=== PATIENT | female | born 1990 | race Caucasian/White ===

== ENCOUNTER → 2017-10-13 15:28 | Outpatient (REF) | payer SELFPAY ==
[2017-10-18 13:08] LABS: TB Interpretation Negative (NEGAT)
== END ==
LOC: LBO 15:28
PROVIDERS: PCP Physician Assistant Medical; Visit Provider Nurse Practitioner Family
DX: Z02.1 Encounter for pre-employment examination (principal); Z11.1 Encounter for screening for respiratory tuberculosis

== ENCOUNTER 2017-12-21 13:12 | Emergency (ER) | payer MEDICAID, SELFPAY ==
[2017-12-21 13:51] VITALS: PULSE 96; RESP 16; RESP 4; RESP 8; O2SAT 97
[2017-12-21] MEDS: Albuterol/Ipratropium 3 ML UPD VIAL UPD (13:51)
[2017-12-21 13:53] VITALS: BP 102/62; PULSE 96; RESP 16; TEMP 36.3; O2SAT 97
[2017-12-21] MEDS: methylPREDNISolone SUCC 125 MG VIAL IM (14:09)
--- NOTE | 2017-12-22 13:49 | W.ED.GENAD ---
Discharge Plan Disposition Patient Disposition: HOME Condition: Good Discharge Details Chief Complaint: RespSymp Clinical Impression: Asthma exacerbation, URI (upper respiratory infection) Primary Care Provider: Awilda Martin ED Provider: Abdon Wilson Home Meds and New Rx's Prescriptions: New albuterol sulfate 1.25 mg/3 mL solution for nebulization 2.5 mg IH Q4H PRN (Reason: shortness of breath or wheezing) Qty: 75 RF: 0 prednisone 50 MG tablet 50 mg PO DAILY Qty: 5 RF: 0 azithromycin 500 mg tablet See Label Instructions .ROUTE .COMPLEX Qty: 6 RF: 0 No Action levothyroxine [Synthroid] 50 MCG tablet 75 mcg PO DAILY RF: 0 escitalopram oxalate [Lexapro] 10 MG tablet 30 mg PO DAILY RF: 0 ibuprofen 800 MG tablet 800 mg PO TID PRNQty: 15 RF: 0 lorazepam 1 MG tablet 1 mg PO PRN PRNRF: 0 Discharge Instructions Instructions: Asthma (ED), Upper Respiratory Infection (ED) Additional Instructions: Please take the breathing treatments every 4 hours as directed. Please take the steroid as directed. If you do not have any improvement of your symptoms after 24 hours please begin taking the antibiotic. Please stop smoking. If you notice any worsening of your symptoms, or any new symptoms such as vomiting, diarrhea, fever, chills, shortness of breath, chest pain, numbness, weakness, or fainting , please return immediately to the emergency department for reevaluation. Please follow up with your primary care provider as soon as possible for reassessment and reevaluation. As always, it was a pleasure participating in your medical care today. Referrals: Awilda Martin PA [Primary Care Provider] - Discharge Data Discharge Date/Time-TO BE ENTERED AT DEPARTURE: 12/21/17 14:26 Medical Decision Making This is a pleasant 27-year-old female who presents for evaluation of cough, with productive yellow sputum the last 4 days. Physical exam demonstrates mild wheezes, no significant crackles or rhonchi. Pulse oximetry demonstrates excellent oxygenation, no significant tachypnea. Vital signs are normal. She does have clinical symptoms of an upper respiratory infection, however with her tobacco use history, cough with chills, productive yellow sputum, and mild wheezes I feel that she would benefit from breathing treatment. Patient was given breathing treatment and after this she felt much improved. Wheezes notably improved. Signs and symptoms are consistent with upper respiratory infection, with associated reactive airway disease. We will give steroids for home use, antibiotic for potential atypical coverage of both sinus infection and potential respiratory infection, and instructions for close follow-up with PCP. We discussed red flags which to return the patient understands. I have extensively reviewed the treatment plan and discharge instructions with the patient and their family. I have addressed all patient concerns at this time. The patient and family was made aware of what symptoms to monitor for that would warrant a return to the emergency department. Discussed the plan with the patient and family, they demonstrate verbal understanding and agreement with our assessment and plan at this time. HPI General Date/Time Provider Initiated Documentation: 12/21/17 13:33. HPI Narrative: This is a 27-year-old female with a past medical history of tubal ligation, previous history of tobacco abuse, who presents today for evaluation of cough for the last 4 days with associated yellow phlegm, occasional chills, and mild shortness of breath. She has been using her inhaler 4 times per day and has had some improvement with this. She denies any associated symptoms of fever, vomiting, diarrhea, pleuritic chest pain. Denies PE risk factors such as recent long car rides, immobilization, recent surgery, prior history of DVT or PE, family history of PE or DVT, morbid obesity, exogenous estrogen and smoking, hemoptysis, history of cancer. She does admit to other sick contacts at work and at home. She denies any aggravating or relieving factors. She denies any IV or illicit drug use. She denies any other symptoms at this time. Related Data Home Medications Medication Instructions Recorded Confirmed levothyroxine [Synthroid] 75 mcg PO DAILY tab-cap 10/20/12 12/21/17 escitalopram oxalate [Lexapro] 30 mg PO DAILY 11/30/15 12/21/17 lorazepam 1 mg PO PRN PRN 11/05/16 12/21/17 ibuprofen 800 mg PO TID PRN #15 tab 07/31/17 12/21/17 albuterol sulfate 2.5 mg IH Q4H PRN #75 ml 12/21/17 azithromycin See Label Instructions .ROUTE 12/21/17 .COMPLEX #6 tab prednisone 50 mg PO DAILY #5 tab 12/21/17 Previous Rx's Medication Instructions Recorded ibuprofen 800 mg PO TID PRN #15 tab 07/31/17 albuterol sulfate 2.5 mg IH Q4H PRN #75 ml 12/21/17 azithromycin See Label Instructions .ROUTE 12/21/17 .COMPLEX #6 tab prednisone 50 mg PO DAILY #5 tab 12/21/17 Allergies Allergy/AdvReac Type Severity Reaction Status Date / Time trazodone AdvReac Severe Headache Unverified 01/21/17 21:20 General Stated Complaint: RespSymp RE: 3 Review of Systems Review of Systems All systems reviewed & are unremarkable except as noted in HPI and below PFSH Social History Smoking/Tobacco Use Status: Current every day Surgical History Cervical Procedure Ligation of fallopian tube Exam Narrative Exam Narrative: 1.Const: Well-nourished, Well-developed, appearing stated age 2.Eyes: PERRL, no conjunctival injection, and symmetrical lids. 3.ENT: Atraumatic external nose and ears. Moist MM. Neck: Symmetric, trachea midline, No thyromegaly. Mild congestion noted. No significant erythema in the posterior oropharynx. Patient demonstrates good movement of cervical neck. There is no nuchal rigidity, no nuchal tenderness. Patient is able to flex the neck without any difficulty or significant pain. Negative Kernig's and Brudzinski sign. 4.CVS: +S1/S2, No murmurs or gallops. Peripheral pulses 2+ and equal in all extremities. Brisk capillary refill in all extremities. 5.RESP: Unlabored respiratory effort. No significant rhonchi, minimal wheezes throughout, no significant crackles. 6.GI: Soft, Nontender/Nondistended, No hepatosplenomegaly. No guarding or rebound. 7.MSK: Normocephalic/Atraumatic, Extremities w/o deformity or ttp No cyanosis or clubbing, Normal movement of all extremities 8.Skin: Warm, Dry. No rashes or lesions. 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 Sensation grossly intact, no focal neurologic deficits. 10.Psych: (AAO) x3. Appropriate mood and affect Course Vital Signs Pulse 96 H 12/21/17 13:51 Respiratory Rate 16 12/21/17 13:51 Pulse Oximetry 97 10/09/18 13:51 Temperature 36.3 C L 12/21/17 13:53 Temperature Source Skin 12/21/17 13:53 Pulse 96 H 12/21/17 13:53 Respiratory Rate 16 12/21/17 13:53 Respiratory Effort Non-Labored 12/21/17 14:18 Respiratory Depth Normal 12/21/17 14:18 Blood Pressure 102/62 12/21/17 13:53 Blood Pressure Position Sitting 12/21/17 13:53 Pulse Oximetry 97 12/21/17 13:53 Oxygen Delivery Method Room Air 12/21/17 13:53 Oxygen Flow Rate 0 12/21/17 13:53 Pain Level 4 12/21/17 14:20
== END 2017-12-21 14:26 | disposition home or self-care (01) ==
PROVIDERS: Emergency Provider Student in an Organized Health Care Education/Training Program; PCP Physician Assistant Medical
DX: J45.901 Unspecified asthma with (acute) exacerbation (principal); J06.9 Acute upper respiratory infection, unspecified; F17.210 Nicotine dependence, cigarettes, uncomplicated
CPT/HCPCS: 94640; 96372; 99284; J2930; J7620

== ENCOUNTER 2017-12-22 20:16 | Outpatient (REF) | payer MEDICAID, SELFPAY ==
[2017-12-22 20:39] LABS: TSH 1.04 uIU/mL (0.358-3.74)
== END 2017-12-22 20:36 ==
LOC: NCHCN 20:16
PROVIDERS: PCP Physician Assistant Medical; Visit Provider Physician Assistant Medical
DX: E03.9 Hypothyroidism, unspecified (principal)
CPT/HCPCS: 84443

== ENCOUNTER 2017-12-26 21:40 | Emergency (ER) | payer MEDICAID, SELFPAY ==
[2017-12-26 21:48] VITALS: BP 135/82; PULSE 81; RESP 16; TEMP 36.8; O2SAT 97
--- NOTE | 2017-12-26 22:07 | W.ED.GENAD ---
Discharge Plan Disposition Patient Disposition: HOME Discharge Details Chief Complaint: Cellulitis Clinical Impression: Cellulitis of great toe of right foot Primary Care Provider: Awilda Martin ED Provider: Emiliano Goode Home Meds and New Rx's Prescriptions: New cephalexin [Keflex] 500 mg capsule 500 mg PO QID Qty: 38 RF: 0 Continue levothyroxine [Synthroid] 50 MCG tablet 75 mcg PO DAILY RF: 0 escitalopram oxalate [Lexapro] 10 MG tablet 30 mg PO DAILY RF: 0 ibuprofen 800 MG tablet 800 mg PO TID PRNQty: 15 RF: 0 albuterol sulfate 1.25 mg/3 mL solution for nebulization 2.5 mg IH Q4H PRN (Reason: shortness of breath or wheezing) Qty: 75 RF: 0 lorazepam 1 MG tablet 1 mg PO PRN PRNRF: 0 Discontinued prednisone 50 MG tablet 50 mg PO DAILY Qty: 5 RF: 0 Discharge Instructions Instructions: Cellulitis (ED) Additional Instructions: Take antibiotic as prescribed. Your provided a dose tonight and a dose to take tomorrow morning. Fill your prescription tomorrow morning and continue as prescribed. Please call your rail flaw detector operator tomorrow to arrange follow-up. It is important that you be seen this week in follow-up. Return to the ER for any worsening or new concerning symptoms. Medical Decision Making Medical Records 19-year-old female with right great toe cellulitis 4 weeks status post toenail removal. Started patient on Keflex. Plan to have her follow-up with her rail flaw detector operator tomorrow. HPI General Mode of arrival: ambulatory. Date/Time Provider Initiated Documentation: 12/26/17 21:50. Limitations to Documentation: no limitations. Information obtained by: patient. HPI Narrative: 27-year-old female presents with right great toe pain. Patient notes that 4 weeks ago she was seen by podiatry and had her toenail removed for recurrent onychomycosis. Toe seem to be improving for a while and then over the past few days has increased in swelling and redness. Intensity is moderate. Toe is sore and tender. No associated fever. Related Data Home Medications Medication Instructions Recorded Confirmed levothyroxine [Synthroid] 75 mcg PO DAILY tab-cap 10/20/12 12/26/17 escitalopram oxalate [Lexapro] 30 mg PO DAILY 11/30/15 12/26/17 lorazepam 1 mg PO PRN PRN 11/05/16 12/26/17 ibuprofen 800 mg PO TID PRN #15 tab 07/31/17 12/26/17 albuterol sulfate 2.5 mg IH Q4H PRN #75 ml 12/21/17 12/26/17 cephalexin [Keflex] 500 mg PO QID #38 cap 12/26/17 Previous Rx's Medication Instructions Recorded ibuprofen 800 mg PO TID PRN #15 tab 07/31/17 albuterol sulfate 2.5 mg IH Q4H PRN #75 ml 12/21/17 cephalexin [Keflex] 500 mg PO QID #38 cap 12/26/17 Allergies Allergy/AdvReac Type Severity Reaction Status Date / Time trazodone AdvReac Severe Headache Unverified 12/26/17 21:47 General Stated Complaint: Cellulitis RE: 4 Review of Systems Constitutional Denies fever(s) Integumentary/Breasts [facility] as [facility] Social History Smoking/Tobacco Use Status: Current every day Surgical History Cervical Procedure Ligation of fallopian tube Exam Const General: healthy appearing, no acute distress and well developed Cardio Rate: regular rate Rhythm: regular rhythm Pulses: dorsalis pedis pulses present Skin Other: Right great toe with toenail removed, erythema of the toe extending from interphalangeal joint distally. No tracking of erythema. Extrem Other: rt great toe: distal sensation and motor intact. Course Vital Signs Temperature 36.8 C 12/26/17 21:48 Pulse 81 12/26/17 21:48 Respiratory Rate 16 12/26/17 21:48 Blood Pressure 135/82 12/26/17 21:48 Pulse Oximetry 97 12/26/17 21:48 Temperature 36.8 C 12/26/17 21:48 Temperature Source Tympanic 12/26/17 22:01 Pulse 81 12/26/17 21:48 Respiratory Rate 16 12/26/17 21:48 Respiratory Effort 12/26/17 21:48 Blood Pressure 135/82 12/26/17 21:48 Blood Pressure Position Sitting 12/26/17 21:48 Pulse Oximetry 97 12/26/17 21:48 Oxygen Delivery Method Room Air 12/26/17 21:48 Oxygen Flow Rate 0 12/26/17 21:48 Pain Level 7 12/26/17 21:48
[2017-12-26] MEDS: Cephalexin 500 MG CAP PO ×2 (22:11→22:12)
--- NOTE | 2017-12-26 22:20 | ED.GENADUL_ITS ---
Discharge Plan Disposition Patient Disposition: HOME Discharge Details Chief Complaint: Cellulitis Clinical Impression: Cellulitis of great toe of right foot Primary Care Provider: Awilda Martin ED Provider: Emiliano Goode Home Meds and New Rx's Prescriptions: New cephalexin [Keflex] 500 mg capsule 500 mg PO QID Qty: 38 RF: 0 Continue levothyroxine [Synthroid] 50 MCG tablet 75 mcg PO DAILY RF: 0 escitalopram oxalate [Lexapro] 10 MG tablet 30 mg PO DAILY RF: 0 ibuprofen 800 MG tablet 800 mg PO TID PRNQty: 15 RF: 0 albuterol sulfate 1.25 mg/3 mL solution for nebulization 2.5 mg IH Q4H PRN (Reason: shortness of breath or wheezing) Qty: 75 RF: 0 lorazepam 1 MG tablet 1 mg PO PRN PRNRF: 0 Discontinued prednisone 50 MG tablet 50 mg PO DAILY Qty: 5 RF: 0 Discharge Instructions Instructions: Cellulitis (ED) Additional Instructions: Take antibiotic as prescribed. Your provided a dose tonight and a dose to take tomorrow morning. Fill your prescription tomorrow morning and continue as prescribed. Please call your recorder helper seismograph tomorrow to arrange follow-up. It is important that you be seen this week in follow-up. Return to the ER for any worsening or new concerning symptoms. Medical Decision Making Medical Records 19-year-old female with right great toe cellulitis 4 weeks status post toenail removal. Started patient on Keflex. Plan to have her follow-up with her recorder helper seismograph tomorrow. HPI General Mode of arrival: ambulatory . Date/Time Provider Initiated Documentation: 12/26/17 21:50 . Limitations to Documentation: no limitations . Information obtained by: patient . HPI Narrative: 27-year-old female presents with right great toe pain. Patient notes that 4 weeks ago she was seen by podiatry and had her toenail removed for recurrent onychomycosis. Toe seem to be improving for a while and then over the past few days has increased in swelling and redness. Intensity is moderate. Toe is sore and tender. No associated fever. Related Data Home Medications Medication Instructions Recorded Confirmed levothyroxine [Synthroid] 75 mcg PO DAILY tab-cap 10/20/12 12/26/17 escitalopram oxalate [Lexapro] 30 mg PO DAILY 11/30/15 12/26/17 lorazepam 1 mg PO PRN PRN 11/05/16 12/26/17 ibuprofen 800 mg PO TID PRN #15 tab 07/31/17 12/26/17 albuterol sulfate 2.5 mg IH Q4H PRN #75 ml 12/21/17 12/26/17 cephalexin [Keflex] 500 mg PO QID #38 cap 12/26/17 Previous Rx's Medication Instructions Recorded ibuprofen 800 mg PO TID PRN #15 tab 07/31/17 albuterol sulfate 2.5 mg IH Q4H PRN #75 ml 12/21/17 cephalexin [Keflex] 500 mg PO QID #38 cap 12/26/17 Allergies Allergy/AdvReac Type Severity Reaction Status Date / Time trazodone AdvReac Severe Headache Unverified 12/26/17 21:47 General Stated Complaint: Cellulitis RE: 4 Review of Systems Constitutional Denies fever(s) Integumentary/Breasts Reports as per [facility]PI [facility] Social History Smoking/Tobacco Use Status: Current every day Surgical History Cervical Procedure Ligation of fallopian tube Exam Const General: healthy appearing, no acute distress and well developed Cardio Rate: regular rate Rhythm: regular rhythm Pulses: dorsalis pedis pulses present Skin Other: Right great toe with toenail removed, erythema of the toe extending from interphalangeal joint distally. No tracking of erythema. Extrem Other: rt great toe: distal sensation and motor intact. Course Vital Signs Temperature 36.8 C 12/26/17 21:48 Pulse 81 12/26/17 21:48 Respiratory Rate 16 12/26/17 21:48 Blood Pressure 135/82 12/26/17 21:48 Pulse Oximetry 97 12/26/17 21:48 Temperature 36.8 C 12/26/17 21:48 Temperature Source Tympanic 12/26/17 22:01 Pulse 81 12/26/17 21:48 Respiratory Rate 16 12/26/17 21:48 Respiratory Effort 12/26/17 21:48 Blood Pressure 135/82 12/26/17 21:48 Blood Pressure Position Sitting 12/26/17 21:48 Pulse Oximetry 97 12/26/17 21:48 Oxygen Delivery Method Room Air 12/26/17 21:48 Oxygen Flow Rate 0 12/26/17 21:48 Pain Level 7 12/26/17 21:48
== END 2017-12-26 22:43 | disposition home or self-care (01) ==
LOC: ER 22:56
PROVIDERS: Emergency Provider Student in an Organized Health Care Education/Training Program; PCP Physician Assistant Medical
DX: T81.40XA Infection following a procedure, unspecified, initial encounter (principal); L03.031 Cellulitis of right toe; Y83.8 Other surgical procedures as the cause of abnormal reaction of the patient, or of later complication, without mention of misadventure at the time of the procedure
CPT/HCPCS: 99283

== ENCOUNTER 2018-05-06 14:18 | Emergency (ER) | payer MEDICAID, SELFPAY ==
--- NOTE | 2018-05-06 14:22 | NUR.NOTE ---
tooth eric started 3 days ago
[2018-05-06 14:23] VITALS: PULSE 69; RESP 18; TEMP 37.2; O2SAT 95
--- NOTE | 2018-05-06 14:23 | W.ED.GENAD ---
Discharge Plan Disposition Patient Disposition: HOME Condition: Stable Discharge Details Chief Complaint: DentalOral Clinical Impression: Pain, dental Primary Care Provider: Awilda Martin ED Provider: Olegario Shaikh Home Meds and New Rx's Prescriptions: Continued levothyroxine [Synthroid] 50 MCG tablet 75 mcg PO DAILY RF: 0 escitalopram oxalate [Lexapro] 10 MG tablet 30 mg PO DAILY RF: 0 ibuprofen 800 MG tablet 800 mg PO TID PRNQty: 15 RF: 0 albuterol sulfate 1.25 mg/3 mL solution for nebulization 2.5 mg IH Q4H PRN (Reason: shortness of breath or wheezing) Qty: 75 RF: 0 cephalexin [Keflex] 500 mg capsule 500 mg PO QID Qty: 38 RF: 0 lorazepam 1 MG tablet 1 mg PO PRN PRNRF: 0 Discharge Instructions Instructions: Toothache (ED) Additional Instructions: you can take 1000mg tylenol and 600mg ibuprofen every 6 hours for pain as needed follow up as scheduled on Wednesday with your dentist as scheduled if you have difficulty breathing or swallowing liquids return to the emergency department Medical Decision Making 27 yo female comes in with dental pain for 3 days in the left upper and lower teeth. has hx of caries and called her dentist and is being seen on Wednesday, came here in the meantime for an evaluation. 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 She has pain in the mid upper and lower left molars with pain with percussion, no visible fluctuance that I can drain, has numerous caries. I suspect pulpitis, will start abx and she will f/u with dentist, return precautions given Differential Diagnosis caries, pulpitis, abscess HPI General Mode of arrival: ambulatory. Date/Time Provider Initiated Documentation: 05/06/18 14:19. Limitations to Documentation: no limitations. Information obtained by: patient. History of Present Illness 27 year old F presents to the emergency department with the chief complaint of dental pain, described as moderate, with intensity rated at 4. Quality is described as aching, and is localized to the mouth. Patient reports no radiation. Patient started experiencing this day(s) (3) and it has been constant. No relieving factors improve symptom(s), No exacerbating factors reported . Patient notes no other symptoms.. Patient did receive the following treatments prior to arrival, NSAID Related Data Home Medications Medication Instructions Recorded Confirmed levothyroxine [Synthroid] 75 mcg PO DAILY tab-cap 10/20/12 12/26/17 escitalopram oxalate [Lexapro] 30 mg PO DAILY 11/30/15 12/26/17 lorazepam 1 mg PO PRN PRN 11/05/16 12/26/17 ibuprofen 800 mg PO TID PRN #15 tab 07/31/17 12/26/17 albuterol sulfate 2.5 mg IH Q4H PRN #75 ml 12/21/17 12/26/17 cephalexin [Keflex] 500 mg PO QID #38 cap 12/26/17 Previous Rx's Medication Instructions Recorded ibuprofen 800 mg PO TID PRN #15 tab 07/31/17 albuterol sulfate 2.5 mg IH Q4H PRN #75 ml 12/21/17 cephalexin [Keflex] 500 mg PO QID #38 cap 12/26/17 Allergies Allergy/AdvReac Type Severity Reaction Status Date / Time trazodone AdvReac Severe Headache Unverified 05/06/18 14:28 General RE: 4 Review of Systems Review of Systems All systems reviewed & are unremarkable except as noted in HPI and below Constitutional Denies chills, Denies fever(s) and Denies weakness ENT Denies change in voice Respiratory Denies cough Gastrointestinal Denies abdominal pain, Denies nausea and Denies vomiting Musculoskeletal Denies joint swelling Neurologic Denies weakness [facility] Surgical History Cervical Procedure Ligation of fallopian tube Social History Smoking and Tabacco status: Current every day Exam Const General: no acute distress Orientation: alert HENMT Head: normal to inspection Ears: external ears normal General nose exam: external nose normal Mouth: moist mucous membranes Eyes General: appearance normal, both eyes and all related structures Neck Neck: normal visual inspection Resp Effort & Inspection: normal respiratory effort and able to speak in complete sentences Cardio Rate: regular rate Skin General skin exam: no rashes or lesions noted Neuro General: alert and oriented x3 Extrem General: normal to inspection Psych Mental Status: mental status grossly normal
[2018-05-06 14:32] VITALS: PULSE 69; RESP 18; TEMP 37.2; O2SAT 95
== END 2018-05-06 14:38 | disposition home or self-care (01) ==
LOC: ER 14:35
PROVIDERS: Emergency Provider Emergency Medicine; PCP Physician Assistant Medical
DX: K08.89 Other specified disorders of teeth and supporting structures (principal); K02.9 Dental caries, unspecified
CPT/HCPCS: 99282

== ENCOUNTER 2018-05-14 09:43 | Emergency (ER) | payer MEDICAID, SELFPAY ==
[2018-05-14 09:51] VITALS: BP 129/72; PULSE 69; RESP 16; TEMP 36.5; O2SAT 98
--- NOTE | 2018-05-14 10:15 | ED.GENADUL_ITS ---
Discharge Plan Disposition Patient Disposition: HOME Condition: Stable Discharge Details Chief Complaint: DentalOral Clinical Impression: Pain, dental Primary Care Provider: Awilda Martin ED Provider: Travon Love Home Meds and New Rx's Prescriptions: Continued levothyroxine [Synthroid] 50 MCG tablet 75 mcg PO DAILY RF: 0 escitalopram oxalate [Lexapro] 10 MG tablet 30 mg PO DAILY RF: 0 ibuprofen 800 MG tablet 800 mg PO TID PRNQty: 15 RF: 0 albuterol sulfate 1.25 mg/3 mL solution for nebulization 2.5 mg IH Q4H PRN (Reason: shortness of breath or wheezing) Qty: 75 RF: 0 cephalexin [Keflex] 500 mg capsule 500 mg PO QID Qty: 38 RF: 0 lorazepam 1 MG tablet 1 mg PO PRN PRNRF: 0 Discharge Instructions Instructions: Toothache (ED), Dry Socket (ED) Additional Instructions: Please follow-up with dental services if pain continues and there is further concern. Also if you begin running a fever, severe increase in pain or discomfort, or any significant swelling to your tongue face or jaw also feel free to return to the emergency department for emergent reevaluation. Referrals: Awilda Martin PA [Primary Care Provider] - (Follow-up with dental provider or your primary care provider for reassessment. ) Medical Decision Making Patient presenting to the emergency department for chief complaint of dental pain. Patient states that she had a tooth removed on Wednesday beginning yesterday she started having a new increase in pain and discomfort. Patient does state history of dry socket with similar sensation. Examination shows what appears to be a food particle in the retained socket. Topical benzocaine gel was applied to the tooth and tooth socket was irrigated and suctioned which p atient tolerated very well. There is a dissolvable suture in place. Was not able to easily identify bone exposed in socket but no obvious clot was also visualized. Patient did state significant improvement of discomfort and pressure after irrigation and suctioning of the socket. Patient did state that she was able to obtain a emergency dental appointment at 1:00 this afternoon but since she had resolution of her discomfort after irrigation she stated she may observe her situation. Patient was informed that I did recommend close dental follow-up along with her continuing her antibiotics as prescribed. Patient given ketorolac injection to also help with pain control and was encouraged to continue to use [id number] medications as needed along with irrigation of the socket after eating. Return precautions were discussed. After discussion of diagnosis and plan of care patient has no further needs, questions, or concerns and states clear understanding to return to the emergency department for any worsening symptoms. HPI General Mode of arrival: ambulatory . Date/Time Provider Initiated Documentation: 05/14/18 09:59 . Limitations to Documentation: no limitations . Information obtained by: patient and RN notes reviewed . History of Present Illness 27 year old F presents to the emergency department with the chief complaint of Dental pain after tooth extraction, described as severe, with intensity rated at >10. Quality is described as sharp, and is localized to the mouth. Patient started experiencing this day(s) (1) and it has been constant. No relieving factors improve symptom(s), Patient notes no other symptoms.. Patient did receive the following treatments prior to arrival, NSAID Related Data Home Medications Medication Instructions Recorded Confirmed levothyroxine [Synthroid] 75 mcg PO DAILY tab-cap 10/20/12 05/14/18 escitalopram oxalate [Lexapro] 30 mg PO DAILY 11/30/15 05/14/18 lorazepam 1 mg PO PRN PRN 11/05/16 05/14/18 ibuprofen 800 mg PO TID PRN #15 tab 07/31/17 05/14/18 albuterol sulfate 2.5 mg IH Q4H PRN #75 ml 12/21/17 05/14/18 cephalexin [Keflex] 500 mg PO QID #38 cap 12/26/17 05/14/18 Previous Rx's Medication Instructions Recorded ibuprofen 800 mg PO TID PRN #15 tab 07/31/17 albuterol sulfate 2.5 mg IH Q4H PRN #75 ml 12/21/17 cephalexin [Keflex] 500 mg PO QID #38 cap 12/26/17 Allergies Allergy/AdvReac Type Severity Reaction Status Date / Time trazodone AdvReac Severe Headache Unverified 05/14/18 09:56 General Stated Complaint: DentalOral RE: 4 Review of Systems Constitutional Denies chills and Denies fever(s) ENT Reports as per HPI, Denies change in voice, Reports dental pain, Denies dysphagia, Denies throat swelling and Denies tongue swelling Cardiovascular Denies chest pain and Denies dyspnea Respiratory Denies dyspnea, Denies stridor and Denies wheezing Gastrointestinal Denies abdominal pain, Denies dysphagia, Denies nausea and Denies vomiting Integumentary/Breasts Denies rash Allergic/Immunologic Denies throat swelling, Denies tongue swelling and Denies wheezing [facility] Surgical History Cervical Procedure Ligation of fallopian tube Social History Smoking and Tabacco status: Current every day Exam Const General: cooperative Orientation: alert, awake and oriented x3 Limitations: mental status not altered HENMT Head: normal to inspection, normocephalic and atraumatic Ears: hearing grossly normal bilaterally, normal mastoids bilaterally and no periauricular adenopathy General nose exam: external nose normal Mouth: oropharynx normal, no drooling, no muffled voice, normal tongue and no trismus Teeth and gingiva: fair dentition and other (missing tooth 19 with open socket and food particle in socket) Throat: posterior oropharynx normal, tonsils normal and uvula midline Eyes General: appearance normal, both eyes and all related structures Pupils: PERRL Neck Neck: normal visual inspection, full ROM, no lymphadenopathy, no meningeal signs, trachea midline, supple, no anterior neck swelling and no midline deformity Resp Effort & Inspection: normal respiratory effort and able to speak in complete sentences Course Vital Signs Temperature 36.5 C 05/14/18 09:51 Pulse 69 05/14/18 09:51 Respiratory Rate 16 05/14/18 09:51 Blood Pressure 129/72 05/14/18 09:51 Pulse Oximetry 98 05/14/18 09:51 Temperature 36.5 C 05/14/18 09:51 Temperature Source Skin 05/14/18 09:51 Pulse 69 05/14/18 09:51 Respiratory Rate 16 05/14/18 09:51 Respiratory Effort Non-Labored 05/14/18 09:51 Blood Pressure 129/72 05/14/18 09:51 Pulse Oximetry 98 05/14/18 09:51 Pain Level 12 05/14/18 09:57
[2018-05-14] MEDS: Ketorolac 30 MG/ML VIAL IM (10:22)
[2018-05-14 10:54] VITALS: BP 129/72; PULSE 69; RESP 16; TEMP 36.5; O2SAT 98
== END 2018-05-14 10:53 | disposition home or self-care (01) ==
PROVIDERS: Emergency Provider Nurse Practitioner Family; PCP Physician Assistant Medical
DX: R68.84 Jaw pain (principal); K08.89 Other specified disorders of teeth and supporting structures; G89.18 Other acute postprocedural pain; Y84.8 Other medical procedures as the cause of abnormal reaction of the patient, or of later complication, without mention of misadventure at the time of the procedure
CPT/HCPCS: 96372; 99284; J1885

== ENCOUNTER 2018-06-08 14:23 | Outpatient (REF) | payer MEDICAID, SELFPAY ==
--- NOTE | 2018-06-08 14:00 | PAPFT_PTH ---
PATIENT: Jovita Pop LOC: Y[facility] U#:[id number] AGE/SX: 27/F ROOM: RE06/08/[address]: Adalid Mcgowan MD : [id number] BED: DIS: 06/08/2018 SPEC #: [id number] RECD: 06/08/18 17:57 STATUS: MEÑO REJhony #: [id number] CHRISTIAN: 06/08/18 14:[address]: Adalid Mcgowan DEPT: [facility] Cytology RECD BY: Augusta Ocampo ENTERED: 06/08/18 17:58 SP TYPE: PAPFT OT DR: Awilda Martin Tissues: 1 - CX/ENDOCX FOR PAP SMEARS Procedures: PAP THIN PREP/UVM Screening Comments: [id number]
== END 2018-06-08 14:43 ==
LOC: LBN 14:23
PROVIDERS: PCP Physician Assistant Medical; Visit Provider Obstetrics & Gynecology
DX: Z12.4 Encounter for screening for malignant neoplasm of cervix (principal)
CPT/HCPCS: 88142

== ENCOUNTER 2018-06-13 14:39 | Outpatient (REF) | payer MEDICAID, SELFPAY ==
[2018-06-13 21:27] LABS: TSH 4.69 uIU/mL (0.358-3.74)
== END 2018-06-13 14:59 ==
LOC: NCHCN 14:39
PROVIDERS: PCP Physician Assistant Medical; Visit Provider Physician Assistant Medical
DX: E03.9 Hypothyroidism, unspecified (principal)
CPT/HCPCS: 84443

== ENCOUNTER 2018-10-24 22:28 | Outpatient (REF) | payer MEDICAID, SELFPAY | END 2018-10-24 22:48 | LOC: NCHCN 22:28 | PROVIDERS: PCP Physician Assistant Medical; Visit Provider Physician Assistant Medical | DX: E03.9 Hypothyroidism, unspecified (principal) | CPT/HCPCS: 84443 ==

== ENCOUNTER 2019-04-02 23:26 | Emergency (ER) | payer MEDICAID, SELFPAY ==
[2019-04-02 23:30] VITALS: BP 128/70; PULSE 97; RESP 16; TEMP 36.9; O2SAT 96
--- NOTE | 2019-04-02 23:52 | ED.GENADUL_ITS ---
Discharge Plan Disposition Patient Disposition: HOME Condition: Good Discharge Details Chief Complaint: Sorethroat Clinical Impression: Strep pharyngitis Primary Care Provider: Awilda Martin ED Provider: Abdon Wilson Home Meds and New Rx's Prescriptions: New amoxicillin-pot clavulanate [Augmentin] 875-125 mg tablet 1 tab PO BID Qty: 20 RF: 0 Continued levothyroxine [Synthroid] 50 MCG tablet 75 mcg PO DAILY RF: 0 escitalopram oxalate [Lexapro] 10 MG tablet 30 mg PO DAILY RF: 0 ibuprofen 800 MG tablet 800 mg PO TID PRNQty: 15 RF: 0 albuterol sulfate 1.25 mg/3 mL solution for nebulization 2.5 mg IH Q4H PRN (Reason: shortness of breath or wheezing) Qty: 75 RF: 0 lorazepam 1 MG tablet 1 mg PO PRN PRNRF: 0 aripiprazole [Abilify] 5 mg Tablet 5 mg PO DAILY RF: 0 Discharge Instructions Instructions: Strep Throat (ED) Additional Instructions: Your strep throat. Please take the antibiotic as directed. Please take 800 mg of ibuprofen every 6 hours and 1000 mg of Tylenol every 6 hours. These are the maximum doses. If you notice any worsening of your symptoms, or any new symptoms such as vomiting, diarrhea, fever, chills, shortness of breath, chest pain, numbness, weakness, or fainting , please return immediately to the emergency department for reevaluation. Please follow up with your primary care provider as soon as possible for reassessment and reevaluation. As always, it was a pleasure participating in your medical care today. Stand Alone Forms: Work Release Referrals: Awilda Martin PA [Primary Care Provider] - Discharge Data Discharge Date/Time-TO BE ENTERED AT DEPARTURE: 04/03/19 00:10 Medical Decision Making This is a 28-year-old female who presents with a day of right-sided throat pain. Physical exam demonstrates slightly enlarged right tonsil, no significant exudates. Mild erythema. No evidence of peritonsillar abscess on palpation. No uvular deviation. No clinical meningitis. Symptoms are inconsistent with mono. Strep test was positive. Signs and symptoms are consistent with mild strep throat. No evidence of surgically necessitating tonsillitis. We will give Augmentin, recommend Tylenol and Motrin. We will give a dose of Toradol here. Recommend continued fluids at home. Discussed red flags which to return. I have extensively reviewed the treatment plan and discharge instructions with the patient. I have addressed all patient concerns at this time. The patient was made aware of what symptoms to monitor for that would warrant a return to the emergency department. Discussed the plan with the patient, they demonstrate verbal understanding and agreement with our assessment and plan at this time. HPI General Date/Time Provider Initiated Documentation: 04/02/19 23:31 . HPI Narrative: This is a pleasant 28-year-old female with no significant past medical history aside for thyroid disease who presents today for evaluation of right sore throat. Symptoms have been present for the last day. She denies any difficulty swallowing or drinking, but she does have mild pain with this. She denies fever or chills. She denies headache neck pain posterior aspect, chest pain cough or shortness of breath. No other complaints at this time. She does admit to mild nausea though. She denies any severe profound fatigue, or any recent sick contacts with mono. Related Data Home Medications Medication Instructions Recorded Confirmed levothyroxine [Synthroid] 75 mcg PO DAILY tab-cap 10/20/12 04/02/19 escitalopram oxalate [Lexapro] 30 mg PO DAILY 11/30/15 04/02/19 lorazepam 1 mg PO PRN PRN 11/05/16 04/02/19 ibuprofen 800 mg PO TID PRN #15 tab 07/31/17 04/02/19 albuterol sulfate 2.5 mg IH Q4H PRN #75 ml 12/21/17 04/02/19 amoxicillin-pot clavulanate 1 tab PO BID #20 tab 04/02/19 [Augmentin] aripiprazole [Abilify] 5 mg PO DAILY 04/02/19 04/02/19 Previous Rx's Medication Instructions Recorded ibuprofen 800 mg PO TID PRN #15 tab 07/31/17 albuterol sulfate 2.5 mg IH Q4H PRN #75 ml 12/21/17 amoxicillin-pot clavulanate 1 tab PO BID #20 tab 04/02/19 [Augmentin] Allergies Allergy/AdvReac Type Severity Reaction Status Date / Time trazodone AdvReac Severe Headache Unverified 06/08/18 13:20 General Stated Complaint: Sorethroat RE: 4 Review of Systems All systems reviewed & are unremarkable except as noted in HPI and below PFSH Social History Smoking/Tobacco Use Status: Current every day Quit status: not considering quitting Counseling given: support program Alcohol Intake: current Alcohol Intake frequency: holidays/special occasions only Drug use: Rarely Substance use type: does not use Do you feel safe at home: Yes Do you feel safe in your relationship?: Yes Exam Narrative Exam Narrative: 1.Const: Well-nourished, Well-developed, appearing stated age 2.Eyes: PERRL, no conjunctival injection, and symmetrical lids. 3.ENT: Atraumatic external nose and ears. Moist MM. Neck: Symmetric, trachea midline, No thyromegaly. No evidence of goiter. Posterior oropharynx demonstrates slightly enlarged right tonsil, no uvular deviation, palpation of the posterior oropharynx demonstrates no evidence of peritonsillar abscess, swelling or fluctuance. Left tonsils normal size. Mild erythema in the posterior right. No evidence of petechiae, or ulcerations. No other abnormalities. Patient swallows well. No evidence of Ludewig's angina. Patient demonstrates good movement of cervical neck. There is no nuchal rigidity, no nuchal tenderness. Patient is able to flex the neck without any difficulty or significant pain. Negative Kernig's and Brudzinski sign. 4.CVS: +S1/S2, No murmurs or gallops. Peripheral pulses 2+ and equal in all extremities. Brisk capillary refill in all extremities. 5.RESP: Unlabored respiratory effort. Clear to auscultation bilaterally. No wheezes rales or rhonchi 6.GI: Soft, Nontender/Nondistended, No hepatosplenomegaly. No guarding or rebound. 7.MSK: Normocephalic/Atraumatic, Extremities w/o deformity or ttp No cyanosis or clubbing, Normal movement of all extremities 8.Skin: Warm, Dry. No rashes or lesions. 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 Sensation grossly intact, no focal neurologic deficits. 10.Psych: (AAO) x3. Appropriate mood and affect Course Vital Signs Vital signs: Vital Signs Temperature 36.9 C 04/02/19 23:30 Pulse 97 H 04/02/19 23:30 Respiratory Rate 16 04/02/19 23:30 Blood Pressure 128/70 04/02/19 23:30 Pulse Oximetry 96 04/02/19 23:30 Temperature 36.9 C 04/02/19 23:30 Temperature Source Skin 04/02/19 23:30 Pulse 97 H 04/02/19 23:30 Respiratory Rate 16 04/02/19 23:30 Respiratory Effort 04/02/19 23:32 Blood Pressure 128/70 04/02/19 23:30 Blood Pressure Position Sitting 04/02/19 23:30 Pulse Oximetry 96 04/02/19 23:30 Oxygen Delivery Method Room Air 04/02/19 23:30 Oxygen Flow Rate 0 04/02/19 23:30 Pain Level 9 04/02/19 23:30 Comment 04/02/19 23:30 Lab/Test Results Lab/Test Results: POC Strep Test-VÍCTOR(Rapid) Start: 04/02/19 23:48 Freq: Status: Active Protocol: Document 04/02/19 23:48 (Rec: 04/02/19 23:48 [email or web address]) Strep test-VÍCTOR(Rapid)-POC POC-Strep test-VÍCTOR (Rapid) Positive POC-Strep test-VÍCTOR (Rapid) Positive
[2019-04-02] MEDS: Ketorolac 30 MG/ML VIAL IM (23:57)
[2019-04-02] MEDS: Amoxicillin 875/Clav. 125 TAB PO (23:58)
== END 2019-04-03 00:10 | disposition home or self-care (01) ==
PROVIDERS: Emergency Provider Student in an Organized Health Care Education/Training Program; PCP Physician Assistant Medical
DX: J02.0 Streptococcal pharyngitis (principal); F17.210 Nicotine dependence, cigarettes, uncomplicated
CPT/HCPCS: 87880; 96372; 99284; 99283; J1885

== ENCOUNTER 2019-04-26 11:23 | Outpatient (CLI) | payer MEDICAID, SELFPAY ==
--- NOTE | 2019-04-26 08:33 | DI.RAD_ITS ---
EXAM: XR CHEST 2V PA LATERAL CLINICAL HISTORY: H/O POSITIVE PPD, Z87.898 TECHNIQUE: 2D digital imaging was performed. COMPARISON: CHEST 2 VIEWS PA,LAT from 04/12/2014 FINDINGS: The cardiac and mediastinal contours have a normal appearance. The lungs are well inflated and clear . No infiltrate, effusion or pneumothorax is seen. No spine or rib fracture is identified. IMPRESSION: Negative chest x-ray.
== END 2019-04-26 11:43 ==
PROVIDERS: PCP Physician Assistant Medical; Visit Provider Physician Assistant Medical
DX: Z87.898 Personal history of other specified conditions (principal)
CPT/HCPCS: 71046

== ENCOUNTER 2019-04-29 16:37 | Emergency (ER) | payer MEDICAID, SELFPAY ==
[2019-04-29 16:42] VITALS: BP 119/73; PULSE 108; RESP 16; TEMP 37.5; O2SAT 98
--- NOTE | 2019-04-29 17:16 | ED.GENADUL_ITS ---
Discharge Plan Disposition Patient Disposition: HOME Condition: Stable Discharge Details Chief Complaint: GenMedical Clinical Impression: Influenza Primary Care Provider: Awilda Martin ED Provider: Mame Toscano Home Meds and New Rx's Prescriptions: New oseltamivir [Tamiflu] 75 mg capsule 75 mg PO BID 5 Days Qty: 10 RF: 0 albuterol sulfate [Proventil HFA] 90 mcg/actuation HFA aerosol inhaler 2 puff IH Q6H PRN (Reason: shortness of breath or wheezing) Qty: 8.5 RF: 0 No Action levothyroxine [Synthroid] 50 MCG tablet 75 mcg PO DAILY RF: 0 escitalopram oxalate [Lexapro] 10 MG tablet 30 mg PO DAILY RF: 0 ibuprofen 800 MG tablet 800 mg PO TID PRNQty: 15 RF: 0 albuterol sulfate 1.25 mg/3 mL solution for nebulization 2.5 mg IH Q4H PRN (Reason: shortness of breath or wheezing) Qty: 75 RF: 0 lorazepam 1 MG tablet 1 mg PO PRN PRNRF: 0 aripiprazole [Abilify] 5 mg Tablet 5 mg PO DAILY RF: 0 Discharge Instructions Instructions: Influenza (ED) Additional Instructions: Drink plenty of fluids. Increase vitamin C. Motrin or Tylenol for soreness if needed. Rest activities as tolerated. Use inhaler if needed every 6 hours. Consider humidifier by the bedside. Tamiflu as prescribed. Recheck with primary care doctor if not improving the next 5 to 7 days. Return to the emergency room immediately for any concerns, worsening or alarming symptoms specifically observe for any difficulty breathing or signs of dehydration as discussed Stand Alone Forms: Work Release Medical Decision Making Is a 28-year-old patient presenting to the ER for complaints of flulike symptoms for the last 24 hours. Patient reports vomiting last night which has since resolved. Denies associated diarrhea. Otherwise reports widespread body ache, headache, dizziness temperature of 102 this morning. Nasal congestion and predominantly dry cough present. Patient is a smoker but no associated wheezing or difficulty breathing at this time. Patient does report chest soreness with coughing. Patient concerned with the possibility of influenza she does have ill contacts with similar however no household contacts with similar. Patient has taken no Motrin or Tylenol today. Influenza testing ordered. Physical exam reveals mild effusion in the left ear, pharyngeal erythema, clear breath sounds. Afebrile at this time in no apparent distress. Patient was offered a strep test due to pharyngeal erythema present, in addition as she r eports 3 weeks ago she did have strep throat which has since entirely improved. Patient declined strep testing at this time. Tylenol provided for achiness while pending flu testing Influenza testing is negative. I did discuss that clinically patient is very much consistent with the flu. I did offer Tamiflu for this reason. Patient's preference is to take Tamiflu. Discussed risk and benefit of taking Tamiflu medication. Encouraged hydration as well as observation for any difficulty breathing. Patient reports her understanding. Offered prescriptions and declines would prefer conservative [id number] treatments. Will consent to prescription for inhaler as patient has an inhaler at home. Denies any other concerns or complaints The patient was stable and requested discharge. Prior to discharge, my usual and customary return precautions were reviewed with the patient - this included follow-up instructions and reasons to return to the Emergency Department if conditions worsens, does not improve as expected, or other new concerns arise. HPI General Date/Time Provider Initiated Documentation: 04/29/19 16:39 . HPI Narrative: Is a 28-year-old patient presenting to the emergency room for complaints of flulike symptoms. Onset of symptoms last 24 hours. Patient reports last night onset of vomiting no associated diarrhea. Patient reports vomiting has since resolved. Patient reports this morning onset of dizziness, headache, widespread body ache, fever of 102 measured at home. Patient reports nasal congestion and a cough. Denies associated difficulty breathing shortness of breath or wheezing. Patient denies abdominal pain or bowel changes at this time. Patient is decrease in appetite this morning. Patient is able to tolerate fluids by mouth. Patient has taken no Motrin or Tylenol prior to arrival. Patient is a smoker. Denies any other significant medical problems. No other concerns or complaints at this time. Related Data Home Medications Medication Instructions Recorded Confirmed levothyroxine [Synthroid] 75 mcg PO DAILY tab-cap 10/20/12 04/29/19 escitalopram oxalate [Lexapro] 30 mg PO DAILY 11/30/15 04/29/19 lorazepam 1 mg PO PRN PRN 11/05/16 04/29/19 ibuprofen 800 mg PO TID PRN #15 tab 07/31/17 04/29/19 albuterol sulfate 2.5 mg IH Q4H PRN #75 ml 12/21/17 04/29/19 aripiprazole [Abilify] 5 mg PO DAILY 04/02/19 04/29/19 albuterol sulfate [Proventil HFA] 2 puff IH Q6H PRN #8.5 gm 04/29/19 oseltamivir [Tamiflu] 75 mg PO BID 5 Days #10 cap 04/29/19 Previous Rx's Medication Instructions Recorded ibuprofen 800 mg PO TID PRN #15 tab 07/31/17 albuterol sulfate 2.5 mg IH Q4H PRN #75 ml 12/21/17 albuterol sulfate [Proventil HFA] 2 puff IH Q6H PRN #8.5 gm 04/29/19 oseltamivir [Tamiflu] 75 mg PO BID 5 Days #10 cap 04/29/19 Allergies Allergy/AdvReac Type Severity Reaction Status Date / Time trazodone AdvReac Severe Headache Unverified 04/29/19 16:55 General Stated Complaint: GenMedical RE: 3 Review of Systems All systems reviewed & are unremarkable except as noted in HPI and below Constitutional Constitutional: Reports chills, Reports fatigue, Reports fever(s), Reports headache(s) and Reports malaise ENT Ears, Nose, Mouth, and Throat: Denies vertigo, Reports dizziness, Denies otalgia, Reports headache(s), Reports nasal congestion, Denies sinus pain, Denies sinus pressure, Denies sore throat and Denies throat swelling Cardiovascular Cardiovascular: Denies dyspnea and Denies dyspnea on exertion Respiratory Respiratory: Reports cough, Denies dyspnea, Denies dyspnea on exertion and Denies wheezing Gastrointestinal Gastrointestinal: Reports abdominal pain, Denies diarrhea, Reports nausea and Reports vomiting Genitourinary Genitourinary: Denies hematuria, Denies dysuria and Denies urinary urgency Neurologic Neurologic: Denies vertigo, Reports dizziness and Reports headache(s) Endocrine Endocrine: Reports fatigue Allergic/Immunologic Allergic/Immunologic: Denies throat swelling and Denies wheezing PFSH Social History Smoking/Tobacco Use Status: Current every day Tobacco Type: cigarettes Quit status: not considering quitting Counseling given: support program Alcohol Intake: current Alcohol Intake frequency: holidays/special occasions only Drug use: Rarely Substance use type: does not use Do you feel safe at home: Yes Do you feel safe in your relationship?: Yes Exam Narrative Exam Narrative: CONST: in no acute distress. Well hydrated. Alert and oriented. HENMT: Head nomocephalic, normal to inspection. Atraumatic. Hearing grossly normal. TM on the right appears normal, on the left with mild effusion. No bulging, pharyngeal erythema present. No tonsillar swelling or exudate. EYES: General normal appearance. Alignment normal. Eyelids normal. Conjunctiva normal. NECK: Normal visual inspection. FROM. Trachea midline. No Midline tenderness. No cervical lymphadenopathy present CHEST: Normal insepection of the chest. RESP: Normal respiratory effort. Speaking full sentences. No cough. No audible wheezing. No retractions. Breath sounds clear, full and equal bilaterally. No wheezing, rhonchi or rales. CARDIO: No JVD. No murmur. Regular rate and rhythm SKIN: Normal. Dry. No rashes. NEURO: Alert and awake. Speech clear. PSYCH: Normal affect. Cooperative. Course Vital Signs Vital signs: Vital Signs Temperature 37.5 C 04/29/19 16:42 Pulse 108 H 04/29/19 16:42 Respiratory Rate 16 04/29/19 16:42 Blood Pressure 119/73 04/29/19 16:42 Pulse Oximetry 98 04/29/19 16:42 Temperature 37.5 C 04/29/19 16:42 Temperature Source Temporal Artery Scan 04/29/19 16:42 Pulse 108 H 04/29/19 16:42 Respiratory Rate 16 04/29/19 16:42 Respiratory Effort Non-Labored 04/29/19 16:48 Blood Pressure 119/73 04/29/19 16:42 Blood Pressure Position Sitting 04/29/19 16:42 Pulse Oximetry 98 04/29/19 16:42 Oxygen Delivery Method Room Air 04/29/19 16:42 Oxygen Flow Rate 0 04/29/19 16:42 Pain Level 8 04/29/19 16:42 Lab/Test Results Lab/Test Results: 04/29/19 16:46 Nasopharynx Influenza Types A,B Antigen - Pending
[2019-04-29] MEDS: Acetaminophen 500 MG TAB 1000 MG PO (17:20)
[2019-04-29 18:23] VITALS: RESP 16
== END 2019-04-29 17:57 | disposition home or self-care (01) ==
PROVIDERS: Emergency Provider Physician Assistant; PCP Physician Assistant Medical
DX: J11.1 Influenza due to unidentified influenza virus with other respiratory manifestations (principal)
CPT/HCPCS: 87449; 99283

== ENCOUNTER 2019-08-08 15:49 | Outpatient (REF) | payer MEDICAID, SELFPAY ==
[2019-08-08 19:41] LABS: Abs Immature Grans 0.01 k/cumm (0.0-0.09); Absolute Basophil Count 0.02 k/cumm (0.0-0.2); Absolute Eosinophil Count 0.15 k/cumm (0.0-0.7); Absolute Lymphocyte Count 2.53 k/cumm (1.2-3.4); Absolute Monocyte Count 0.62 k/cumm (0.11-0.7); Absolute Neutrophil Count 3.41 k/cumm (1.2-6.7); Basophils % 0.3; Eosinophils % 2.2; HCT 42.9 % (36.0-46.0); HGB 14.6 g/dL (12.0-15.5); Immature Grans % 0.1 %; Lymphocytes % 37.5; Mean Corpuscular Hemoglobin 29.4 pg (27.0-33.0); Mean Corpuscular Volume 86.5 fL (80-95); Mean Platelet Volume 11.8 fL (8.0-11.0); Monocytes % 9.2; Neutrophils % 50.7; Platelet Count 205 x1000/uL (130-400); RBC 4.96 m/cumm (4.00-5.20); White Blood Cell Count 6.74 k/cumm (4.4-10.8)
[2019-08-08 20:12] LABS: ALT 81 U/L (14-59); AST 39 U/L (15-37); Albumin 4.6 g/dL (3.4-5.0); Alkaline Phosphatase 55 U/L (46-116); Amylase 34 U/L (25-115); Anion Gap 7.6 mmol/L (3-11); BUN 10 mg/dL (7-18); Bilirubin, Total 0.3 mg/dL (0.2-1.0); CO2 26.4 mmol/L (21.0-32.0); CREATININE 0.63 mg/dL (0.55-1.02); Calcium 9.8 mg/dL (8.5-10.1); Chloride 102 mmol/L (98-107); Glucose 97 mg/dL (74-106); Lipase 53 U/L (73-393); Potassium 4.4 mmol/L (3.5-5.1); Sodium 136 mmol/L (136-145); TSH 5.16 uIU/mL (0.36-3.74); Total Protein 7.5 g/dL (6.4-8.2)
[2019-08-10 15:02] LABS: Chlamydia Result Negative (Negative); GC Result Negative (Negative)
== END 2019-08-08 16:09 ==
LOC: NCHCN 15:49
PROVIDERS: PCP Physician Assistant Medical; Visit Provider Physician Assistant Medical
DX: R11.2 Nausea with vomiting, unspecified (principal); E03.9 Hypothyroidism, unspecified; Z11.3 Encounter for screening for infections with a predominantly sexual mode of transmission; R10.2 Pelvic and perineal pain
CPT/HCPCS: 80053; 82784; 83516; 83690; 87491; 87591; 82150; 84443; 85025; 87086; 87480; 87510; 87660

== ENCOUNTER 2019-08-10 01:52 | Outpatient (CLI) | payer MEDICAID, SELFPAY ==
--- NOTE | 2019-08-10 | DI.US_ITS ---
EXAM: US ABD PELV TRANSVAG NON-OB CLINICAL HISTORY: NAUSEA,VOMITING,R11.2,PELVIC PAIN,R10.2 TECHNIQUE: Ultrasound of the abdomen, pelvic, both abdmonal and tranvaginal was performed using sta ndard protocol. COMPARISON: US OB US 1ST TRI TRANSABD from 06/04/2011 FINDINGS: LIVER: The liver is enlarged, measuring 18.9 cm in length and shows marked increased echogenicity and decreased through transmission, consistent with severe hepatic steatosis. The posterior portions o f the liver are not well seen. No gross mass is visible. GALLBLADDER: No evidence of cholelithiasis. No evidence of wall thickening. No pericholecystic fluid identified. KIDNEYS: Kidneys are symmetric in size. No evidence of renal calculi. No evidence of hydronephrosis. No renal mass or cyst identified. BILIARY SYSTEM: Common bile duct measures 4 millimeters. No intrahepatic biliary ductal dilation. GUZMÁN'S SIGN: Negative. PANCREAS: Normal where visualized. SPLEEN: Not enlarged. ABDOMINAL AORTA AND IVC: Visualized portions normal caliber. ASCITES: None seen. UTERUS: Position: Anteverted. Size: 9.3 x 4.4 x 6.2 cm Endometrium: 7 millimeters. Normal for patient's menstrual status. Myometrium: Unremarkable. Cervix: Unremarkable. 3 millimeter nabothian cyst. OVARIES: Right: 3.6 x 2.2 x 2.9 cm Cyst or mass: None. Left: 3.1 x 2.7 x 2.8 cm Cyst or mass: None. DOPPLER: Color: Symmetric and uniform flow to both ovaries. No hyperemia. Duplex: Normal ovarian arterial waveforms visualized. CUL-DE-SAC: Free fluid: None. The bladder is unremarkable as visualized. The right lower quadrant was also scanned. The appendix was not visualized. IMPRESSION: 1. Enlarged liver with severe hepatic steatosis. Normal gallbladder.. 2. Normal-appearing uterus with endometrial stripe within normal limits. 3. Unremarkable bilateral ovaries. DATA REPOSITORY:
== END 2019-08-10 02:12 ==
PROVIDERS: PCP Physician Assistant Medical; Visit Provider Physician Assistant Medical
DX: R10.2 Pelvic and perineal pain (principal); R11.2 Nausea with vomiting, unspecified; R16.0 Hepatomegaly, not elsewhere classified; K76.0 Fatty (change of) liver, not elsewhere classified
CPT/HCPCS: 76700; 76830; 76856

== ENCOUNTER 2019-08-22 03:37 | Outpatient (CLI) | payer MEDICAID, SELFPAY ==
[2019-08-22 16:14] LABS: GGT 84 U/L (5-55)
[2019-08-23 10:50] LABS: Hepatitis A Antibody IgM Negative (Negative); Hepatitis B Core Antibody Negative (Negative); Hepatitis B surface Ag Negative (Negative); Hepatitis C Ab w Rflx HCV PCR Negative (Negative)
[2019-08-23 13:05] LABS: IgA 212 mg/dL (85-499); Tissue Transglutaminase IgA <1.2 U/mL (<4.0)
== END 2019-08-22 03:57 ==
PROVIDERS: PCP Physician Assistant Medical; Visit Provider Physician Assistant Medical
DX: R79.89 Other specified abnormal findings of blood chemistry (principal); R11.2 Nausea with vomiting, unspecified
CPT/HCPCS: 36415; 82784; 83516; 86704; 86709; 86803; 87340; 82977

== ENCOUNTER 2020-01-09 19:55 | Outpatient (REF) | payer OTHER, SELFPAY ==
[2020-01-09 19:14] LABS: ALT 62 U/L (14-59); AST 30 U/L (15-37); Albumin 4.3 g/dL (3.4-5.0); Alkaline Phosphatase 59 U/L (46-116); Bilirubin, Direct 0.11 mg/dL (0.00-0.20); Bilirubin, Total 0.3 mg/dL (0.2-1.0); TSH 2.41 uIU/mL (0.36-3.74); Total Protein 7.1 g/dL (6.4-8.2)
== END 2020-01-09 20:15 ==
LOC: NCHCN 19:55
PROVIDERS: PCP Physician Assistant Medical; Visit Provider Physician Assistant Medical
DX: E03.9 Hypothyroidism, unspecified (principal); R79.89 Other specified abnormal findings of blood chemistry
CPT/HCPCS: 80076; 84443

== ENCOUNTER 2020-07-10 11:21 | Outpatient (REF) | payer OTHER, SELFPAY ==
[2020-07-10 15:45] LABS: Hemoglobin A1C 5.1 % (<5.7)
[2020-07-10 16:09] LABS: ALT 68 U/L (14-59); AST 31 U/L (15-37); Albumin 4.5 g/dL (3.4-5.0); Alkaline Phosphatase 71 U/L (46-116); Bilirubin, Total 0.3 mg/dL (0.2-1.0); Calculated LDL 160 mg/dL (<100); Cholesterol 262 mg/dL (<200); HDL Cholesterol 33 mg/dL (40-60); TSH (W/Ref FT4) 4.03 uIU/mL (0.36-3.74); Total Protein 7.4 g/dL (6.4-8.2); Triglyceride 348 mg/dL (<150)
[2020-07-10 16:26] LABS: Bilirubin, Direct 0.1 mg/dL (0.0-0.2); FREE T4 1.04 ng/dL (0.76-1.46)
== END 2020-07-10 11:22 | disposition home or self-care (01) ==
LOC: NCHCN 11:21
PROVIDERS: PCP Physician Assistant Medical; Visit Provider Physician Assistant Medical
DX: Z00.00 Encounter for general adult medical examination without abnormal findings (principal); Z13.1 Encounter for screening for diabetes mellitus; Z13.220 Encounter for screening for lipoid disorders; R79.89 Other specified abnormal findings of blood chemistry
CPT/HCPCS: 80061; 80076; 83036; 84439; 84443

== ENCOUNTER 2020-08-16 11:17 | Emergency (ER) | payer OTHER, SELFPAY ==
[2020-08-16 11:35] VITALS: BP 134/84; PULSE 95; RESP 18; TEMP 36.7; O2SAT 95
--- NOTE | 2020-08-16 11:45 | DI.US_ITS ---
Exam(s) US ABDOMEN LIMITED EXAM: US ABDOMEN LIMITED CLINICAL HISTORY: ruq pain TECHNIQUE: Ultrasound abdomen performed using standard protocol. COMPARISON: No exams were available for comparison FINDINGS: ABDOMINAL AORTA AND IVC: Visualized portions normal caliber. PANCREAS: Normal where visualized. LIVER: Fatty liver. Hepatopedal flow in the Portal Vein. Liver measures 19.6 cm in length. GALLBLADDER: No evidence of cholelithiasis. No evidence of wall thickening. No pericholecystic fluid identified. BILIARY SYSTEM: Common bile duct measures < 7 mm. No intrahepatic biliary ductal dilation. GUZMÁN'S SIGN: Negative. Right kidney: Unremarkable. No evidence of renal calculi. No evidence of hydronephrosis. No renal ma ss or cyst identified. ASCITES: None seen. IMPRESSION: Hepatomegaly and hepatic steatosis. DATA REPOSITORY:
--- NOTE | 2020-08-16 11:52 | ED.GENADUL_ITS ---
Discharge Plan Disposition Patient Disposition: HOME Condition: Good Discharge Details Clinical Impression: Nausea & vomiting Primary Care Provider: Awilda Martin ED Provider: Augusta Felix Home Meds and New Rx's Prescriptions: No Action mupirocin 2 % ointment 1 applic topical TID Qty: 15 RF: 0 lamotrigine 200 mg tablet 400 mg PO BID RF: 0 omeprazole 40 mg capsule,delayed release(DR/EC) 40 mg PO DAILY RF: 0 levothyroxine [Synthroid] 50 mcg tablet 100 mcg PO DAILY RF: 0 escitalopram oxalate [Lexapro] 10 mg tablet 15 mg PO DAILY RF: 0 albuterol sulfate 1.25 mg/3 mL solution for nebulization 2.5 mg IH Q4H PRN (Reason: shortness of breath or wheezing) Qty: 75 RF: 0 ondansetron HCl 8 mg tablet 4 mg PO PRN PRNRF: 0 pantoprazole 40 mg tablet,delayed release (DR/EC) 40 mg PO DAILY RF: 0 lorazepam 1 MG tablet 1 mg PO PRN PRNRF: 0 albuterol sulfate [Proventil HFA] 90 mcg/actuation HFA aerosol inhaler 2 puff IH Q6H PRN (Reason: shortness of breath or wheezing) Qty: 8.5 RF: 0 Discharge Instructions Instructions: Acute Nausea and Vomiting (ED) Additional Instructions: Recommend bland diet, shakes, soft foods, stay away from caffeine, tomato, citrus Recommend PCP at your scheduled appointment Zofran as needed for nausea and vomiting You may add Pepcid to your regimen of Protonix Please return earlier should you have new or worsening complaints including blood in vomitus or stool, chest pain, shortness of breath, worsening abdominal pain Recommendation to follow-up with gastroenterology regarding the fatty liver results on your ultrasound at the discretion of your PCP Discharge Data Discharge Date/Time-TO BE ENTERED AT DEPARTURE: 08/16/20 13:26 Medical Decision Making Fatty liver and hepatomegaly on ultrasound, will need GI referral, referred back to primary care physician, she has an appointment next week reportedly In the interim we will attempt adding Pepcid to her Protonix Has Zofran at home Able to tolerate p.o. in the emergency room Feels comfortable with discharge home Diagnostic labs are reassuring, mild elevation of AST, actually slightly lower than previous Neel Denies alcohol consumption Diet changes suggested Medication for EKG, no chest pain or shortness of breath, smoking cessation discussed Asymptomatic unless eating or drinking reportedly low suspicion for CAD Return precautions discussed stable Differential Diagnosis Differential Diagnosis: Peptic ulcer disease, GERD, gastritis, cholecystitis Medical Records Medical records reviewed: Yes I reviewed the patient's medical records. Lab Data Lab results reviewed: Yes I reviewed the patient's lab results. HPI General Mode of arrival: ambulatory . Date/Time Provider Initiated Documentation: 08/16/20 11:29 . Limitations to Documentation: no limitations . Information obtained by: patient . HPI Narrative: This 30-year-old female presents with right upper quadrant abdominal pain and vomiting her meals for the past 2 weeks. She last vomited this morning. She states that she had a month always precipitates emesis. She denies any chest pain or shortness of breath. She denies dizziness or weakness. She denies any chance of . She denies any blood in vomitus or stool. She denies any associated diarrhea. She has recently changed her Lamictal to 400 mg in the morning, however this was several months ago and she felt fine until 2 days prior to arrival. She also states she been slightly more tired. She denies any urinary complaints or history of diabetes. She denies any fever or chills. denies or risk of stds. She denies known sick contacts. Related Data Home Medications Medication Instructions Recorded Confirmed lorazepam 1 mg PO PRN PRN 11/05/16 08/16/20 albuterol sulfate 2.5 mg IH Q4H PRN #75 ml 12/21/17 06/10/20 albuterol sulfate [Proventil HFA] 2 puff IH Q6H PRN #8.5 gm 04/29/19 06/10/20 escitalopram oxalate 10 mg tablet 15 mg PO DAILY tab 06/10/20 06/10/20 lamotrigine 200 mg tablet 400 mg PO BID tab 06/10/20 08/16/20 levothyroxine 50 mcg tablet 100 mcg PO DAILY tab-cap 06/10/20 08/16/20 mupirocin 2 % topical ointment 1 applic TOPICAL TID #15 g 06/10/20 06/10/20 omeprazole 40 mg capsule,delayed 40 mg PO DAILY 06/10/20 08/16/20 release ondansetron HCl 4 mg PO PRN PRN 08/16/20 08/16/20 pantoprazole 40 mg PO DAILY 08/16/20 08/16/20 Previous Rx's Medication Instructions Recorded albuterol sulfate 2.5 mg IH Q4H PRN #75 ml 12/21/17 albuterol sulfate [Proventil HFA] 2 puff IH Q6H PRN #8.5 gm 04/29/19 mupirocin 2 % topical ointment 1 applic TOPICAL TID #15 g 06/10/20 Allergies Allergy/AdvReac Type Severity Reaction Status Date / Time trazodone AdvReac Severe Headache Verified 08/16/20 11:38 General Stated Complaint: Nausea/Vomit/Diar RE: 3 Review of Systems Narrative: Review of systems negative x7 aside from where indicated in HPI PFSH Surgical History Cervical Procedure LEEP at 17yo Ligation of fallopian tube Social History Smoking/Tobacco Use Status: Current every day Tobacco Type: cigarettes Quit status: not considering quitting Counseling given: support program Smoking risk assessment performed?: Yes Alcohol Intake: current Alcohol Intake frequency: holidays/special occasions only Drug use: Rarely Substance use type: does not use Do you feel safe at home: Yes Do you feel safe in your relationship?: Yes Exam Const General: cooperative, comfortable and no acute distress HENMT Mouth: No moist mucous membranes abnormal Resp Effort & Inspection: normal respiratory effort Cardio Rate: regular rate GI Other: Right upper quadrant tenderness on exam, no CVA tenderness Skin Other: No pallor Neuro General: patient alert and patient oriented x3 Course Vital Signs Vital signs: Vital Signs Temperature 36.7 C 08/16/20 11:35 Pulse 95 H 08/16/20 11:35 Respiratory Rate 18 08/16/20 11:35 Blood Pressure 134/84 08/16/20 11:35 Pulse Oximetry 95 08/16/20 11:35 Temperature 36.7 C 08/16/20 11:35 Temperature Source Temporal Artery Scan 08/16/20 11:35 Pulse 95 H 08/16/20 11:35 Respiratory Rate 18 08/16/20 11:35 Respiratory Effort Non-Labored 08/16/20 11:41 Blood Pressure 134/84 08/16/20 11:35 Blood Pressure Position Sitting 08/16/20 11:35 Pulse Oximetry 95 08/16/20 11:35 Oxygen Delivery Method Room Air 08/16/20 11:35 Oxygen Flow Rate 0 08/16/20 11:35
[2020-08-16 12:12] LABS: Abs Immature Grans 0.03 10^3/uL (0.0-0.06); Absolute Basophil Count 0.05 10^3/uL (0.0-0.2); Absolute Eosinophil Count 0.13 10^3/uL (0.0-0.7); Absolute Lymphocyte Count 2.83 10^3/uL (1.2-3.4); Absolute Monocyte Count 0.88 10^3/uL (0.1-0.8); Absolute Neutrophil Count 5.61 10^3/uL (1.2-6.7); Basophils % 0.5; Eosinophils % 1.4; HCT 41.3 % (36.0-46.0); HGB 14.2 g/dL (11.2-15.7); Immature Grans % 0.3; Lymphocytes % 29.7; MCH 29.7 pg (27.0-33.0); MCHC 34.4 % (32.0-36.0); MCV 86.4 fL (80-95); Monocytes % 9.2; Neutrophils % 58.9; Nucleated RBC 0 %; Platelet Count 223 10^3/uL (130-400); RBC 4.78 10^6/uL (3.93-5.22); RDW 12.3 % (11.7-14.6); RDW-SD 38.5 fL; WBC 9.53 10^3/uL (4.4-10.8)
[2020-08-16] MEDS: Ondansetron 4 MG/2 ML VIAL IVP (12:14)
[2020-08-16] MEDS: Normal Saline 1,000 ML 1000 ML IV (12:14)
[2020-08-16 12:24] LABS: ALT 63 U/L (14-59); AST 35 U/L (15-37); Albumin 4.4 g/dL (3.4-5.0); Alkaline Phosphatase 65 U/L (46-116); Anion Gap 8.5 mmol/L (3-11); BUN 11 mg/dL (7-18); Bilirubin, Total 0.4 mg/dL (0.2-1.0); CO2 27.5 mmol/L (21.0-32.0); CREATININE 0.8 mg/dL (0.55-1.02); Chloride 105 mmol/L (98-107); Glucose 98 mg/dL (74-106); Lipase 45 U/L (73-393); Potassium 4.1 mmol/L (3.5-5.1); Sodium 141 mmol/L (136-145); Total Protein 7.5 g/dL (6.4-8.2)
[2020-08-16 12:28] LABS: Calcium 9.3 mg/dL (8.5-10.1)
== END 2020-08-16 13:26 | disposition home or self-care (01) ==
PROVIDERS: Emergency Provider Physician Assistant; PCP Physician Assistant Medical
DX: R11.2 Nausea with vomiting, unspecified (principal); R10.11 Right upper quadrant pain
CPT/HCPCS: 36415; 80053; 81025; 83690; 96361; 96374; 99284; 76705; 85025; J2405

== ENCOUNTER 2020-09-03 12:51 | Emergency (ER) | payer OTHER, SELFPAY ==
--- NOTE | 2020-09-03 12:54 | ED.GENADUL_ITS ---
Discharge Plan Disposition Patient Disposition: HOME Condition: Stable Discharge Details Clinical Impression: Cough Primary Care Provider: Awilda Martin ED Provider: Susanna Lyons Home Meds and New Rx's Prescriptions: New albuterol sulfate 90 mcg/actuation aerosol powdr breath activated 2 inh IH Q6H PRN (Reason: shortness of breath or wheezing) Qty: 1 RF: 0 benzonatate [Tessalon Perles] 100 mg capsule 100 mg PO TID PRN (Reason: cough) Qty: 14 RF: 0 amoxicillin-pot clavulanate [Augmentin] 875-125 mg tablet 1 tab PO BID 7 Days Qty: 14 RF: 0 No Action mupirocin 2 % ointment 1 applic topical TID Qty: 15 RF: 0 lamotrigine 200 mg tablet 400 mg PO BID RF: 0 omeprazole 40 mg capsule,delayed release(DR/EC) 80 mg PO DAILY RF: 0 levothyroxine [Synthroid] 50 mcg tablet 100 mcg PO DAILY RF: 0 escitalopram oxalate [Lexapro] 10 mg tablet 15 mg PO DAILY RF: 0 albuterol sulfate 1.25 mg/3 mL solution for nebulization 2.5 mg IH Q4H PRN (Reason: shortness of breath or wheezing) Qty: 75 RF: 0 ondansetron HCl 8 mg tablet 4 mg PO PRN PRNRF: 0 pantoprazole 40 mg tablet,delayed release (DR/EC) 80 mg PO DAILY RF: 0 lorazepam 1 MG tablet 1 mg PO PRN PRNRF: 0 albuterol sulfate [Proventil HFA] 90 mcg/actuation HFA aerosol inhaler 2 puff IH Q6H PRN (Reason: shortness of breath or wheezing) Qty: 8.5 RF: 0 Discharge Instructions Instructions: Acute Cough (ED) Additional Instructions: Drink plenty of fluids and get plenty of rest. Use the albuterol inhaler and take the cough medication as needed and directed for coughing, wheezing or shortness of breath. Your prescriptions has been sent electronically to your pharmacy. Call the pharmacy to make sure your prescriptions are ready before pickup. Take the prescriptions as directed. If you have no relief in symptoms in the next 2 to 3 days, you can start the antibiotics. Follow-up with your primary care doctor in 1 week. Return to the emergency department with any worsening or new concerning symptoms. Stand Alone Forms: Work Release Discharge Data Discharge Date/Time-TO BE ENTERED AT DEPARTURE: 09/03/20 13:38 Discharge Physician: Susanna Lyons Medical Decision Making 30-year-old female with a history of asthma and chronic tobacco smoker who presents for dry cough for the past few days. Sent here from her worksite after local provider there noted wheezing on exam. Patient appears comfortable and nontoxic. She is speaking in full sentences. Normal ENT exam. Lungs clear bilaterally without wheezing or rhonchi. Discussed with patient that her symptoms could be due to a lower respiratory tract infection or developing bronchitis. Discussed that her presentation does not appear consistent with pneumonia at this time but that we could obtain a chest x-ray but patient feels that this is not necessary at this time. She is fully vaccinated and presentation does not appear consistent with coronavirus. We will treat for likely viral illness at this time with recommendations for supportive care and will refill her albuterol inhaler and give a prescription for Tessalon Perles. She is a smoker, will also send a prescription for antibiotics electronically to her pharmacy. Advised to follow up with the primary care doctor for re-evaluation. Usual and customary return precautions given prior to discharge. Medical Records Medical records reviewed: Yes I reviewed the patient's medical records. HPI General Mode of arrival: ambulatory . Date/Time Provider Initiated Documentation: 09/03/20 12:52 . Limitations to Documentation: no limitations . Information obtained by: patient . HPI Narrative: Patient is a 30-year-old female with a history of asthma, tubal ligation presents to the ED with complaint of dry cough with chest congestion for the past few days. 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 Patient admits to sore throat that occurs only with coughing. She has taken ibuprofen but no other medications for symptoms. She denies any fever, body aches, chills, significant shortness of breath, known exposure to coronavirus. Patient is fully vaccinated. Related Data Home Medications Medication Instructions Recorded Confirmed lorazepam 1 mg PO PRN PRN 11/05/16 08/16/20 albuterol sulfate 2.5 mg IH Q4H PRN #75 ml 12/21/17 06/10/20 albuterol sulfate [Proventil HFA] 2 puff IH Q6H PRN #8.5 gm 04/29/19 06/10/20 escitalopram oxalate 10 mg tablet 15 mg PO DAILY tab 06/10/20 09/03/20 lamotrigine 200 mg tablet 400 mg PO BID tab 06/10/20 09/03/20 levothyroxine 50 mcg tablet 100 mcg PO DAILY tab-cap 06/10/20 09/03/20 mupirocin 2 % topical ointment 1 applic TOPICAL TID #15 g 06/10/20 06/10/20 omeprazole 40 mg capsule,delayed 80 mg PO DAILY 06/10/20 09/03/20 release ondansetron HCl 4 mg PO PRN PRN 08/16/20 08/16/20 pantoprazole 80 mg PO DAILY 08/16/20 09/03/20 albuterol sulfate 2 inh IH Q6H PRN #1 each 09/03/20 amoxicillin-pot clavulanate 1 tab PO BID 7 Days #14 tab 09/03/20 [Augmentin] benzonatate [Tessalon Perles] 100 mg PO TID PRN #14 cap 09/03/20 Previous Rx's Medication Instructions Recorded albuterol sulfate 2.5 mg IH Q4H PRN #75 ml 12/21/17 albuterol sulfate [Proventil HFA] 2 puff IH Q6H PRN #8.5 gm 04/29/19 mupirocin 2 % topical ointment 1 applic TOPICAL TID #15 g 06/10/20 albuterol sulfate 2 inh IH Q6H PRN #1 each 09/03/20 amoxicillin-pot clavulanate 1 tab PO BID 7 Days #14 tab 09/03/20 [Augmentin] benzonatate [Tessalon Perles] 100 mg PO TID PRN #14 cap 09/03/20 Allergies Allergy/AdvReac Type Severity Reaction Status Date / Time trazodone AdvReac Severe Headache Verified 09/03/20 13:00 General RE: 3 Review of Systems All systems reviewed & are unremarkable except as noted in HPI and below Constitutional Constitutional: Reports as per HPI, Denies chills and Denies fever(s) Eyes Eyes: Denies blurry vision ENT Ears, Nose, Mouth, and Throat: Denies dizziness, Denies sore throat and Denies throat swelling Cardiovascular Cardiovascular: Denies chest pain and Denies dyspnea Respiratory Respiratory: Reports cough and Denies dyspnea Gastrointestinal Gastrointestinal: Denies abdominal pain, Denies diarrhea and Denies vomiting Genitourinary Genitourinary: Denies hematuria and Denies dysuria Musculoskeletal Musculoskeletal: Denies back pain and Denies numbness Integumentary/Breasts Skin/Breast: Denies lesions and Denies rash Neurologic Neurologic: Denies dizziness, Denies localized weakness and Denies numbness Allergic/Immunologic Allergic/Immunologic: Denies throat swelling [facility] Medical History (Updated 09/03/20 @ 13:24 by Susanna Lyons DO) Asthma Fatty liver Surgical History Cervical Procedure LEEP at 17yo Ligation of fallopian tube Social History Smoking/Tobacco Use Status: Current every day Tobacco Type: cigarettes Quit status: not considering quitting Counseling given: support program Smoking risk assessment performed?: Yes Alcohol Intake: current Alcohol Intake frequency: holidays/special occasions only Drug use: Rarely Substance use type: does not use Do you feel safe at home: Yes Do you feel safe in your relationship?: Yes Exam Const General: cooperative and no acute distress HENMT Head: normal to inspection Ears: hearing grossly normal bilaterally, external ears normal and TM's normal bilaterally Face and sinus: normal facial exam Mouth: oral mucosae normal Throat: posterior oropharynx normal Eyes General: appearance normal, both eyes and all related structures Pupils: PERRL EOM: EOM intact bilaterally Neck Neck: normal visual inspection and No submandibular swelling Lymphatic: no lymphadenopathy noted Chest Chest: normal inspection of the chest and no tenderness Resp Effort & Inspection: normal respiratory effort and able to speak in complete sentences Auscultation: clear to auscultation bilaterally Cardio Rate: regular rate Rhythm: regular rhythm GI Inspection: normal to inspection Palpation: soft, not firm, not rigid and nontender Auscultation: normal bowel sounds Neuro General: patient alert, patient awake and patient oriented x3 Cognition: normal cognition Speech: speech normal Motor: muscle tone normal throughout Sensory Exam: no sensory deficits noted Extrem General: normal to inspection, full ROM, capillary refill normal, no calf tenderness bilaterally and no edema Psych Appearance: grossly normal Mental Status: mental status grossly normal Speech and Movement: speech and movement normal Affect: normal affect
[2020-09-03 12:56] VITALS: BP 119/72; PULSE 88; RESP 14; TEMP 36.3; O2SAT 98
[2020-09-03 13:24] VITALS: BP 119/72; PULSE 88; RESP 14; TEMP 36.3; O2SAT 98
== END 2020-09-03 13:38 | disposition home or self-care (01) ==
PROVIDERS: Emergency Provider Physician Assistant; PCP Physician Assistant Medical
DX: R05 Cough (principal); R09.89 Other specified symptoms and signs involving the circulatory and respiratory systems; F17.210 Nicotine dependence, cigarettes, uncomplicated
CPT/HCPCS: 99283

== ENCOUNTER 2020-09-06 11:56 | Outpatient (CLI) | payer OTHER, SELFPAY ==
--- NOTE | 2020-09-06 10:30 | DI.RAD_ITS ---
Exam(s) XR CHEST 2V PA LATERAL EXAM: XR CHEST 2V PA LATERAL CLINICAL HISTORY: asthma exacerbation, J45.901 TECHNIQUE: 2D digital imaging was performed. COMPARISON: CR XR CHEST 2V PA LATERAL from 04/26/2019 FINDINGS: MEDIASTINUM: Normal. HEART: Normal. PULMONARY VASCULATURE: Normal. LUNGS: Clear. PLEURAL SPACE: No pleural effusion or pneumothorax. BONE:Normal. IMPRESSION: Negative chest x-ray. DATA REPOSITORY: RADIATION DOSE DELIVERED:
== END 2020-09-06 12:16 ==
PROVIDERS: PCP Physician Assistant Medical; Visit Provider Nurse Practitioner Family
DX: J45.901 Unspecified asthma with (acute) exacerbation (principal)
CPT/HCPCS: 71046

== ENCOUNTER 2020-09-18 14:44 | Outpatient (REF) | payer OTHER, SELFPAY ==
[2020-09-18 20:00] LABS: ALT 52 U/L (14-59); AST 18 U/L (15-37); Albumin 4.3 g/dL (3.4-5.0); Alkaline Phosphatase 73 U/L (46-116); Anion Gap 9.4 mmol/L (3-11); BUN 8 mg/dL (7-18); Bilirubin, Total 0.4 mg/dL (0.2-1.0); CO2 27.6 mmol/L (21.0-32.0); CREATININE 0.7 mg/dL (0.55-1.02); Calcium 8.9 mg/dL (8.5-10.1); Chloride 104 mmol/L (98-107); Glucose 80 mg/dL (74-106); Potassium 4.1 mmol/L (3.5-5.1); Sodium 141 mmol/L (136-145); TSH 1.71 uIU/mL (0.36-3.74)
== END 2020-09-18 14:45 | disposition home or self-care (01) ==
LOC: NCHCN 14:44
PROVIDERS: PCP Physician Assistant Medical; Visit Provider Physician Assistant Medical
DX: K76.0 Fatty (change of) liver, not elsewhere classified (principal)
CPT/HCPCS: 80053; 84443

== ENCOUNTER 2020-12-11 21:10 | Outpatient (REF) | payer OTHER, SELFPAY ==
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
--- OUTSIDE RECORDS SUMMARY | 2020-12-11 21:12 | XMS_ITS | Encounter Summary ---
:1990 Author Care Team Providers Name Role Phone Awilda Martin Primary Care Provider [phone] [facility] Medical Records OTHER [phone] Reason for Visit None recorded. Assessment and Plan 1. Obstructive sleep apnea syndr ome ALLAN with an AHI of 36.5/hr. I discussed treatment options to include oral appliance, ENT surgery and CPAP therapy and the advantages and disadvantages of each. CPAP is recommended given the se verity of ALLAN and hypoxemia. CPAP 6-16cm is ordered. I discussed different mask options and the importance of finding the mask that will work for her within the first 30 days. I discussed how to adjust humidity for dryness/congestion and that the goal will be to use nightly for her total sleep time. I covered insurance compliance requirements and the DME's mask exchange policy. She will have a titrati on study for fine tuning of therapy and to ensure adequate oxygenation on CPAP therapy. She is made aware that our titration studies are using recalled PAP machines. I discussed the potential risks of h aving a titration study with a recalled machine and she reports understanding. She is willing to proceed with a study and is aware she will need to sign a waiver prior to having the study. I will see he r back between 31-90 days after starting CPAP and she is encouraged to call me sooner if she is having any difficulties tolerating CPAP. Drowsy driving precautions were reviewed. I provided greater than 30 minutes in e care of this patient, more than half the time was spent in [id number] counseling. ? CPAP machine ? CPAP titration study* Discussion Note: None recorded.Patient educational handouts: No information available. Plan of Care Reminders Provider Appointments Office 03/19/2021 Manuel Jerome, 1:30PM HEEL BUILDER MACHINE Lab None ? ? recorded. Referral None ? ? recorded. Procedures None ? ? recorded. Surgeries None ? ? recorded. Imaging None ? ? recorded. Medications Name Start Date ? ? acamprosate 333 mg tablet,delayed release ? cephalexin 500 mg capsule ? clonidine HCl 0.1 mg tablet ? escitalopram 10 mg tablet ? Take 1.5 tablets every day by oral route. lamotrigine 200 mg tablet ? Take 1 tablet twice a day by oral route. lamotrigine 25 mg tablet ? levothyroxine 100 mcg tablet ? levothyroxine 75 mcg tablet ? lorazepam 0.5 mg tablet ? lorazepam 1 mg tablet ? Take 1 tablet as needed by oral route as directed. nicotine 21 mg/24 hr daily transdermal patch ? oseltamivir 75 mg capsule ? Protonix 40 mg tablet,delayed release ? Take 1 tablet every day by oral route. Medications Administered None recorded. Vitals Height Weight BMI Blood Pressure 5 ft 7 in 204.5 lbs 32 kg/m2 127/75 mm[Hg] Results Lab Results None recorded. Allergies Code Code System Name Reaction Severity Onset 483429 RxNorm Imitrex ? ? ? 8638 RxNorm Prednisolone ? ? ? 21399 RxNorm Trazodone ? ? ? Wellbutrin ? ? ? Problems Name Status Onset Date Source ? [...] Syndrome Active ? ? Procedures None recorded. Vaccine List None recorded. Social History Tobacco Smoking Status Heavy Tobacco Smoker (1/2 pack per a day) What is your level of alcohol None Notes: rec. quit 2 consumption? weeks Live alone or with others? with others Are you currently employed? Y Do you have any pets? Y Notes: dog Are you blind or do you have Y Notes: w ears glasses difficulty seeing? What is your code status? 0 Are you deaf or do you have Y Notes: ne eds ROQUE serious difficulty hearing? Hard of hearing or deaf in one N or both ears? What is your level of caffeine Occasional Notes: 1-2 c coffee a consumption? 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 Are you deaf or do you Yes have serious difficulty hearing? ? Past Encounters 12/04/2020 Obstructive Sleep Apnea Syndrome Sugey Jerome, HEEL BUILDER MACHINE: [address] [place] [phone], Ph. History of Present Illness Note: <p>Jovita Pop has a visit for PSG results.</p><p>
</p><p>Jovita was seen by me on 08/28/20. She has a medical history to include Bipolar, anxiety, depression, obesity, alcohol abuse (sober since 08/14/20), hypothyroidism and post herpetic neuralgia. Labs 07/10/20 TSH 4.03, free T4 wnl, liver panel ALT 68. A1C 5.1%.</p><p>She noted symptoms of loud snoring, witnessed apneas, excessive daytime sleepiness (ESS 16) and nocturia.</p><p>P olysomnogram was completed on </p>{{DATE 10/05/2020}} (BMI 33.04) and I reviewed the results with {{him her*}} in detail today. Sleep efficiency was {{92# 80}}%, AHI {{36.5# NUMBER}}/hr, RDI {{44.4# NUMBER}}/hr, REM AHI {{50.8# NUMBER}}/hr, REM RDI {{55.1# NUMBER}}/hr, supine AHI {{57# NUMBER}}/hr, right lateral AHI {{61# NUMBER}}/hr, left lateral AHI {{4# NUMBER}}/hr, sp02 alvin {{79# NUMBER}}%, {{84# NUMBER}} minutes were spent at a saturation <88%, arousal index {{24# NUMBER}}/hr, PLMi {{12.3# NUMBER}}/hr, PLM arousal index {{0.3# NUMBER}}/hr. EKG showed {{NSR with rare PAC's# NSR} }.<div>
</div><div>Jovita still has all above symptoms and no new sleep complaints today. She feels her sleep was fairly similar compare to a typical night at home. <p>& lt;/p><p>
</p>{{Patient}}<p></p></div> Review of Systems: ROS as noted in the HPI Review of Systems None recorded. Physical Exam ? Notes: General: A&O, well groomed { {over weight * obese morbidly obese normal weight thin}}.

HEA D: normocephalic & atraumatic.

EYES: non icteric.

LUNGS: CT A all shirley. Good air movement.

CARDIO: RRR without murmur, gallop o r thrill.

NEURO: A&O. Normal gait.

PSYCH: Normal m ood and affect.

CUTANEOUS: no overt lesions or rashes
== END 2020-12-11 21:11 | disposition home or self-care (01) ==
LOC: NCHCN 21:10
PROVIDERS: PCP Physician Assistant Medical; Visit Provider Physician Assistant
DX: L02.415 Cutaneous abscess of right lower limb (principal)
CPT/HCPCS: 87070; 87205

== ENCOUNTER 2021-06-16 05:11 | Outpatient (CLI) | payer OTHER, SELFPAY ==
--- NOTE | 2021-06-16 13:00 | NS.NUTBLAN_ITS ---
Jovita was referred to nutritional counseling for weight management and dietary management of fatty liver disease. 5'5 212 lbs. Has lost 20 lbs in last 6 months- highest weight 238 lbs Has stopped drinking and has cut down on nicotine. 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 High Jett score PMH: sleep apnea with Cpap - does not use Diet recall: cathy morris from [facility], 2 hot dogs, taco salad Exercise: none Session today focused on etiology of liver disease with high intakes of high fructose corn syrup or alcohol intake. Reviewed meal plans that help reduce weight and normalize liver function with emphasis on complex carbs, lean protein and healthy fats. Encouraged using cory to log meals and count carbs, and cory for steps. Goal is to follow a 6438-2735 kcal, 80-100 g carbs, 60-70 g protein, 45-55 g fat with 5000 steps daily. Reviewed importance of using Cpap for weight loss/cortisol levels. May also benefit from a GLPra such as trulicity or ozempic to aid in weight loss/appetite. Goal Weight: 180 lbs- 35 lbs loss in next 6 months Follow up 07/14/21 at 1 pm
== END 2021-06-16 05:12 | disposition home or self-care (01) ==
LOC: DS 05:11
PROVIDERS: PCP Physician Assistant Medical; Visit Provider Dietitian, Registered
DX: E66.8 Other obesity (principal); K76.0 Fatty (change of) liver, not elsewhere classified; Z71.3 Dietary counseling and surveillance
CPT/HCPCS: 97802

== ENCOUNTER 2021-07-14 03:14 | Outpatient (CLI) | payer OTHER, SELFPAY ==
--- OUTSIDE RECORDS SUMMARY | 2021-07-14 03:16 | XMS_ITS ---
:1990 Author Care Team Providers Name Role Phone EDU LYONS Primary Care Provider [phone] [facility] MEDICAL RECORDS OTHER [phone] [facility] OTHER [phone] Allergies Code Code Name Reaction Severity Status Onset System 760839 RxNorm Imitrex ? ? Active ? 8638 RxNorm Prednisolone ? ? Active ? 64254 RxNorm Trazodone ? ? Active ? Wellbutrin ? ? Active ? 3140 RxNorm Prednisone ? ? Deactivated ? Medications Name Status Start Date Stop Date ? ? acamprosate 333 mg tablet,delayed Completed ? 04/18/2021 release amoxicillin 875 mg-potassium Completed ? clavulanate 125 mg tablet aripiprazole 10 mg tablet Completed ? 2020 aripiprazole 5 mg tablet Completed ? 021 TK 1 T PO D benzonatate 100 mg capsule Completed ? 12/04 cephalexin 500 mg capsule Completed ? 2021 clonidine HCl 0.1 mg tablet Completed ? 06/2021 escitalopram 10 mg tablet Active ? Not av ailable escitalopram 20 mg tablet Completed ? 2020 Flovent HFA 220 mcg/actuation aerosol Completed ? 12/04/2020 inhaler lamotrigine 100 mg tablet Completed ? 2020 lamotrigine 200 mg tablet Active ? Not av ailable lamotrigine 25 mg tablet Completed ? 022 levothyroxine 100 mcg tablet Completed ? 06/2021 levothyroxine 75 mcg tablet Completed ? 06/2021 levothyroxine 88 mcg tablet Completed ? 11/14 Take 1 tablet every day by oral route. lorazepam 0.5 mg tablet Completed ? 04/18/19 lorazepam 1 mg tablet Active ? Not availa ble mupirocin 2 % topical ointment Completed ? 0 12/04/2020 nicotine (polacrilex) 2 mg buccal Active ? Not available lozenge nicotine 21 mg/24 hr daily transdermal Completed ? 04/18/2021 patch ondansetron 8 mg disintegrating tablet Completed ? 12/04/2020 Place 1 tablet every 8 hours by translingual route. ondansetron HCl 4 mg tablet Active ? Not available PRN ondansetron HCl 8 mg tablet Completed ? 11/14 oseltamivir 75 mg capsule Completed ? 2021 pantoprazole 40 mg tablet,delayed release Active ? Not available Take 2 tablets every day by oral route. prednisone 20 mg tablet Completed ? 12/05/19 ProAir HFA 90 mcg/actuation aerosol Completed ? 12/04/2020 inhaler zolpidem 5 mg tablet Active ? Not availab le Problems Name Status Onset Date Source ? [...] Results Lab Results None recorded. Past Encounters 04/16/2021 Obstructive Sleep Apnea Syndrome Sugey Jerome AIR DEFENSE ARTILLERY OFFICER: [address] [place] [phone], Ph. 12/04/2020 Obstructive Sleep Apnea Syndrome Sugey Jerome NP: [address] [place] [phone], Ph. 08/28/2020 Snoring Sugey Jerome AIR DEFENSE ARTILLERY OFFICER: [address] [place] [phone], Ph. Social History Tobacco Smoking Status Heavy Tobacco Smoker (1/2 pack per da y) Vaccine List Vaccine Type COVID-19, mRNA, LNP-S, PF, 100 mcg/0.5 m L dose (Moderna) 03/11/2020 04/08/2020 01/15/2021 Plan of Care Reminders Provider Appointments None ? ? recorded. Lab None ? ? recorded. Referral None ? ? recorded. Procedures None ? ? recorded. Surgeries None ? ? recorded. Imaging None ? ? recorded. Vitals 04/16/2021 09:30AM Office 30 Height Weight BMI Blood Pressure 166.37 cm 92.99 kg 33.6 kg/m2 134/65 mm[Hg] 12/04/2020 11:00AM Office 30 Height Weight BMI Blood Pressure 170.18 cm 92.76 kg 32 kg/m2 127/75 mm[Hg] 08/28/2020 12:30PM New Patient 45 Height Weight BMI Blood Pressure 170.18 cm 95.71 kg 33 kg/m2 131/85 mm[Hg]
--- OUTSIDE RECORDS SUMMARY | 2021-07-14 03:16 | XMS_ITS | Encounter Summary ---
:1990 Author Care Team Providers Name Role Phone Awilda Martin Primary Care Provider [phone] [facility] Medical Records OTHER [phone] [facility] OTHER [phone] Reason for Visit None recorded. Assessment and Plan 1. Obstructive sleep apnea syndr ome ALLAN with an AHI of 36.5/hr. Jose Guadalupe nolasco recently started on CPAP 6-16 cm. She has mediocre compliance and an excellent reduction in AHI. She did not show up for her titration study that was scheduled previously and is in the process of sche duling it for hopefully this Wednesday (making sure still approved). SHe unfortunately is removing the CPAP every night in her sleep and most of the time is not awar e of doing this. I suspect it may be bec ause she needs a higher pressure setting. Her median pressure is 10.6 cm and 95 th percentile pressure 14 cm so today I set her CPAP to 10-16 cm. She has had some trouble with leaking and has not change d her cushion so is advised to do so monthly. Additionally I recommended a mask liner from [facility]. She wanted a slightly higher starting pressure so I set ramp to start at 5 cm and she will call if s he wants it even higher. She is encouraged to keep up with the routine maintenance of the machine and to clean and replace parts as indicated.I will see her back in four months. She is asked to call the clinic for any sleep related questions or concerns. I provided greater than 30 minutes in th e care of this patient, more than half the time was spent in [id number] counseling. ? CPAP supplies Discussion Note: None recorded.Patient educational handouts: No information available. Plan of Care Reminders Provider Appointments Office 08/13/2021 Manuel Jerome, 8:00AM MOLD STAMPER Lab None ? ? recorded. Referral None ? ? recorded. Procedures None ? ? recorded. Surgeries None ? ? recorded. Imaging None ? ? recorded. Medications Name Start Date ? ? escitalopram 10 mg tablet ? Take 1.5 tablets every day by oral route. lamotrigine 200 mg tablet ? Take 1 tablet twice a day by oral route. lorazepam 1 mg tablet ? Take 1 tablet as needed by oral route as directed. nicotine (polacrilex) 2 mg buccal lozenge ? ondansetron HCl 4 mg tablet ? PRN pantoprazole 40 mg tablet,delayed release ? Take 2 tablets every day by oral route. zolpidem 5 mg tablet ? take 1-2 PO night of sleep study if needed Medications Administered None recorded. Vitals Height Weight BMI Blood Pressure 5 ft 5.5 in 205 lbs 33.6 kg/m2 134/65 mm[Hg] Results Lab Results None recorded. Allergies Code Code System Name Reaction Severity Onset 623131 RxNorm Imitrex ? ? ? 8638 RxNorm Prednisolone ? ? ? 51589 RxNorm Trazodone ? ? ? Wellbutrin ? [...] ? ? Procedures None recorded. Vaccine List Vaccine Type COVID-19, mRNA, LNP-S, PF, 100 mcg/0.5 m L dose (Moderna) 03/11/2020 04/08/2020 01/15/2021 Social History Tobacco Smoking Status Heavy Tobacco Smoker (1/2 pack per day) What is your level of alcohol [...] is your level of caffeine Occasional Notes: 1c coffee a day consumption? 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 Are you deaf or do you Yes have serious difficulty hearing? ? Past Encounters 04/16/2021 Obstructive Sleep Apnea Syndrome Sugey Jerome, MOLD STAMPER: [address] [place] [phone], Ph. History of Present Illness Note: <p>Jovita Pop has a visit for ALLAN follow-up.</p><div>
</div&g t;<p>Jovita was seen by me on 12/04/20. She has a medical history to include Bipolar, anxiety, depression, obesity, alcohol abuse (sober since 08/14/20), hypothyroidism and post herpetic neuralgia. Labs 07/10/20 TSH 4.03, free T4 wnl, liver panel ALT 68. A1C 5.1%.</p><p>She noted symptoms of loud snoring, witnessed apneas, excessive daytime sleepiness (ESS 16) and nocturia.</p>< p>Polysomnogram was completed on </p><div>{{DATE 10/05/2020}} (BMI 33.04). Sleep efficiency was {{80 92#}}%, AHI {{NUMBER 36.5#}}/hr, RDI {{NUMBER 44.4#}}/hr, REM AHI {{NUMBER 50.8#}}/hr, REM RDI {{NUMBER 55.1#}}/hr, supine AHI {{NUMBER 57#}}/hr, right lateral AHI {{NUMBER 61#}}/hr, left lateral AHI {{NUMBER 4#}}/hr, sp02 alvin {{NUMBER 79#}}%, {{NUMBER 84#}} minutes were spent at a saturation <88%, arousal index {{NUMBER 24#}}/hr, PLMi {{NUMBER 12.3#}}/hr, PLM arousal index {{NUMBER 0.3#}}/hr. EKG showed {{NSR NSR with rare PAC's#}}.</div><div>Last visit Iordered CPAP 6-16 cm and a titration.</div><div>
</div><div>Jovita tells me she is using CPAP every night but things are not going fantastic. She says she starts off every night with CPAP but she always removes it after about 2-5 hours. She often isnot even aware of removing it and she wakes to find it off. Sometimes she removes it because of air leaking that she can't get to stop. She has made adjustments to her mask to tighten it. She tried then tried a Dreamwear and felt like she was suffocating so she went back to the F20. When usingCPAP she is not snoring at all (per her fiance), she feels significantly better rested when she can keep it on for at least four hours and her nocturia is better. </div><div>
</d iv><div>
</div><div>ESS today 03/07</div><div>
</div><div>COMPLIANCE DATA REVIEWED WITH PATIENT: {{DATES 03/11/21-04/09/21#}}, Used {{25 30*}}/30 days, average use {{5 6 4#}} hours {{number 25#}} minutes a night, median pressure {{8 9 10.6#}}cm, 95 th percentile pressure {{9 10 14#}}cm, 95 th percentile air leak {{5 10 12.8#}} lpm, AHI {{1 2 0.9#}}/hour.</div>Review of Systems: ROS as noted in the HPI Review of Systems None recorded. Physical Exam ? Notes: <div>General: A&O, well groo med {{over weight obese* morbidly obese normal weight thin}}. </div><div>HE AD: normocephalic & atraumatic. </div><div>EYES: non icteric.</div><div>LUNGS : CTA all shirley. Good air movement.</div><div>CARDIO: RRR without murmur, gallop or thrill. </div><div>NEURO: A&O. [place] l gait.</div><div>PSYCH: Normal mood and affect.</div><div>CUTANEOUS: no overt lesions or rashes</div>
--- NOTE | 2021-07-14 13:00 | NS.NUTBLAN_ITS ---
Jovita returns for nutritional counseling for weight loss management. Wt: 210 lbs, 5'5 BMI: 34.9 Has lost 2 lbs in last 4 weeks, total of 28 lbs in last year Diet: has had difficulty logging meals but has been more focused on limiting simple carbs and increasing lean protein and healthy fats. Exercise: Has been walking more. nothing routine. Jovita reports she is scheduled for an endoscopy in end of July. Provider does not want to prescribe simaglutide to assist with weight loss before procedure is completed. Continues to c/o sugar cravings. Jovita has not been using her CPAP as she needs new plastic cushion. still needs to order. Brianne today focused on how to increase steps/exercise daily without formal exercise. Encouraged eating 3 x daily and limit carb intake to no more than 100 grams daily. Follow up planned 09/01/21 at 11 am.
== END 2021-07-14 03:15 | disposition home or self-care (01) ==
LOC: DS 03:15
PROVIDERS: PCP Physician Assistant Medical; Visit Provider Dietitian, Registered
DX: E66.8 Other obesity (principal); Z68.34 Body mass index [BMI] 34.0-34.9, adult; Z71.3 Dietary counseling and surveillance
CPT/HCPCS: 97803

== ENCOUNTER 2021-07-14 10:39 | Outpatient (REF) | payer OTHER, MEDICAID, SELFPAY ==
--- NOTE | 2021-07-14 10:00 | PAPFT_PTH ---
PATIENT: Jovita Pop LOC: [facility]#:[id number] AGE/SX: 30/F ROOM: RE07/14/[address]: Awilda Martin : 1990 BED: DIS: 07/14/2021 SPEC #: [id number] RECD: 07/14/21 17:58 STATUS: MEÑO REQ #: [id number] CHRISTIAN: 07/14/21 10:[address]: Awilda Martin DEPT: [facility] Cytology RECD BY: Augusta Ocampo Tissues: 1 - CX/ENDOCX FOR PAP SMEARS Procedures: PAP THIN PREP/UVM Screening HPV DNA PROBE Comments: [id number]
[2021-07-14 16:04] LABS: HCT 41.2 % (36.0-46.0); HGB 13.5 g/dL (11.2-15.7); MCH 27.8 pg (27.0-33.0); MCHC 32.8 % (32.0-36.0); MCV 85 fL (80-95); MPV 11.4 fL (8.0-11.0); Platelet Count 249 10^3/uL (130-400); RBC 4.85 10^6/uL (3.93-5.22); RDW 12.9 % (11.7-14.6); RDW-SD 39.2 fL; WBC 7.08 10^3/uL (4.4-10.8)
[2021-07-14 17:24] LABS: Calculated LDL 155 mg/dL (<100); Cholesterol 262 mg/dL (<200); HDL Cholesterol 33 mg/dL (40-60); TSH 1.15 uIU/mL (0.36-3.74); Triglyceride 373 mg/dL (<150)
[2021-07-15 10:45] LABS: ALT 27 U/L (14-59); AST 17 U/L (15-37); Albumin 4.6 g/dL (3.4-5.0); Alkaline Phosphatase 60 U/L (46-116); Anion Gap 11.7 mmol/L (3-11); BUN 10 mg/dL (7-18); Bilirubin, Total 0.3 mg/dL (0.2-1.0); CO2 24.3 mmol/L (21.0-32.0); CREATININE 0.8 mg/dL (0.55-1.02); Chloride 104 mmol/L (98-107); Glucose 99 mg/dL (74-106); Potassium 4.3 mmol/L (3.5-5.1); Sodium 140 mmol/L (136-145); Total Protein 7.1 g/dL (6.4-8.2)
[2021-07-16 15:43] LABS: Chlamydia Result Negative (Negative); GC Result Negative (Negative)
== END 2021-07-14 10:40 | disposition home or self-care (01) ==
LOC: NCHCN 10:39
PROVIDERS: PCP Physician Assistant Medical; Visit Provider Physician Assistant Medical
DX: Z12.4 Encounter for screening for malignant neoplasm of cervix (principal); Z11.3 Encounter for screening for infections with a predominantly sexual mode of transmission; Z11.51 Encounter for screening for human papillomavirus (HPV); Z00.00 Encounter for general adult medical examination without abnormal findings; Z13.29 Encounter for screening for other suspected endocrine disorder; Z13.220 Encounter for screening for lipoid disorders; Z01.419 Encounter for gynecological examination (general) (routine) without abnormal findings
CPT/HCPCS: 80053; 80061; 85027; 87491; 87591; 88142; 84443; 87624

== ENCOUNTER 2021-07-19 21:02 | Outpatient (REF) | payer OTHER, MEDICAID, SELFPAY ==
[2021-07-21 11:58] LABS: COVID-19 RT-PCR UVMMC Result Negative (Negative)
== END 2021-07-19 21:03 | disposition home or self-care (01) ==
LOC: LBN 21:02
PROVIDERS: PCP Physician Assistant Medical; Visit Provider Physician Assistant Medical
DX: Z20.822 Contact with and (suspected) exposure to COVID-19 (principal); R05.3 Chronic cough
CPT/HCPCS: U0003

== ENCOUNTER 2021-07-24 01:49 | Outpatient (CLI) | payer OTHER, MEDICAID, SELFPAY ==
--- OUTSIDE RECORDS SUMMARY | 2021-07-24 01:50 | XMS_ITS ---
:1990 Author Care Team Providers Name Role Phone EDU LYONS Primary Care Provider [phone] [facility] MEDICAL RECORDS OTHER [phone] [facility] OTHER [phone] Allergies Code Code Name Reaction Severity Status Onset System 905051 RxNorm Imitrex ? ? Active ? 8638 RxNorm Prednisolone ? ? Active ? 42454 RxNorm Trazodone ? ? Active ? Wellbutrin ? ? Active ? 4240 RxNorm Prednisone ? ? Deactivated ? Medications [...] 04/16/2021 Obstructive Sleep Apnea Syndrome Sugey Jerome C PROGRAMMER: [address] [place] [phone], Ph. 12/04/2020 Obstructive Sleep Apnea Syndrome Sugey Jerome NP: [address] [place] [phone], Ph. 08/28/2020 Snoring Sugey Jerome C PROGRAMMER: [address] [place] [phone], Ph. Social History Tobacco Smoking Status Heavy [...]
[2021-07-25 08:46] LABS: Hepatitis C Ab w Rflx HCV PCR Negative (Negative)
[2021-07-25 09:12] LABS: HIV-1/2 Ag & Ab Screen Negative (Negative)
[2021-07-25 11:14] LABS: Syphilis Serology (RPR) Negative (Negative)
== END 2021-07-24 01:50 | disposition home or self-care (01) ==
LOC: LOS 01:49
PROVIDERS: PCP Physician Assistant Medical; Referring Provider Physician Assistant Medical; Visit Provider Physician Assistant Medical
DX: Z00.8 Encounter for other general examination (principal); Z11.4 Encounter for screening for human immunodeficiency virus [HIV]; Z11.3 Encounter for screening for infections with a predominantly sexual mode of transmission; Z11.59 Encounter for screening for other viral diseases
CPT/HCPCS: 36415; 86803; 87389; 86592

== ENCOUNTER 2021-09-08 04:03 | Outpatient (CLI) | payer OTHER, MEDICAID, SELFPAY ==
--- NOTE | 2021-09-08 10:00 | NS.NUTBLAN_ITS ---
Jovita returns for follow up appt for weight management. Wt: 204 lbs, 5'5, BMI: 33. Down 6 lbs in last 8 weeks. Down 34 lbs in last year. Started Ozempic about 3 weeks ago. Has increased dose once, c/o nausea first day but wears off. Reports ozempic has decreased her appetite and she gets full much faster. Continues to drink Mocha Coffee from [employer] in AM many mornings. No routine exercise however has been very active at work and at home. Works FT and single mom of 2 kids. Session today focused on how to meet macronutrient needs for optimal weight loss without excessive muscle loss. Reviewed protein rich foods easy to incorporate into meal plans. Recommended not drinking sugary beverages such as Mocha that contains 79 g carbs. Reviewed how to follow a lower carb, higher protein diet. Goal Wt: 175-180 lbs. Suspect will lose about 1 lbs per week if able to continue to meet macronutrient and exercise needs while taking ozempic. Follow up planned for 10/13/21 at 1 pm.
== END 2021-09-08 04:04 | disposition home or self-care (01) ==
LOC: DS 04:03
PROVIDERS: PCP Physician Assistant Medical; Visit Provider Dietitian, Registered
DX: E66.8 Other obesity (principal); Z68.33 Body mass index [BMI] 33.0-33.9, adult; Z71.3 Dietary counseling and surveillance
CPT/HCPCS: 97803

== ENCOUNTER 2021-10-13 14:28 | Outpatient (CLI) | payer OTHER, MEDICAID, SELFPAY ==
--- NOTE | 2021-10-13 14:00 | NS.NUTBLAN_ITS ---
Jovita returns for nutritional counseling for weight management. Continues to take ozempic q week on lower dose per PCP. Using per CPAP c/o constipation with ozempic- no BM x 7 days despite taking mirilax= bloating and pain Wt: 199 lbs, down 5 lbs in last 4 weeks, down 13 lbs in 2 months Diet Recall: Mocha Coffee from [employer], no lunch, D: salad and chicken. wakes up at night and has cereal Exercise: no routine. Jovita is losing weight since starting ozempic however has had difficulty symptoms such as headaches, nausea, constipation. Lower dose has helped with nausea and head aches but continues with constipation. Recommend d/c mirilax and use 400-800 mg magnesium oxide to help move her bowels without laxative or bloating. Reviewed importance of avoiding simple carbs (Sweet coffees from [employer], cereal) for continued weight loss. Also, encouraged 3 meals a day and routine exercise of 30 min daily. Goal weight: 175-180 lbs. Follow up planned for 12/15/21 at 1 pm. Goal weight in 8 weeks: 189 lbs.
== END 2021-10-13 14:29 | disposition home or self-care (01) ==
LOC: DS 14:31
PROVIDERS: PCP Physician Assistant Medical; Visit Provider Dietitian, Registered
DX: E66.8 Other obesity (principal); Z71.3 Dietary counseling and surveillance
CPT/HCPCS: 97803

== ENCOUNTER 2021-10-19 15:10 | Emergency (ER) | payer OTHER, MEDICAID, SELFPAY ==
[2021-10-19 15:13] VITALS: BP 127/85; PULSE 100; RESP 18; TEMP 36.8; O2SAT 98
--- NOTE | 2021-10-19 15:15 | RT.EKG_ITS ---
APPROVED REPORT Exam: Resting ECG Reason for Exam: chest pressure s/p head injury Patient Location: E HR:86 bpm ECG Measurements Heart Rate 86 AXIS PA 177 P 26 QRSd 100 QRS 74 QT 386 T 31 QTc 461 Conclusion Sinus rhythm...normal P axis, V-rate 60- 99
--- NOTE | 2021-10-19 15:30 | DI.RAD_ITS ---
Exam(s) XR CHEST 2V PA LATERAL EXAM: XR CHEST 2V PA LATERAL CLINICAL HISTORY: chest pain TECHNIQUE: 2D digital imaging was performed. COMPARISON: CR XR CHEST 2V PA LATERAL from 09/06/2020 FINDINGS: MEDIASTINUM: Normal. HEART: Normal. PULMONARY VASCULATURE: Normal. LUNGS: Clear. PLEURAL SPACE: No pleural effusion or pneumothorax. BONE:Unremarkable for age. IMPRESSION: No acute abnormality. DATA REPOSITORY: RADIATION DOSE DELIVERED:
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
--- NOTE | 2021-10-19 15:59 | DI.VRAD_ITS ---
PROCEDURE INFORMATION: Exam: XR Chest Exam date and time: 10/19/2021 3:47 PM Age: 31 years old Clinical indication: Chest pain TECHNIQUE: Imaging protocol: Radiologic exam of the chest. Views: 2 views. COMPARISON: CR XR CHEST 2V PA LATERAL 09/06/2020 10:50 AM FINDINGS: Lungs: No alveolar infiltrate. Pleural spaces: No pleural fluid collection. No pneumothorax. Heart/Mediastinum: Normal heart size. Bones/joints: Unremarkable for patient age. IMPRESSION: No active pulmonary disease. No acute change compared to 09/06/2020. Dictated and Authenticated by: Carlitos Carrillo MD. Ordering:ALLIE Deras MD
== END 2021-10-19 16:09 | disposition home or self-care (01) ==
PROVIDERS: Emergency Provider Physician Assistant; PCP Physician Assistant Medical
DX: S06.0X9A Concussion with loss of consciousness of unspecified duration, initial encounter (principal); R07.89 Other chest pain; W22.8XXA Striking against or struck by other objects, initial encounter; Y93.01 Activity, walking, marching and hiking; F17.210 Nicotine dependence, cigarettes, uncomplicated
CPT/HCPCS: 93005; 99284; 71046; 93010

== ENCOUNTER 2021-11-14 10:23 | Outpatient (REF) | payer OTHER, MEDICAID, SELFPAY ==
--- OUTSIDE RECORDS SUMMARY | 2021-11-14 10:35 | XMS_ITS | Encounter Summary ---
:1990 Author Organization [facility] Address [address] [place] [address] Care Team Providers Name Role Phone Unknown, Provider Primary Care Provider Encounter Details Date Type Department Care Team Description 08/09/2019 Lab Requisition [facility] Outr Resulting Lab, Pathology & Laboratory Provider [facility] [address] [place] [address] Social History Tobacco Use Types Packs/Day Years Used Date Never Assessed Sex Assigned at Date Recorded Not on file documented as of this encounter Plan of Treatment Not on filedocumented as of this encounter Procedures Procedure Name Priority Date/Time Associated Comments Diagnosis CHLAMYDIA/N. Routine 08/08/2019 11:00 Results for this GONORRHOEAE AMPLIFIED EDT proced ure are in RNA the results section. documented in this encounter Results CHLAMYDIA/N. GONORRHOEAE AMPLIFIED RNA (08/08/2019 11:00 EDT) Pathologist Sig nature Gonococcus Result Negative Negative [facility] Chlamydia Result Negative Negative [facility] Specimen Swab - Entire wall of cervix (body struc ture) Performing Organization Address City/State/ZIP Code Phon e Number [facility] [address] [place] [address] SERVICES documented in this encounter Visit Diagnoses Not on filedocumented in this encounter Care Teams Industrial Chemist Relationship Specialty Start Date End Date Unknown, Provider, PCP - General 02/27/09 documented as of this encounter
--- OUTSIDE RECORDS SUMMARY | 2021-11-14 10:35 | XMS_ITS | Encounter Summary ---
:1990 Author Organization [facility] Address [address] [place] [address] Care Team Providers Name Role Phone Unknown, Provider Primary Care Provider Encounter Details Date Type Department Care Team Description 06/08/2018 Results Only [facility] Christofer Bustillo MD [phone] [address] [place] [address] Social History Tobacco Use Types Packs/Day Years Used Date Never Assessed Sex Assigned at Date Recorded Not on file documented as of this encounter Plan of Treatment Not on filedocumented as of this encounter Procedures Procedure Name Priority Date/Time Associated Diagnosis Comme nts PAP TEST- RESULT Routine 06/08/2018 0:00 EDT Resu lts for this ONLY procedure are i n the results section. documented in this encounter Results PAP TEST- RESULT ONLY (06/08/2018 0:00 EDT) Pathology Report: CYTOPATHOLOGY REPORT [facility] Reports generated via electronic interface contain lavelle ginal data; SERVICES however they are lacking the format of the original re port. Caution should be taken when reading/interpreting unfo rmatted reports. Name: ? JOVITA POP ? Accession #: ? [id number] : ? 1990 (Age: [age]) ??F ?Collect Date: ? 06/08 Location: ? [facility] ? Receive Date : ? 06/09/2018 Provider: ?CHRISTOFER JESSICA MD Copy to: ?EDU LYONS PA-C ? Specimen/Source: ? Pap Test, Cervix, ThinPrep Imaging System with manual evaluation Last Menstrual Period: ? Menstrual/ Status: ? Menopausal Hormonal/Contraceptive Status: ? Bilateral Tubal Ligation ? SPECIMEN ADEQUACY ? Satisfactory for Evaluation - transformation zone component present GENERAL CATEGORIZATION ? Negative for Intraepithelial Lesion or Malignan cy INTERPRETATION ? Shift in alfie present suggestive of bacterial vaginosis. ? Document reviewed and electronically signed by: ? ALBA Matthews(ASCP) ? Report Date: ??06/13/2018 09:49 End of Report Specimen Performing Organization Address City/State/ZIP Code Phon e Number [facility] [address] [place] [address] SERVICES documented in this encounter Visit Diagnoses Not on filedocumented in this encounter Care Teams Stopper Maker Relationship Specialty Start Date End Date Unknown, Provider, PCP - General 02/27/09 documented as of this encounter
--- OUTSIDE RECORDS SUMMARY | 2021-11-14 10:35 | XMS_ITS | Encounter Summary ---
:1990 Author Organization [facility] Address [address] [place] [address] Care Team Providers Name Role Phone Unknown, Provider Primary Care Provider Encounter Details Date Type Department Care Team Description 07/14/2021 Lab Requisition [facility] Outr Resulting Lab, Pathology & Laboratory Provider [facility] [address] [place] [address] Social History Tobacco Use Types Packs/Day Years Used Date Never Assessed Sex Assigned at Date Recorded Not on file documented as of this encounter Plan of Treatment Not on filedocumented as of this encounter Procedures Procedure Name Priority Date/Time Associated Comments Diagnosis CHLAMYDIA/N. Routine 07/14/2021 10:00 Results for this GONORRHOEAE AMPLIFIED EDT proced ure are in RNA the results section. documented in this encounter Results CHLAMYDIA/N. GONORRHOEAE AMPLIFIED RNA (07/14/2021 10:00 EDT) Pathologist Sig nature Gonococcus Result Negative Negative [facility] Chlamydia Result Negative Negative [facility] Specimen Urine - Urine, Initial Void Narrative [facility] - 07/16/2021 15:37 EDT A first catch urine specimen is acceptab le for detection of Gonorrhea and Chlamydia, but might detect up to 10% fewer infecti ons when compared with vaginal and endocervical swab samples. Performing Organization Address City/State/ZIP Code Phon e Number [facility] [address] [place] [address] SERVICES documented in this encounter Visit Diagnoses Not on filedocumented in this encounter Care Teams Environmental Marketing Representative Relationship Specialty Start Date End Date Unknown, Provider, PCP - General 02/27/09 documented as of this encounter
--- OUTSIDE RECORDS SUMMARY | 2021-11-14 10:35 | XMS_ITS | Encounter Summary ---
:[address] [facility] Address [address] [place] [address] Care Team Providers Name Role Phone Unknown, Provider Primary Care Provider Encounter Details Date Type Department Care Team Description 08/09/2019 Lab Requisition [facility] Outr Resulting Lab, Pathology & Laboratory Provider [facility] [address] [place] [address] Social History Tobacco Use Types Packs/Day Years Used Date Never Assessed Sex Assigned at Date Recorded Not on file documented as of this encounter Plan of Treatment Not on filedocumented as of this encounter Visit Diagnoses Not on filedocumented in this encounter Care Teams Wood Lathe Operator Relationship Specialty Start Date End Date Unknown, Provider, PCP - General 02/27/09 documented as of this encounter
--- OUTSIDE RECORDS SUMMARY | 2021-11-14 10:35 | XMS_ITS | Encounter Summary ---
:1990 Author Organization [facility] Address [address] [place] [address] Care Team Providers Name Role Phone Unknown, Provider Primary Care Provider Encounter Details Date Type Department Care Team Description 05/11/2019 Lab Requisition [facility] Unknown, Provider, Pathology & Laboratory [facility] [address] [facility] [place], [place] [id number] Social History Tobacco Use Types Packs/Day Years Used Date Never Assessed Sex Assigned at Date Recorded Not on file documented as of this encounter Plan of Treatment Not on filedocumented as of this encounter Procedures Procedure Name Priority Date/Time Associated Comments Diagnosis QUANTIFERON TB GOLD Routine 05/10/2019 14:37 Resu lts for this PLUS EST procedure are i n the results section. documented in this encounter Results QUANTIFERON TB GOLD PLUS (05/10/2019 14:37 EST) Quantiferon Negative Negative [facility] Interpretation Comment: [facility] No interferon-gamma response to M. tuberculosis antigens was detected. ??Infection with M. tuberculosis is unlikely. A single negative result does not exclude infection with M. tuberculosis. ??In patien SERVICES ts at high risk for M. tuber culosis infection, a second test should be considered in accordance with the 2017 ATS/IDSA/CDC Clinical Practice Guidelines for Diagnosis of Tuberculosis in Adults and Childr en. [Shaista BROWN et. al. Clin. Infect. Dis. 2017:64 ( 2) ??: 111-115]. Results were obtained with the [employer] QuantiFERON TB G old Plus HEBER. TB1 Ag minus Nil 0.00 IU/ml [facility] TB2 Ag minus Nil 0.00 IU/mL [facility] Specimen Blood - Venous blood (substance) Narrative [facility] - 05/12/2019 13:34 EST Results were obtained with the [employer] antiFERON-TB Gold Plus HEBER. Performing Organization Address City/State/ZIP Code Phon e Number [facility] [address] [place] [address] SERVICES documented in this encounter Visit Diagnoses Not on filedocumented in this encounter Care Teams Desktop Administrator Relationship Specialty Start Date End Date Unknown, Provider, PCP - General 02/27/09 documented as of this encounter
--- OUTSIDE RECORDS SUMMARY | 2021-11-14 10:35 | XMS_ITS | Encounter Summary ---
:[address] [facility] Address [address] [place] [address] Care Team Providers Name Role Phone Unknown, Provider Primary Care Provider Encounter Details Date Type Department Care Team Description 07/15/2021 Lab Requisition [facility] Michelle Martin for Pathology & Awilda Rao PA-C gynecological Laboratory Medicine [address] [facility] examination (general) - [place], [place] (routine) without [address] [facility] [phone] abnormal findings [place], [place] [id number] Social History Tobacco Use Types Packs/Day Years Used Date Never Assessed Sex Assigned at Date Recorded Not on file documented as of this encounter Plan of Treatment Not on filedocumented as of this encounter Procedures Procedure Name Priority Date/Time Associated Diagnosis Comme nts PAP TEST Today 07/14/2021 10:00 Encounter for Results fo r this EDT gynecological procedure are in examination (general) the re sults (routine) without section. abnormal findings HUMAN PAPILLOMAVIRUS Today 07/14/2021 10:00 Encounter for Re sults for this (HPV) DETECTION-HIGH EDT gynecological proced ure are in RISK TYPES examination (general) the re sults (routine) without section. abnormal findings documented in this encounter Results HUMAN PAPILLOMAVIRUS (HPV) DETECTION-HIGH RISK TYPES (07/14/2021 10:00 EDT) Human Papillomavirus NegativeComment: No Negative [facility] (HPV) Detection-High E6 or E7 mRNA is CENTER LABORATOR Y Types detected from HPV SERVICES types 16,18,31,33,35,39,45 ,51,52,56,58,59,66, and 68 by men's designer mediated amplification. Specimen Pap Test - Cervix and/or Endocervix Performing Organization Address City/State/ZIP Code Phon e Number [facility] [address] [place] [address] SERVICES PAP TEST (07/14/2021 10:00 EDT) Specimens A. Cervix and/or [facility] Endocervix , ThinPrep CENTER Imaging System with LABORATORY Manual Evaluation SERVICES Specimen Adequacy Satisfactory for [facility] Evaluation - CENTER transformation zone LABORATORY component absent SERVICES General Negative for [facility] intraepithelial [place] lesion or malignancy LABORATORY SERVICES Attestation . [facility] CENTER signed by JILL Braun CT(ASCP ) on SERVICES 07/23/2021 at 08 29 Clinical History See below [facility] HPV The result for the Human Pap illomavirus (HPV) Detection-High Risk Types is Negative. No E6 or E7 mRNA is detected from HPV types 16,18,31,33,35,39,45,51,52,56,58,59,66, and 68 by men's designer mediated [facility] amplification.Testing was pe rformed on specimen [id number] and was resulted on 07/23/2021 0756 EDT by ELOY, LAB INSTRUMENT RESULTS IN [facility] Performing Lab [facility] Scanned Images [facility] Specimen Pap Test - Cervix and/or Endocervix Performing Organization Address City/[facility]/ZIP Code Phon e Number [facility] [address] [place] [address] SERVICES documented in this encounter Visit Diagnoses Diagnosis Encounter for gynecological examination (general) (routine) without abnormal findings documented in this encounter Care Teams Burial Needs Salesperson Relationship Specialty Start Date End Date Unknown, Provider, PCP - General 02/27/09 documented as of this encounter
--- OUTSIDE RECORDS SUMMARY | 2021-11-14 10:35 | XMS_ITS | Encounter Summary ---
:1990 Author Organization [facility] Address [address] [place] [address] Care Team Providers Name Role Phone Unknown, Provider Primary Care Provider Encounter Details Date Type Department Care Team Description 01/27/2021 Lab Requisition [facility] Outr Resulting Lab, Pathology & Laboratory Provider [facility] [address], [place] [id number] Social History Tobacco Use Types Packs/Day Years Used Date Never Assessed Sex Assigned at Date Recorded Not on file documented as of this encounter Plan of Treatment Not on filedocumented as of this encounter Procedures Procedure Name Priority Date/Time Associated Diagnosis Comme nts COVID-19 TEST [facility] Today 01/27/2021 10:20 LAB PCR EST COVID-19 TESTING Routine 01/27/2021 10:20 Results for this EST procedure are i n the results section. documented in this encounter Results COVID-19 TEST [facility] LAB PCR (01/27/2021 10:20 EST) Specimen Swab Performing Organization Address City/State/ZIP Code Phon e Number [facility] [address] [place] [address] SERVICES COVID-19 TESTING (01/27/2021 10:20 EST) COVID-19 rt-PCR Negative Negative [facility] Result Comment: CENTER LABORATORY This test has not been FDA c leared or approved. This test has been authorized by FDA under an EUA for use by authorized laboratories. This test has been authorized only for detection of nucleic acid fro SERVICES m 2019-nCoV, not for any oth er viruses or pathogens. This test is only authorized for the duration of the declaration that circumstances exist justifying the authorization of emergency use of in vitro d iagnostic tests for detectio n and/or diagnosis of 2019-nCoV under section 564(b)(1) of Act, 21 U.S.C ?? 360bbb-3(b) (1), unless the authorization is terminated or revoked sooner. Negative results do not prec lude 2019-nCoV infection and should not be used as the sole basis for treatment or other patient management decisions. Negative results must be combined with clinical observa tions, patient history, and epidemiological informatio n. Performed on the [employer] Fusion instrument Performing Lab [place] [facility] Lab [facility] SERVICES Specimen Swab Performing Organization Address City/State/ZIP Code Phon e Number [facility] [address] [place] [address] SERVICES documented in this encounter Visit Diagnoses Not on filedocumented in this encounter Care Teams Peer Support Specialist Relationship Specialty Start Date End Date Unknown, Provider, PCP - General 02/27/09 documented as of this encounter
--- OUTSIDE RECORDS SUMMARY | 2021-11-14 10:35 | XMS_ITS | Encounter Summary ---
:1990 Author Organization [facility] Address [address] [place] [address] Care Team Providers Name Role Phone Unknown, Provider Primary Care Provider Encounter Details Date Type Department Care Team Description 07/20/2021 Lab Requisition [facility] Outr Resulting Lab, Pathology & Laboratory Provider [facility] [address] [place], [place] [id number] Social History Tobacco Use Types Packs/Day Years Used Date Never Assessed Sex Assigned at Date Recorded Not on file documented as of this encounter Plan of Treatment Not on filedocumented as of this encounter Procedures Procedure Name Priority Date/Time Associated Diagnosis Comme nts COVID-19 TEST [facility] Today 07/19/2021 15:30 LAB PCR EDT COVID-19 TESTING Routine 07/19/2021 15:30 Results for this EDT procedure are i n the results section. documented in this encounter Results COVID-19 TEST [facility] LAB PCR (07/19/2021 15:30 EDT) Specimen Swab Performing Organization Address City/State/ZIP Code Phon e Number [facility] [address] [place] [address] SERVICES COVID-19 TESTING (07/19/2021 15:30 EDT) COVID-19 rt-PCR Negative Negative [facility] MED[facility] Result Comment: CENTER LABORATORY This test [...] tions, patient history, and epidemiological informatio n. Testing was performed using the abelardo SARS-CoV-2 assay ([employer] on the Abelardo 6800 System Performing Lab [address] [facility] Lab [facility] SERVICES Specimen Swab Performing Organization Address City/State/ZIP Code Phon e Number [facility] [address] [place] [address] SERVICES documented in this encounter Visit Diagnoses Not on filedocumented in this encounter Care Teams Retirement Specialist Relationship Specialty Start Date End Date Unknown, Provider, PCP - General 02/27/09 documented as of this encounter
--- OUTSIDE RECORDS SUMMARY | 2021-11-14 10:35 | XMS_ITS | Encounter Summary ---
:1990 Author Organization [facility] Address [address] [place] [address] Care Team Providers Name Role Phone Unknown, Provider Primary Care Provider Encounter Details Date Type Department Care Team Description 07/24/2021 Lab Requisition [facility] Outr Resulting Lab, Pathology & Laboratory Provider [facility] [address] [place] [address] Social History Tobacco Use Types Packs/Day Years Used Date Never Assessed Sex Assigned at Date Recorded Not on file documented as of this encounter Plan of Treatment Not on filedocumented as of this encounter Procedures Procedure Name Priority Date/Time Associated Comments Diagnosis HIV 1/2 ANTIGEN AND Routine 07/24/2021 8:25 EDT R esults for this ANTIBODY, 4TH procedure are in GENERATION the results section. documented in this encounter Results HIV 1/2 ANTIGEN AND ANTIBODY, 4TH GENERATION (07/24/2021 8:25 EDT) HIV 1 and 2 NegativeComment: If Negative [facility] Antibody/p24 acute HIV-1 LABORATORY Antigen, 4th infection is SERVICES Generation suspected in a high risk patient, submit plasma specimen for HIV-1 RNA quantitation test. Specimen Blood - Venous blood (substance) Narrative [facility] LABORATORY SERVICES - 07/25/2021 9:08 EDT Fourth Generation assay performed on the Siemens [employer] XPT. Performing Organization Address City/State/ZIP Code Phon e Number [facility] [address] [place] [address] SERVICES documented in this encounter Visit Diagnoses Not on filedocumented in this encounter Care Teams Psychiatric Nurse Relationship Specialty Start Date End Date Unknown, Provider, PCP - General 02/27/09 documented as of this encounter
--- OUTSIDE RECORDS SUMMARY | 2021-11-14 10:35 | XMS_ITS | Clinical Summary ---
:1990 Author Organization [facility] Address [address] [place] [address] Care Team Providers Name Role Phone Unknown, Provider Primary Care Provider Social History Tobacco Use Types Packs/Day Years Used Date Never Assessed Sex Assigned at Date Recorded Not on file Plan of Treatment Health Maintenance Due Date Last Done Comments COVID-19 Vaccine (1) 1994 Hepatitis C Screen Completed 07/24/2021 Care Teams Motor Inspection Mechanic Relationship Specialty Start Date End Date Unknown, Provider, PCP - General 02/27/09
--- OUTSIDE RECORDS SUMMARY | 2021-11-14 10:35 | XMS_ITS | Encounter Summary ---
:[address] [facility] Address [address] [place] [address] Care Team Providers Name Role Phone Unknown, Provider Primary Care Provider Encounter Details Date Type Department Care Team Description 08/04/2019 Lab Requisition [facility] Outr Resulting Lab, Pathology & Laboratory Provider [facility] [address] [place], [place] [id number] Social History Tobacco Use Types Packs/Day Years Used Date Never Assessed Sex Assigned at Date Recorded Not on file documented as of this encounter Plan of Treatment Not on filedocumented as of this encounter Procedures Procedure Name Priority Date/Time Associated Comments Diagnosis DO NOT ORDER Today 08/04/2019 12:10 Results for this STANDALONE - BROAD EDT procedure are in COVID TEST the results section. COVID-19 TESTING Routine 08/04/2019 12:10 Results for this EDT procedure are i n the results section. documented in this encounter Results DO NOT ORDER STANDALONE - BROAD COVID TEST (08/04/2019 12:10 EDT) COVID-19 rt-PCR NEGATIVE Negative [facility] Result Comment: LABORATORY 2019-novel Coronavirus (2019 -nCoV) not detected by the qRT-PCR assay. Consider testing for other respiratory viruses or re-collecting for 2019-nCoV testing. Note: Optimum timing for peak viral levels du ring infections caused by 20 -nCoV have not been determined. Collection of multiple specimens from the same patient may be necessary to detect the virus. Limitations Positive results are indicat [place]ol[place] of active infection with SARS-CoV-2 but do not rule out bacterial infection or co-infection with other viruses. The agent detected may not be the definite cause of diseas e. In addition, detection of viral RNA may not indicate the presence of infectious virus or that SARS-CoV-2 is the causative agent for clinical symptoms. Negative results do not prec lude SARS-CoV-2 infection and should not be used as the sole basis for patient management decisions. Negative results must be combined with clinical observations, patient his tory, and epidemiological in formation. False negative results may also occur if amplification inhibitors are present in the specimen or if inadequate numbers of organisms are present in the specimen. Op timum specimen types and marcia ing for peak viral levels during infections caused by SARS-CoV-2 have not been fully determined. Collection of multiple specimens (types and time points) from the same patient may be necessary to detect the virus. The test was validated for u se with upper respiratory specimens obtained via nasopharyngeal or oropharyngeal swabs in VTM, UTM, M4, M5, M6, saline, and MTM media. The performance of this test has not be en established for other spe cimens. Specimens collected using other FDA recommended Specimen Collection Materials listed in the FDA COVID-19 Diagnostic [employer] communication (June 08, 2019) are pr ocessed with the caveat that they were not all validated for use with this test and the result must be interpreted in this context. Furthermore, a false negative results may occur if a specimen is improperly collected, transported or handled. If the virus mutates in the RT-PCR target region, SARS-CoV-2 may not be detected or may be detected less predictably. Inhibitors or other types of interference may produce a false negative result. An interference study evaluating the effect of common cold medications was not performed. This test is not FDA-cleared but its performance characteristics were established by our CLIA-certified, CAP-accredited, high complexity laboratory in accordance with CLIA regulations, [employer] of [employer]ologists (CAP) guidel emilia (Jun 01, 2019), and FDA guidance (May 13, 2019). This test is only for use un mayur the Food and Drug Administration's Emergency Use Authorization. Specimen Swab - Entire nasopharynx (body structur e) Performing Organization Address City/State/ZIP Code Phon e Number [facility] [place] [place] COVID-19 TESTING (08/04/2019 12:10 EDT) COVID-19 rt-PCR NEGATIVE Negative [facility] Result Comment: LABORATORY 2019-novel Coronavirus (2019 -nCoV) not detected by the qRT-PCR assay. Consider testing for other respiratory viruses or re-collecting for 2019-nCoV testing. Note: Optimum timing for peak viral levels du ring infections caused by 20 19-nCoV have not been determined. Collection of multiple specimens from the same patient may be necessary to detect the virus. Limitations Positive results are indicat carol[place] of active infection with SARS-CoV-2 but do not rule out bacterial infection or co-infection with other viruses. The agent detected may not be the definite cause of diseas e. In addition, detection of viral RNA may not indicate the presence of infectious virus or that SARS-CoV-2 is the causative agent for clinical symptoms. Negative results do not prec lude SARS-CoV-2 infection and should not be used as the sole basis for patient management decisions. Negative results must be combined with clinical observations, patient his tory, and epidemiological in formation. False negative results may also occur if amplification inhibitors are present in the specimen or if inadequate numbers of organisms are present in the specimen. Op timum specimen types and marcia ing for peak viral levels during infections caused by SARS-CoV-2 have not been fully determined. Collection of multiple specimens (types and time points) from the same patient may be necessary to detect the virus. The test was validated for u se with upper respiratory specimens obtained via nasopharyngeal or oropharyngeal swabs in VTM, UTM, M4, M5, M6, saline, and MTM media. The performance of this test has not be en established for other spe cimens. Specimens collected using other FDA recommended Specimen Collection Materials listed in the FDA COVID-19 [employer] communication (June 08, 2019) are pr ocessed with the caveat that they were not all validated for use with this test and the result must be interpreted in this context. Furthermore, a false negative results may occur if a specimen is improperly collected, transported or handled. If the virus mutates in the RT-PCR target region, SARS-CoV-2 may not be detected or may be detected less predictably. Inhibitors or other types of interference may produce a false negative result. An interference study evaluating the effect of common cold medications was not performed. This test is not FDA-cleared but its performance characteristics were established by our CLIA-certified, CAP-accredited, high complexity laboratory in accordance with CLIA regulations, [employer] of [employer] an Pathologists (CAP) guidel emilia (Jun 01, 2019), and FDA guidance (May 13, 2019). This test is only for use un mayur the Food and Drug Administration's Emergency Use Authorization. Performing Lab [facility] LABORATORY SERVICES Specimen Swab - Entire nasopharynx (body structur e) Performing Organization Address City/State/ZIP Code Phon e Number [facility] [address] [place] [address] SERVICES [facility] [place], [place] documented in this encounter Visit Diagnoses Not on filedocumented in this encounter Care Teams Laborer Dairy Farm Relationship Specialty Start Date End Date Unknown, Provider, PCP - General 02/27/09 documented as of this encounter
--- OUTSIDE RECORDS SUMMARY | 2021-11-14 10:35 | XMS_ITS | Encounter Summary ---
:1990 Author Organization [facility] Address [address] [place] [address] Care Team Providers Name Role Phone Unknown, Provider Primary Care Provider Encounter Details Date Type Department Care Team Description 08/22/2019 Lab Requisition [facility] Outr Resulting Lab, Pathology & Laboratory Provider [facility] [address] [place] [address] Social History Tobacco Use Types Packs/Day Years Used Date Never Assessed Sex Assigned at Date Recorded Not on file documented as of this encounter Plan of Treatment Not on filedocumented as of this encounter Procedures Procedure Name Priority Date/Time Associated Diagnosis Comme nts ACUTE HEPATITIS Routine 08/22/2019 15:21 Results for this PROFILE EDT procedure are i n the results section. documented in this encounter Results ACUTE HEPATITIS PROFILE (08/22/2019 15:21 EDT) Hep B Surface Ag Negative Negative [facility] LABORATORY SERVICES Hep C Antibody Negative Negative [facility] LABORATORY SERVICES Hepatitis A Negative Negative [facility] Antibody, IgM Comment: LABORATORY SERVICES The results of this assay ca n be falsely lowered due to the consumption of Biotin. Hepatitis B Core Negative Negative [facility] Ab, Total LABORATORY SERVICES Specimen Blood - Venous blood (substance) Performing Organization Address City/State/ZIP Code Phon e Number [facility] [address] [place] [address] SERVICES documented in this encounter Visit Diagnoses Not on filedocumented in this encounter Care Teams Cigar Machine Feeder Relationship Specialty Start Date End Date Unknown, Provider, PCP - General 02/27/09 documented as of this encounter
--- OUTSIDE RECORDS SUMMARY | 2021-11-14 10:36 | XMS_ITS | Encounter Summary ---
:1990 Author Organization [facility] [place] [address] Care Team Providers Name Role Phone Awilda Martin Primary Care Provider Encounter Details Date Type Department Care Team Description 04/07/2021 Telephone Gastroenterology at [facility] [place] [phone] Social History Tobacco Use Types Packs/Day Years Used Date Current Every Day Smoker 0.5 Smokeless Tobacco: Never Used Alcohol Use Standard Drinks/Week Comments Yes 2 (1 standard drink = 0.6 oz pure alcoho l) Sex Assigned at Date Recorded Female 11/23/2020 9:22 AM EDT documented as of this encounter Miscellaneous Notes Telephone Encounter - Familia Sethi RN - 04/07/2021 11:01 AM EST Jovita calls. Due to childcare issues she cannot make today's scheduled EGD. She would like to reschedule for another Wednesday, as early as possible in the morning. Endo deck informed of cancellation documented in this encounter Plan of Treatment Not on filedocumented as of this encounter Visit Diagnoses Not on filedocumented in this encounter Care Teams Manager Physical Relationship Specialty Start Date End Date Awilda Martin PA PCP - General Family Medicine 08/30/20 [address] [place] [address] documented as of this encounter
--- OUTSIDE RECORDS SUMMARY | 2021-11-14 10:36 | XMS_ITS | Encounter Summary ---
:1990 Author Organization [facility] [place] [address] Care Team Providers Name Role Phone Awilda Martin Primary Care Provider Encounter Details Date Type Department Care Team Description 08/04/2021 Hospital Encounter Gastroenterology at [facility] [place] [address] [place] [address] GASTROENEROLOGY [place], [place] [address] Social History Tobacco Use Types Packs/Day Years Used Date Current Every Day Smoker 0.5 Smokeless Tobacco: Never Used Alcohol Use Standard Drinks/Week Comments Yes 7 (1 standard drink = 0.6 oz pure alcoho l) Sex Assigned at Date Recorded Female 11/23/2020 9:22 AM EDT documented as of this encounter Last Filed Vital Signs Vital Sign Reading Time Taken Comments Blood Pressure 116/76 08/04/2021 1:00 PM EDT Pulse 80 08/04/2021 12:30 PM EDT Temperature 36.2 ??C (97.2 ??F) 08/04/2021 10:51 AM EDT Respiratory Rate 18 08/04/2021 12:40 PM EDT Oxygen Saturation 97% 08/04/2021 1:00 PM EDT Inhaled Oxygen Concentration - - Weight 95.4 kg (210 lb 4.8 oz) 08/04/2021 10:51 AM EDT Height - - Body Mass Index 34.46 11/27/2020 8:45 AM EDT documented in this encounter Discharge Instructions Discharge InstructionsAilyn Little RN - 08/04/2021 12:42 PM EDT Upper GI Endoscopy: What to Expect at Home Your Recovery You will be able to go home after your doctor or nurse checks to make sure you are not having any problems. You may have to stay overnight if you had treatment during the test. You may have a sore throat for a day or two after the test. This care sheet gives you a general idea about what to expect after the test. How can you care for yourself at home? Activity Rest when you feel tired. You can do your normal activities when it feels okay to do so. Diet Follow your doctor's directions for eating. Unless your doctor has told you not to, drink plenty of fluids. This helps to replace the fluids that were lost during the prep. Do not drink alcohol. Medicines Your doctor will tell you if and when you can restart your medicines. He or she will also give you instructions about taking any new medicines. If you take blood thinners, such as warfarin (Coumadin), clopidogrel (Plavix), or aspirin, be sure to talk to your doctor. He or she will tell you if and when to start taking those medicines again. Make sure that you understand exactly what your doctor wants you to do. If polyps were removed or a biopsy was done during the test, your doctor may tell you not to take aspirin or other anti-inflammatory medicines for a few days. These include ibuprofen (Advil, Motrin) and naproxen (Aleve). If you have a sore throat the day after the procedure, use an kuuk-vhs-pqsevlh spray to numb your throat. Sucking on throat lozenges and gargling with warm salt water may also help relieve your symptoms. Other instructions For your safety, do not drive or operate machinery until the medicine wears off and you can think clearly. Your doctor may tell you not to drive or operate machinery until the day after your test. Do not sign legal documents or make major decisions until the medicine wears off and you can think clearly. The anesthesia can make it hard for you to fully understand what you are agreeing to. Additional Information for Sedation Patients For patients who received sedation: You may have received medications before and/or during your procedure which effects your judgement and reaction time. Do not drive, operate machinery, drink alcoholic beverages or make important decisions for 24 hours. Be careful on stairs as you may be unsteady on your feet. You may eat a regular diet as tolerated. Do not smoke if you are alone. IV site: Slight redness or tenderness is normal, you can use a warm compress if you would like. If tenderness and/or redness increase or if foul drainage occurs, please contact your Doctor. Please call [phone] before 8pm Mon-Fri with problems, questions or concerns. If you call after 8pm or on weekends, call the Hospital at [phone] and ask to speak to the Corporate Health Consultant motor inspection mechanic and the dredge operator supervisor will contact that person for you. When should you call for help? Call [phone] anytime you think you may need emergency care. For example, call if: You passed out (lost consciousness). You pass maroon or bloody stools. You have trouble breathing. Call your doctor now or seek immediate medical care if: You have pain that does not get better after you take pain medicine. You are sick to your stomach or cannot drink fluids. You have new or worse belly pain. You have blood in your stools. You have a fever. You cannot pass stools or gas. Watch closely for changes in your health, and be sure to contact your doctor if you have any problems. Where can you learn more? [facility] View your After Visit Summary and more online at [email or web address] If you would like to provide feedback about your hospital experience, please call the Office of Patient and Family Relations at . If you have received this After Visit Summary in error, please immediately return it in person to the department, or notify the [facility] Privacy Office by calling toll free at between the hours of 8AM and 5PM to arrange for our retrieval of the documents at no cost to you. Content Version: 12.2 ?? [id number] [employer]. Care instructions adapted under license by [facility]. If you have questions about a medical condition or this instruction, always ask your healthcare professional. [employer] disclaims any warranty or liability for your use of this information. documented in this encounter Medications at Time of Discharge Medication Sig Dispensed Refills Start Date End Date lamoTRIgine (LaMICtal) 200 Take 400 mg by mouth 0 09/03/2020 mg Tablet daily. cholestyramine (QUESTRAN) 4 Take 1 packet by 30 each 11 gram Powder in Packet mouth daily. escitalopram (LEXAPRO) 20 Take 15 mg by mouth 0 0 07/07/2018 mg Tablet daily. levothyroxine (SYNTHROID) Take 100 mcg by 0 09/07 75 mcg Tablet mouth daily. ARIPiprazole (ABILIFY) 5 mg take 1 tablet by 0 Tablet mouth once daily LORazepam (ATIVAN) 0.5 mg take 1 to 2 tablets 0 0 09/26/2018 Tablet by mouth twice a day if needed albuterol 90 mcg/actuation Inhale 2 puffs into 0 HFA Aerosol Inhaler the lungs as needed for Wheezing. Use with spacer pantoprazole (PROTONIX) 40 Take 1 tablet by 90 tablet 3 mg Tablet, Delayed Release mouth daily. (E.C.)Indications: ran out, Indications: ran needs new script out, needs new script documented as of this encounter H&P Notes Claudy Cason MD - 08/04/2021 11:23 AM EDT Patient Name: Jovita Pop Patient Age: 30 y.o. Birthdate: 1990 Admit date: 08/04/2021 Attending Physician: Claudy Cason MD Gastroenterology and Hepatology Pre-Procedure History and Physical Exam Procedure: EGD: Indication: Nausea, vomiting, diarrhea, abdominal discomfort; significant daily NSAID use, tobacco use There is no problem list on file for this patient. EXAM: HEENT: Airway examined, oropharynx clear Mallampati Score: 2 LUNGS: Clear to auscultation HEART: Regular rate and rhythm, normal S1, S2 ABDOMEN: Normal bowel sounds, soft, non tender, non distended A/P Proceed with the planned endoscopic procedure. ASA 2 - Patient with mild systemic disease with no functional limitations Sedation Plan: moderate (conscious sedation) Risks and benefits of the procedure explained to the patient in detail. Consent signed. documented in this encounter Plan of Treatment Not on filedocumented as of this encounter Procedures Procedure Name Priority Date/Time Associated Diagnosis Comme nts SURGICAL PATHOLOGY Routine 08/04/2021 12:34 PM Re sults for this REPORT EDT procedure are i n the results section. SPECIMEN TO Routine 08/04/2021 12:34 PM Results for this PATHOLOGY EDT procedure are i n the results section. SPECIMEN TO Routine 08/04/2021 12:34 PM Results for this PATHOLOGY EDT procedure are i n the results section. EGD WITH BIOPSY 08/04/2021 12:12 PM Gastritis (WRVU 2.49) EDT UPPER GI ENDOSCOPY Routine 08/04/2021 11:56 AM Re sults for this EDT procedure are i n the results section. documented in this encounter Results Surgical Pathology Report (08/04/2021 12:34 PM EDT) Component Value Ref Test Analysis Performed At [facility] Method Time Signature Surgical [id number] ? Location: ; [facility]; [facility] Report The signing pathologist has (i) examined the relevant preparation(s) for the [facility] specimen(s) and (ii) rendered or confirmed the diagnosis(es) . HOSPITAL LABORATORY . ?Surgic al Pathology DIAGNOSIS A - Duodenum r/o celiac, biopsy (Multiple): Duodenal mucosa within jac l limits, including preserved villous architecture. B - Gastric r/o H. pylori, biopsy (Multiple): Gastric antral gland mucosa with nonspecific reactive gastro maxx. 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 No H. pylori-like microorganism is seen. Electronically signed by: ?Kali PALMER, Danisha Verified: ??08/06/2021 18:12 ??Pathologist Performed at: ??-[facility] Dept. of Pathology, [place], [place] SPECIMEN(S) SUBMITTED A - Duodenum r/o celiac, biopsy (Multiple) B - Gastric r/o H. pylori, biopsy (Multiple) CLINICAL INFORMATION Nausea/vomiting, abdominal pain SPECIMEN PROCESSING A - Labeled/Fixative: Duodenum, rule out celiac, formalin. Quantity/Size: Five, ranging from 0.3-0.5 cm. Tissue Description: Soft, pink tissues. Sections/Processing: Submitted en toto ??in 1 cassette labeled A1. B - Labeled/Fixative: Gastric, rule out H. pylori, formalin. Quantity/Size: Five, ranging from 0.3-0.5 cm. Tissue Description: Soft, pink tissues. Sections/Processing: Submitted en toto ??in 1 cassette labeled B1. ??sns Specimen (Source) Anatomical Collection Method Collection Time Re ceived Time Location / / Volume Laterality 08/04/2021 12:34 PM EDT Claudy Cason MD PATHOLOGY/CYTOLOGY ORDERABLE S Performing Organization Address City/[facility]/ZIP Code Phon e Number [address] Specimen to Pathology (08/04/2021 12:34 PM EDT) Specimen Anatomical Collection Method Collection Time Receive d Time (Source) Location / / Volume Laterality AP Specimen 08/04/2021 12:34 08/04/2021 PM EDT 12:34 PM EDT Narrative [facility] OR - 08/04/2021 12:34 PM EDT Specimen requisition ordered. ??Separate Pathology report to follow Claudy Cason MD PATHOLOGY/CYTOLOGY ORDERABLE S Performing Organization Address City/State/[place] [address] Specimen to Pathology (08/04/2021 12:34 PM EDT) Specimen Anatomical Collection Method Collection Time Receive d Time (Source) Location / / Volume Laterality AP Specimen 08/04/2021 12:34 08/04/2021 PM EDT 12:34 PM EDT Narrative [facility] OR - 08/04/2021 12:34 PM EDT Specimen requisition ordered. ??Separate Pathology report to follow Neconstancej J Cason MD PATHOLOGY/CYTOLOGY ORDERABLE S Performing Organization Address [facility]/[place] [address] UPPER GI ENDOSCOPY (08/04/2021 11:56 AM EDT) Component Value Ref Test Analysis Performed At [facility] Range Method Time Signature UPPER GI [facility] ENDOSCOPY Endoscopy Procedure Date: 08/04/2021 11:56 AM ? Patient Name: Jovita Pop ? N: [id number] ? Date of : 1990 ? Age: 30 ? Order #: [id number] ? Instrument Name: [id number] ? Procedure: ? Upper GI endoscopy Indications: ? Abdominal pain, Dyspepsia, ? Diarrhea, Nausea with vomi ting Providers: ? Claudy Cason, Fransisca Preston, Dimas an ? Juan Cavazos, LINDA, Digna Spencer, ? Flush Tester Referring MD: ?RUSSELL Camarillo Rachel A. ? [facility]: ? Fentanyl 150 micrograms IV, ? Midazolam 5 mg IV Complications: ? No immediate complications. ? Estimated blood loss: Mini mal. Procedure: ? Pre-Anesthesia Assessment: ? - Prior to the procedure, a History ? and Physical was performed , and ? patient medications, aller gies and ? sensitivities were reviewe d. The ? patient's tolerance of pre vious ? anesthesia was reviewed. ? - The risks and benefits o f the ? procedure and the sedation options ? and risks were discussed w ith the ? patient. All questions wer e ? answered and informed cons ent was ? obtained. ? - ASA Grade Assessment: II - A ? patient with mild systemic disease. ? - The anesthesia plan was to use ? moderate sedation/analgesi a ? (conscious sedation). ? The procedure, indications , ? benefits, risks and altern atives ? were explained to the julien ent. ? Specifically discussed wer e ? potential complications in cluding, ? but not limited to, tamiko villegas, ? perforation, infection, mi ssing a ? cancer, and adverse medica tion ? reactions. The Endoscope w as ? introduced through the delaney th, and ? advanced to the second par t of ? duodenum The upper GI endo scopy was ? accomplished with ease. Th e patient ? tolerated the procedure we ll. ? Findings: ? The examined esophagus was normal. Few diminutive ? islands of salmon colored mucosa just proximal to ? otherwise unremarkable Z-line, previously biopsied ? and negative for Spencer's esophagus, no biopsies of ? this area taken. ? Esophagogastric landmarks were identified: the Z-line ? was found at 40 cm, the gastroesophageal junction was ? found at 40 cm and the site of hiatal narrowing was ? found at 42 cm from the incisors. ? The entire examined stomach was normal. Biopsies were ? taken with a cold forceps for Helicobacter pylori ? testing. Verification of patient identification for ? the specimen was done by the physician and nurse ? using the patient's name and date. Estimated ? blood loss was minimal. ? The duodenal bulb and second portion of the duodenum ? were normal. Biopsies for histology were taken with a ? cold forceps for evaluation of celiac disease. ? Estimated blood loss was minimal. ? Moderate Sedation: ? Moderate (conscious) sedation was administered by the ? endoscopy nurse and supervised by the endoscopist. ? The patient's oxygen saturation, heart rate, blood ? pressure and response to care were monitored. Impression: ?- Normal esophagus. ? - Esophagogastric landmark s ? identified. ? - Normal stomach. Biopsied . ? - Normal duodenal bulb and second ? portion of the duodenum. B iopsied. Recommendation: ?- Patient has a contact number ? available for emergencies. The ? signs and symptoms of pote ntial ? delayed complications were ? discussed with the patient . Return ? to normal activities maría ralph. ? Written discharge instruct ions were ? provided to the patient. ? - Discharge patient to veda e ? (ambulatory). ? - Await pathology results. ? - Repeat upper endoscopy P RN. ? - Return to referring phys ician. ? Procedure Code(s): ? --- Professional --- ? 39270, Esophagogastroduode noscopy, ? flexible, transoral; with biopsy, ? single or multiple CPT copyright 2021 [employer]. All rights reserved. The codes documented in this report are preliminary and upon tight cooper review may be revised to meet current compliance requirements. Attending Participation: ? I was present and participated during the entire ? procedure, including non-peres portions. ? Neej Jorge Cason, 08/04/2021 12:32:22 PM Number of Addenda: 0 Note Initiated On: 08/04/2021 11:56 AM Specimen (Source) Anatomical Collection Method Collection Time Re ceived Time Location / / Volume Laterality 08/04/2021 11:56 AM EDT Johanna Stack APRN GENERAL SURGICAL ORDERABLES Performing Organization Address City/State/ZIP Code Phon e Number [employer] documented in this encounter Visit Diagnoses Not on filedocumented in this encounter Administered Medications Inactive Administered Medications - up to 3 most recent administrations Medication Order MAR Action Action Date Dose Rate Site lactated ringers infusion New Bag 08/04/2021 11:01 AM 100 mL/hr 100 mL/hr 100 mL/hr, Intravenous, EDT CONTINUOUS, Starting on Wed08/04/21 at 1130, Until Wed08/04/21 at 1256, Endoscopy (Day of Procedure) documented in this encounter Active and Recently Administered Medications Times are shown in EDT. Continuous Medication Order 08/02/2021 08/03/2021 08/04/2021 lactated ringers infusion (CANCELED) 1101 (New Bag - Provider: Lucrecia Lopez RN) 100 mL/hr, Intravenous, CONTINUOUS, Star ting on Wed08/04/21 at 1130, Until Wed08/04/21 at 1256, Endoscopy (Day of Procedure) PRN Medication Order 08/02/2021 08/03/2021 08/04/2021 fentaNYL (pf) (50 mcg/mL) multi-dose injection (CANCELED) 1213 (Given - Provider: Alcides Cavazos, LINDA)1216 (Given - Provider: Alcides Cavazos, LINDA)1219 (Given - Provider: Alcides Cavazos, LINDA)1222 (Given - Provider: Alcides Cavazos, LINDA) ONCE PRN, Starting on Wed08/04/21 at 121 3, Until Wed08/04/21 at 1512, Intra- Operative (Intra-Procedure), Routine midazolam (pf) (Versed) (1 mg/mL) multi-dose injection (CANCELED ) 1213 (Given - Provider: Alcides Cavazos, RN)1216 (Given - Provider: Alcides Cavazos RN)1219 (Given - Provider: Alcides Cavazos, RN)1222 (Given - Provider: Alcides Cavazos, RN) ONCE PRN, Starting on Wed08/04/21 at 121 3, Until Wed08/04/21 at 1512, Intra- Operative (Intra-Procedure), Routine documented in this encounter Care Teams U[employer] Burnisher Relationship Specialty Start Date End Date Awilda Martin PA PCP - General Family Medicine 08/30/20 [address] [place] [address] documented as of this encounter
--- OUTSIDE RECORDS SUMMARY | 2021-11-14 10:36 | XMS_ITS | Encounter Summary ---
:1990 [place] [address] Care Team Providers Name Role Phone Awilda Martin Primary Care Provider Encounter Details Date Type Department Care Team Description 08/04/2021 Surgery [place] at [facility] Claudy Cason MD EGD WITH BIOPSY ([facility] [address]) [place] [address] [address] [phone] [facility] [place], [place] [address] Social History Tobacco Use Types Packs/Day Years Used Date Current Every Day Smoker 0.5 Smokeless Tobacco: Never Used Alcohol Use Standard Drinks/Week Comments Yes 7 (1 standard drink = 0.6 oz pure alcoho l) Sex Assigned at Date Recorded Female 11/23/2020 9:22 AM EDT documented as of this encounter Last Filed Vital Signs Vital Sign Reading Time Taken Comments Blood Pressure 120/71 08/04/2021 10:51 AM EDT Pulse 70 08/04/2021 10:51 AM EDT Temperature 36.2 ??C (97.2 ??F) 08/04/2021 10:51 AM EDT Respiratory Rate - - Oxygen Saturation 98% 08/04/2021 10:51 AM EDT Inhaled Oxygen Concentration - - Weight [...] the day after the procedure, use an [id number] spray to numb your throat. Sucking on [...] occurs, please contact your Doctor. Please call [phone] before 8pm Mon-Fri with problems, questions or concerns. If you call after 8pm or on weekends, call the Hospital at [phone] and ask to speak to the Search Consultant labor union business representative and the preservative filler machine operator will contact that person for you. When should you call for help? Call [phone] anytime you think you may need emergency [...] problems. Where can you learn more? [facility] View your After Visit Summary and more online at [email or web address] If you would like to provide feedback about your hospital experience, please call the Office of Patient and Family Relations at . If you have received this After Visit Summary in error, please immediately return it in person to the department, or notify the [facility] Privacy Office by calling toll free at between the hours of 8AM and 5PM to arrange for our retrieval of the documents at no cost to you. Content Version: 12.2 ?? [phone] [employer]. Care instructions adapted under license by [facility]. If you have questions about a medical condition or this instruction, always ask your healthcare professional. [employer] disclaims any warranty or liability for your [...] Component Value Ref Test Analysis Performed At [facility] Method Time Signature Surgical [id number] ? Location: ; [facility]; [facility] Report The signing pathologist has (i) [...] Danisha Verified: ??08/06/2021 18:12 ??Pathologist Performed at: ??-[facility] Dept. of Pathology, [place], [place] SPECIMEN(S) SUBMITTED A - Duodenum r/o [...] MD PATHOLOGY/CYTOLOGY ORDERABLE S Performing Organization Address City/[facility]/ZIP Code Phon e Number [address] Specimen to Pathology (08/04/2021 12:34 PM EDT) Specimen Anatomical Collection Method Collection Time Receive d Time (Source) Location / / Volume Laterality AP Specimen 08/04/2021 12:34 08/04/2021 PM EDT 12:34 PM EDT Narrative [facility] OR - 08/04/2021 12:34 PM EDT Specimen requisition ordered. ??Separate Pathology report to follow Claudy Cason MD PATHOLOGY/CYTOLOGY ORDERABLE S Performing Organization Address City/State/[place] [address] Specimen to Pathology (08/04/2021 12:34 PM EDT) Specimen Anatomical Collection Method Collection Time Receive d Time (Source) Location / / Volume Laterality AP Specimen 08/04/2021 12:34 08/04/2021 PM EDT 12:34 PM EDT Narrative [facility] OR - 08/04/2021 12:34 PM EDT Specimen requisition ordered. ??Separate Pathology report to follow Neconstancej J Cason MD PATHOLOGY/CYTOLOGY ORDERABLE S Performing Organization Address [facility]/[place] [address] UPPER GI ENDOSCOPY (08/04/2021 11:56 AM EDT) Component Value Ref Test Analysis Performed At [facility] Range Method Time Signature UPPER GI [facility] PROVATION ENDOSCOPY Endoscopy Procedure Date: 08/04/2021 11:56 AM ? Patient Name: Jovita Pop ? N: [id number] ? Date of : 1990 ? Age: 30 ? Order #: [id number] ? Instrument Name: [id number] ? Procedure: ? Upper GI endoscopy Indications: ? Abdominal pain, Dyspepsia, ? Diarrhea, Nausea with vomi ting Providers: ? Claudy Cason, Fransisca Preston, Dimas an ? Juan Cavazos, LINDA, Digna Spencer, ? Sales And Retail Management Recruiter Referring MD: ?RUSSELL Camarillo Rachel A. ? [facility]: ? Fentanyl 150 micrograms IV, ? [...] Procedure Code(s): ? --- Professional --- ? 55327, Esophagogastroduode noscopy, ? flexible, transoral; with biopsy, ? single or multiple CPT copyright 2021 [employer]. All rights reserved. The codes documented in this report are preliminary and upon plc engineer review may be revised to meet current [...] MAR Action Action Date Dose Rate Site fentaNYL (pf) (50 mcg/mL) Given 08/04/2021 12:22 PM EDT 25 mcg multi-dose injection ONCE PRN, Starting on Wed08/04/21 at 1213, Until Wed08/04/21 at 1512, Intra-Operative (Intra-Procedure), Routine Given 08/04/2021 12:19 PM EDT 25 mcg Given 08/04/2021 12:16 PM EDT 50 mcg lactated ringers infusion New Bag 08/04/2021 11:01 AM EDT 100 mL/hr 100 mL/hr 100 mL/hr, Intravenous, CONTINUOUS, Starting on Wed08/04/21 at 1130, Until Wed08/04/21 at 1256, Endoscopy (Day of Procedure) midazolam (pf) (Versed) (1 mg/mL) multi-dose Given 12:22 PM EDT 1 mg injection ONCE PRN, Starting on Wed08/04/21 at 1213, Until Wed08/04/21 at 1512, Intra-Operative (Intra-Procedure), Routine Given 08/04/2021 12:19 PM EDT 1 mg Given 08/04/2021 12:16 PM EDT 1 mg documented in this encounter Active and Recently [...] injection (CANCELED) 1213 (Given - Provider: Alcides Cavazos RN)1216 (Given - Provider: Alcides Cavazos, LINDA)1219 (Given - Provider: Alcides Cavazos RN)1222 (Given - Provider: Alcides Cavazos RN) ONCE PRN, Starting on Wed08/04/21 at 121 3, Until Wed08/04/21 at 1512, Intra- Operative (Intra-Procedure), Routine midazolam (pf) (Versed) (1 mg/mL) multi-dose injection (CANCELED ) 1213 (Given - Provider: Alcides Cavazos RN)1216 (Given - Provider: Alcides Cavazos RN)1219 (Given - Provider: Alcides Cavazos RN)1222 (Given - Provider: Alcides Cavazos RN) ONCE PRN, Starting on Wed08/04/21 at 121 3, Until Wed08/04/21 at 1512, Intra- Operative (Intra-Procedure), Routine documented in this encounter Care Teams Faculty Criminal Justice Relationship Specialty Start Date End Date Awilda Martin PA PCP - General Family Medicine 08/30/20 [address] [place] [address] documented as of this encounter
--- OUTSIDE RECORDS SUMMARY | 2021-11-14 10:36 | XMS_ITS | Encounter Summary ---
:1990 Author Organization [facility] [place] [address] Care Team Providers Name Role Phone Awilda Martin Primary Care Provider Encounter Details Date Type Department Care Team Description 10/25/2018 Office [place] [facility], Gastroesophageal reflux [facility] Johnnie Wells TOPOGRAPHY TECHNICIAN [place] [address] [facility] esophagitis [phone] [place] [address] Social History Tobacco Use Types Packs/Day Years Used Date Current Every Day Smoker 0.5 Smokeless Tobacco: Never Used Alcohol Use Standard Drinks/Week Comments Yes 2 (1 standard drink = 0.6 oz pure alcoho l) Sex Assigned at Date Recorded Female 11/23/2020 9:22 AM EDT documented as of this encounter Last Filed Vital Signs Vital Sign Reading Time Taken Comments Blood Pressure 114/71 10/25/2018 10:24 AM EDT Pulse 78 10/25/2018 10:24 AM EDT Temperature - - Respiratory Rate - - Oxygen Saturation - - Inhaled Oxygen Concentration - - Weight 99.1 kg (218 lb 8 oz) 10/25/2018 10:24 AM EDT Height 167.6 cm (5' 6) 10/25/2018 10:24 AM EDT Body Mass Index 35.27 10/25/2018 10:24 AM EDT documented in this encounter Progress Notes Russell Gee RN - 10/25/2018 10:30 AM EDT __25__minutes of this__30__-minute visit were spent in face to face discussion and/or counseling thepatient, regarding symptoms and treatment options as detailed below. Pt is here for follow up regarding recent gi testing. Egd: The Z-line was regular and was found 37 cm from the ?incisors. There were some tiny and small islands in ?the distal esophagus which may be ultrashort IM. ?Biopsies were taken with a cold forceps for histology. ?A medium-sized hiatal hernia was found. The proximal ?extent of the gastric folds (end of tubular ?esophagus) was 37 cm from the incisors. The hiatal ?narrowing was 40 cm from the incisors. ?The examined duodenum was normal. ? Moderate Sedation: ?Moderate (conscious) sedation was administered by the ?endoscopy nurse and supervised by the endoscopist. ?The following parameters were monitored: oxygen ?saturation, heart rate, blood pressure, and response ?to care. Impression: ?- Z-line regular, 37 cm from the ?incisors. Biopsied. Possible ?ultrashort IM. No ulcerative changes. ?- Medium-sized hiatal hernia. ?- Normal examined duodenum. Recommendation: ?- Continue present medications. ?- Await pathology results. ?- Return to referring physician after ?studies are complete. ? Bx: Esophagus, ??biopsy: - ??Squamocolumnar junctional mucosa (cardia type) with mild chronic inflammation. ??There is no evidence of intestinal metaplasia. Pt is taking Protonix 40mg qd. Doing well. No further reflux. No dysphagia, odynophagia, n/v. Pt is slowly making dietary changes; mediaterranean diet. She inquires about hiatal hernia repair. Stools continue to be frequent and loose. burning my butt. Associated cramping and urgency. Plan: 1. Gerd: continue with protonix 40mg qd. If pt wishes to see a surgeon she will contact us 2. IBS-D: questran 1/2-1 packet qd; continue with recommended dietary changes. 3. Pt to contact via my regarding progress documented in this encounter Plan of Treatment Not on filedocumented as of this encounter Visit Diagnoses Diagnosis Gastroesophageal reflux disease without esophagitis Esophageal reflux documented in this encounter Care Teams R D Manager Relationship Specialty Start Date End Date Awilda Martin PA PCP - General Family Medicine 07/06/18 10/31/19 [address] [place] [address] documented as of this encounter
--- OUTSIDE RECORDS SUMMARY | 2021-11-14 10:36 | XMS_ITS | Encounter Summary ---
:1990 Author Organization [facility] [place] [address] Care Team Providers Name Role Phone Awilda Mratin Primary Care Provider Encounter Details Date Type Department Care Team Description 10/11/2018 Hospital Encounter Gastroenterology at [facility] [place] [address] [facility] [phone] GASTROENTEROLOGY DEPT. [place], [place] [address] Social History Tobacco Use Types Packs/Day Years Used Date Current Every Day Smoker 0.5 Smokeless Tobacco: Never Used Alcohol Use Standard Drinks/Week Comments Yes 2 (1 standard drink = 0.6 oz pure alcoho l) Sex Assigned at Date Recorded Female 11/23/2020 9:22 AM EDT documented as of this encounter Last Filed Vital Signs Vital Sign Reading Time Taken Comments Blood Pressure 114/66 10/11/2018 5:45 PM EDT Pulse 83 10/11/2018 5:40 PM EDT Temperature - - Respiratory Rate 16 10/11/2018 5:45 PM EDT Oxygen Saturation 92% 10/11/2018 5:50 PM EDT Inhaled Oxygen Concentration - - Weight - - Height - - Body Mass Index - - documented in this encounter Discharge Instructions Discharge InstructionsDiane Mills RN - 10/11/2018 5:41 PM EDT UPPER GI ENDOSCOPY WHAT TO EXPECT AFTER THE PROCEDURE After the test you may feel a little more gassy or bloated than usual, this is normal. ACTIVITY Because of the sedation that you received Your judgement and reaction time are affected ?? Go home and rest quietly for the remainder of the day. You may resume your normal activities tomorrow. ?? Change from one position to the next slowly. You may lose your balance unexpectedly Be careful on stairs, as you may be unsteady on your feet. FOR THE NEXT 24 HRS ?? DO NOT DRIVE OR OPERATE ANY MACHINERY ?? DO NOT DRINK ALCOHOLIC BEVERAGES ?? DO NOT SIGN LEGAL DOCUMENTS ?? If you are a smoker: DO NOT SMOKE WHILE YOU ARE ALONE Diet ?? Start by eating small portions of foods that ordinarily will not upset your stomach. Be gentle with what you choose to start with. ?? Drink plenty of fluids ( unless otherwise told not to) Medications You may have a mild sore throat. Ice chips, popsicles, over the counter throat lozenges or spray may help numb your throat. This procedure should not cause a fever. IV SITE-- slight redness or tenderness is normal, you can use warm compresses if you get concerned.If the tenderness +/or redness increases or foul drainage and a red streak occurs, please contact your PCP immediately. WHEN SHOULD YOU CALL FOR HELP? Call 911 anytime you think that you need emergency care. For example, call if: You passed out (lost consciousness). You cough up blood. You vomit blood or what looks like coffee grounds. You pass maroon or very bloody stools. Call your healthcare provider or seek immediate medical attention if: You have trouble swallowing. You have belly pain. Your stools are black or tarlike or have streaks of blood. You are sick to your stomach or cannot keep fluids down. Watch closely for changes in your health, and be sure to contact your doctor IF Your throat still hurts after a day or two You do not get better as expected. Wednesday-Wednesday Same Day Endo [phone] 7a-8p Otherwise contact [phone] and ask to speak to the ramp and cargo supervisor information technology intern Follow-up care is a peres part of your treatment and safety. Be sure to make and go to all appointments, and call your doctor if you are having problems. Instructions have been reviewed and patient expresses understanding Patient InstructionsSaurabh Jara MD - 10/11/2018 5:33 PM EDT Please see Recommendations in the Provation procedure report which is documented in the procedural note in E-DH. documented in this encounter Medications at Time of Discharge Medication Sig Dispensed Refills Start Date End Date escitalopram (LEXAPRO) 20 Take 15 mg by [...] documented as of this encounter H&P Notes Saurabh Jara MD - 10/11/2018 3:55 PM EDT Gastroenterology and Hepatology Pre-Procedure History and Physical Exam Procedure: Upper endoscopy Indication: Dyspepsia, pyrosis There is no problem list on file for this patient. EXAM: HEENT: Airway examined, oropharynx clear Mallampati Score: I (soft palate, uvula, fauces, tonsillar pillars visible) LUNGS: Clear to auscultation HEART: Regular rate and rhythm, normal S1, S2 ABDOMEN: Normal bowel sounds, soft, non tender, non distended, A/P Proceed with the planned endoscopic procedure. ASA 1 - Normal health patient Sedation Plan: moderate (conscious sedation) Risks and benefits of the procedure explained to the patient. Consent signed. documented in this encounter Miscellaneous Notes Op Note - Saurabh Jara MD - 10/11/2018 5:32 PM EDT [facility] Operative Note Patient Name: Jovita Pop : [id number] MR#: [id number] Case Date: 10/11/2018 Surgeon: Surgeon(s) and Role: * Saurabh Jara MD - Primary Preoperative diagnosis: gerd, dyspepsia (IVCS) Postoperative diagnosis: Possible short segment Dumont's esophagus, biopsies taken Procedure(s) (LRB): EGD, UPPER GI ENDOSCOPY (N/A) UPPER GASTROINTESTINAL ENDOSCOPY,WITH BIOPSY SINGLE OR MULTIPLE (WRVU 2.49) (N/A) Attestation: Case Date: 10/11/2018 SAURABH JARA MD 10/11/2018 Full procedure note is documented under the Procedure section of eDH. documented in this encounter Plan of Treatment Not on filedocumented as of this encounter Procedures Procedure Name Priority Date/Time Associated Comments Diagnosis SPECIMEN TO PATHOLOGY Routine 10/11/2018 5:32 Res ults for this PM EDT procedure are i n the results section. SURGICAL PATHOLOGY Routine 10/11/2018 5:29 Result s for this REPORT PM EDT procedure are i n the results section. UPPER GASTROINTESTINAL 10/11/2018 5:17 Dyspepsia ENDOSCOPY,WITH BIOPSY PM EDT Gastroesophageal SINGLE OR MULTIPLE (WRVU reflux disease, 2.49) esophagitis presence not specified EGD, UPPER GI ENDOSCOPY 10/11/2018 5:17 Dyspepsi a PM EDT Gastroesophageal reflux disease, esophagitis presence not specified UPPER GI ENDOSCOPY Routine 10/11/2018 5:06 Result s for this PM EDT procedure are i n the results section. documented in this encounter Results Specimen to Pathology (10/11/2018 5:32 PM EDT) Specimen Anatomical Collection Method Collection Time Receive d Time (Source) Location / / Volume Laterality AP Specimen 10/11/2018 5:32 PM 9 5:32 EDT PM EDT [facility] LABORAT ORY - 10/11/2018 5:32 PM EDT Specimen requisition ordered. ??Separate Pathology report to follow Saurabh Vergara MD PATHOLOGY/CYTOLOGY ORDERABLE S Performing Organization Address City/[facility]/ZIP Code Phon e Number [place] [phone] Surgical Pathology Report (10/11/2018 5:29 PM EDT) Component Value Ref Test Analysis Performed At [facility] Method Time Signature Surgical [id number] ? Location: 4T; EA10; A [facility] Report The signing pathologist has (i) examined the relevant preparation(s) for the [facility] specimen(s) and (ii) rendered or confirmed the diagnosis(es) . HOSPITAL LABORATORY . ?Surgic al Pathology DIAGNOSIS Esophagus, ??biopsy: - ??Squamocolumnar junctiona l mucosa (cardia type) with mild chronic inflammation. There is no evidence of intestinal metaplasia. Electronically signed by: ??Jose Bazan MD Verified: ??10/13/2018 ?Pathologist Performed at: ??-[facility] Dept. of Pathology, [place], [place] CLINICAL INFORMATION Specimen Submitted: A - Esophageal bx r/o dumont's Clinical History and Diagnosis: 28-year-old female with GERD SPECIMEN PROCESSING A - Labeled/Fixative: Esophageal biopsy rule out Dumont's, formalin. Quantity/Size: Fragments, 0.2-0.3 cm. Tissue Description: Soft, jameson-pink tissues. Sections/Processing: Submitted en toto ??in 1 cassette labeled A1. ??pps Specimen (Source) Anatomical Collection Method Collection Time Re ceived Time Location / / Volume Laterality 10/11/2018 5:29 PM EDT Saurabh Vergara MD PATHOLOGY/CYTOLOGY ORDERABLE S Performing Organization Address City/[facility]/[place] [address] UPPER GI ENDOSCOPY (10/11/2018 5:06 PM EDT) Component Value Ref Test Analysis Performed At [facility] Method Time Signature UPPER GI [facility] ENDOSCOPY Endoscopy Procedure Date: 10/11/2018 5:06 PM ? Patient Name: Jovita Pop ? Date of : 1990 ? Age: 28 ? Order #: [id number] ? Instrument Name: [id number] ? Procedure: ? Upper GI endoscopy Indications: ? Follow-up of gastro-esophageal refl ux ? disease Providers: ? Saurabh Jara MD, Joycelyn ? LINDA Rose, Digna Dumont , ? Tray Service Worker Referring : ?RUSSELL Camarillo Medicines: ? Midazolam 3 mg IV, Fentanyl 125 ? micrograms IV Complications: ? No immediate complications. Procedure: ? Pre-Anesthesia Assessment: ? - Prior to the procedure, a H istory ? and Physical was performed, a nd ? patient medications, allergie s and ? sensitivities were reviewed. The ? patient's tolerance of previo us ? anesthesia was reviewed. ? - The risks and benefits of t he ? procedure and the sedation op tions ? and risks were discussed with the ? patient. All questions were a nswered ? and informed consent was obta ined. ? - Abdominal Examination: asa l sounds ? present, abdomen soft and non -tender, ? no masses or organomegaly not ed. ? - CV Examination: normal. ? - Mental Status Examination: alert ? and oriented. ? - Respiratory Examination: cl ear to ? auscultation. ? - ASA Grade Assessment: I - A normal, ? healthy patient. ? - After reviewing the risks a nd ? benefits, the patient was elpidio med in ? satisfactory condition to und ergo the ? procedure. ? - The anesthesia plan was to use ? moderate sedation/analgesia ? (conscious sedation). ? - Immediately prior to admini stration ? of medications, the patient w as ? re-assessed for adequacy to r eceive ? sedatives. ? - Sedation was administered b y an ? endoscopy nurse. The sedation level ? attained was moderate. ? - The heart rate, respiratory rate, ? oxygen saturations, blood pre ssure, ? adequacy of pulmonary ventila tion, ? and response to care were mon itored ? throughout the procedure. ? - The physical status of the patient ? was re-assessed after the pro cedure. ? The procedure, indications, b enefits, ? risks and alternatives were e xplained ? to the patient. Specifically ? discussed were potential ? complications including, but not ? limited to, bleeding, perfora tion, ? infection, missing a cancer, and ? adverse medication reactions. The ? Endoscope was introduced thro ugh the ? mouth, and advanced to the se cond ? part of duodenum. The patient ? tolerated the procedure well. The ? upper GI endoscopy was accomp lished ? without difficulty. ? Findings: ? The Z-line was regular and was found 37 cm from the ? incisors. There were some tiny and small islands in ? the distal esophagus which may be ultrashort IM. ? Biopsies were taken with a cold forceps for histology . ? A medium-sized hiatal hernia was found. The proximal ? extent of the gastric folds (end of tubular ? esophagus) was 37 cm from the incisors. The hiatal ? narrowing was 40 cm from the incisors. ? The examined duodenum was normal. ? Moderate Sedation: ? Moderate (conscious) sedation was administered by the ? endoscopy nurse and supervised by the endoscopist. ? The following parameters were monitored: oxygen ? saturation, heart rate, blood pressure, and response ? to care. Impression: ?- Z-line regular, 37 cm from the ? incisors. Biopsied. Possible ? ultrashort IM. No ulcerative changes. ? - Medium-sized hiatal hernia. ? - Normal examined duodenum. Recommendation: ?- Continue present medications. ? - Await pathology results. ? - Return to referring physici an after ? studies are complete. ? Attending Participation: ? I personally performed the entire procedure. I was ? present during the intraservice time as documented by ? the sedation RN. ? Saurabh Jara MD 10/11/2018 5:51:19 PM This report has been signed electronically. Number of Addenda: 0 Note Initiated On: 10/11/2018 5:06 PM Specimen (Source) Anatomical Collection Method Collection Time Re ceived Time Location / / Volume Laterality 10/11/2018 5:06 PM EDT Unknown GENERAL SURGICAL ORDERABLES Performing Organization Address City/State/ZIP Code Phon e Number [facility] documented in this encounter Visit Diagnoses Not on filedocumented in this encounter Administered Medications Inactive Administered Medications - up to 3 most recent administrations Medication Order MAR Action Action Date Dose Rate Site lactated ringers infusion New Bag 10/11/2018 4:19 PM EDT 100 mL/hr 100 mL/hr 100 mL/hr, Intravenous, CONTINUOUS, Starting on Wed10/11/18 at 1630, Until Wed10/11/18 at 2019, Endoscopy (Day of Procedure) documented in this encounter Active and Recently Administered Medications Times are shown in EDT. Continuous Medication Order 10/09/2018 10/10/2018 10/11/2018 lactated ringers infusion 1619 ( New Bag - Provider: Lucrecia Lopez RN) 100 mL/hr, at 100 mL/hr, Intravenous, CO NTINUOUS, Starting Wed10/11/18 at 1630, Until Wed10/11/18 at 2019, Endo (Day of Procedure) PRN Medication Order 10/09/2018 10/10/2018 10/11/2018 benzocaine (TOPEX) 20 % topical aerosol (CANCELED) 172 (Given - Provider: Joycelyn Rose RN) ONCE PRN, Starting Wed10/11/18 at 1721, Intra-Operative (Intra-P rocedure) fentaNYL 50 mcg/mL multi-dose injection (CANCELED) 172 (Given - Provider: Joycelyn Rose RN)172 (Given - Provider: Joycelyn Rose, LINDA) ONCE PRN, Starting Wed10/11/18 at 1721, Until Wed10/11/18 at 2020, Intra- Operative (Intra-Procedure), Routine midazolam (PF) (VERSED) multi-dose injection (CANCELED) 172 (Given - Provider: Joycelyn Rose RN)172 (Given - Provider: Joycelyn Rose, RN) ONCE PRN, Starting Wed10/11/18 at 1721, Until Wed10/11/18 at 2020, Intra- Operative (Intra-Procedure), Routine documented in this encounter Care Teams Set Up Mold Technician Relationship Specialty Start Date End Date Awilda Martin PA PCP - General Family Medicine 07/06/18 10/31/19 [address] [place] [address] documented as of this encounter
--- OUTSIDE RECORDS SUMMARY | 2021-11-14 10:36 | XMS_ITS | Encounter Summary ---
:1990 Author Organization [facility] Address [address] [place] [address] Care Team Providers Name Role Phone Unknown, Provider Primary Care Provider Encounter Details Date Type Department Care Team Description 01/20/2007 Results Only [facility] - Abi Larkin PA conversion [address], [place] [id number] [phone] Social History Tobacco Use Types Packs/Day Years Used Date Never Assessed Sex Assigned at Date Recorded Not on file documented as of this encounter Plan of Treatment Not on filedocumented as of this encounter Procedures Procedure Name Priority Date/Time Associated Diagnosis Comme nts CYTOPATHOLOGY Routine 01/20/2007 0:00 EST Results for this procedure are i n the results section . documented in this encounter Results CYTOPATHOLOGY (01/20/2007 0:00 EST) Pathology Report: CYTOPATHOLOGY REPORT [facility] Reports generated via electronic interface contain lavelle ginal data; however they are lacking the format of the original re port. Caution should be taken when reading/interpreting unfo rmatted reports. Name: ? JOVITA POP ? Accession #: ? [id number] : ? 1990 (Age: 16) ??F ?Collect Date: ? 10/2006 Location: ? [facility] ? Receive Date : ? 01/21/2007 Provider: ?ABI WELLS Copy to: ? Specimen/Source: ?ThinPrep Pap Test, E ndocervix, processed on [employer] ThinPrep Imaging System, with manual evaluation Last Menstrual Period: ? 01/08/07 Hormonal/Contraceptive Status: ? Yes Other: ? HPVA - HPV testing requested if ASC-US on the current ThinPrep Pap test. ? SPECIMEN ADEQUACY ? Satisfactory for Evaluation - transformation zone component present GENERAL CATEGORIZATION ? Negative for Intraepithelial Lesion or Malignan cy ? Document reviewed and electronically signed by: ? Heather Siegel [facility](ASCP) ? Report Date: ??01/25/2007 14:06 End of Report Specimen Performing Organization Address City/State/ZIP Code Phon e Number [facility] [address] [place] [address] SERVICES [facility] [address] [place] [address] documented in this encounter Visit Diagnoses Not on filedocumented in this encounter Care Teams Vault Attendant Relationship Specialty Start Date End Date Unknown, Provider, PCP - General 02/27/09 documented as of this encounter
--- OUTSIDE RECORDS SUMMARY | 2021-11-14 10:36 | XMS_ITS | Encounter Summary ---
:1990 Author Organization [facility] [place] [address] Care Team Providers Name Role Phone Awilda Martin Primary Care Provider Reason for Visit Reason Onset Date Comments Results 10/14/2018 Encounter Details Date Type Department Care Team Description 10/14/2018 Telephone Gastroenterology at [facility] Ada Martin Results [facility] [place] [address] Social History Tobacco Use Types Packs/Day Years Used Date Current Every Day Smoker 0.5 Smokeless Tobacco: Never Used Alcohol Use Standard Drinks/Week Comments Yes 2 (1 standard drink = 0.6 oz pure alcoho l) Sex Assigned at Date Recorded Female 11/23/2020 9:22 AM EDT documented as of this encounter Miscellaneous Notes Telephone Encounter - Cydney Moreira RN - 10/17/2018 4:04 PM EDT Call placed to patient to relay results of her recent upper endoscopy: She has mild inflammation in her esophagus. The protonix 40mg qd will address this. Patient agrees with plan. She will schedule a GIF with provider as indicated in last office visit note and would like to discuss finding of hiatal hernia at that time. Telephone Encounter - OrtegaSkylar - 10/17/2018 1:47 PM EDT Pt called in looking for results. Let her know that the nurse had sent a message to Russell Christie and was waiting to hear back. Let her know I would let Russell Christie know that she had called in today Telephone Encounter - Ada Martin RN - 10/14/2018 8:36 AM EDT Patient calls the office leaving a message on the RN voicemail stating that she would like the results of her endoscopy and biopsies and to know the plan going forward. Returned call to patient to make her aware message will be forwarded to Russell Gee APRN. Patient asked if there was a plan for her hernia, made her aware that Russell would have to review results then she would be able to make recommendations. Patient verbalized understanding and will wait to hearfrom our office. documented in this encounter Plan of Treatment Not on filedocumented as of this encounter Visit Diagnoses Not on filedocumented in this encounter Care Teams Distribution Systems Serviceperson Relationship Specialty Start Date End Date Awilda Martin PA PCP - General Family Medicine 07/06/18 10/31/19 [address] [place] [address] documented as of this encounter
--- OUTSIDE RECORDS SUMMARY | 2021-11-14 10:36 | XMS_ITS | Encounter Summary ---
:1990 Author Organization [facility] Address [address] [place] [address] Care Team Providers Name Role Phone Unknown, Provider Primary Care Provider Encounter Details Date Type Department Care Team Description 08/24/2011 Results Only [facility] Roseline Jones CNM Laboratory Services - [address] [place] [address] [address] [facility] [place], [place] [id number] [phone] Social History Tobacco Use Types Packs/Day Years Used Date Never Assessed Sex Assigned at Date Recorded Not on file documented as of this encounter Plan of Treatment Not on filedocumented as of this encounter Procedures Procedure Name Priority Date/Time Associated Diagnosis Comme nts PAP TEST- RESULT Routine 08/24/2011 0:00 EDT Resu lts for this ONLY procedure are i n the results section. documented in this encounter Results PAP TEST- RESULT ONLY (08/24/2011 0:00 EDT) Pathology Report: CYTOPATHOLOGY REPORT [facility] Reports generated via electronic interface contain lavelle ginal data; however they are lacking the format of the original re port. Caution should be taken when reading/interpreting unfo rmatted reports. Name: ? JOVITA POP ? Accession #: ? [id number] : ? 1990 (Age: 21) ??F ?Collect Date: ? 08/13 Location: ? [facility] ? Receive Date : ? 08/25/2011 Provider: ?ROSELINE JONES CNM Copy to: ? Specimen/Source: ? Pap Test, Cervix/Endocervix, ThinPrep Imaging System with manual evaluation Last Menstrual Period: ? 07/06/2011 Menstrual/ Status: ? SPECIMEN ADEQUACY ? Satisfactory for Evaluation - transformation zone component present GENERAL CATEGORIZATION ? Negative for Intraepithelial Lesion or Malignan cy INTERPRETATION ? Shift in alfie present suggestive of bacterial vaginosis. ? Document reviewed and electronically signed by: ? ALBA Hughes(ASCP)(IAC) ? Report Date: ??08/26/2011 13:08 End of Report Specimen Performing Organization Address City/State/ZIP Code Phon e Number [facility] [address] [place] [address] SERVICES [facility] [address] [place] [address] documented in this encounter Visit Diagnoses Not on filedocumented in this encounter Care Teams Scientific Informatics Project Leader Relationship Specialty Start Date End Date Unknown, Provider, PCP - General 02/27/09 documented as of this encounter
--- OUTSIDE RECORDS SUMMARY | 2021-11-14 10:36 | XMS_ITS | Encounter Summary ---
:[address] [facility] Address [address] [place] [address] Care Team Providers Name Role Phone Unknown, Provider Primary Care Provider Encounter Details Date Type Department Care Team Description 03/19/2015 Results Only [facility]- Edu Barrios, MARA [address] [place], [place] [phone] (Wo rk) Social History Tobacco Use Types Packs/Day Years Used Date Never Assessed Sex Assigned at Date Recorded Not on file documented as of this encounter Plan of Treatment Not on filedocumented as of this encounter Procedures Procedure Name Priority Date/Time Associated Diagnosis Comme nts PAP TEST- RESULT Routine 03/19/2015 0:00 EST Resu lts for this ONLY procedure are i n the results section. documented in this encounter Results PAP TEST- RESULT ONLY (03/19/2015 0:00 EST) Pathology Report: CYTOPATHOLOGY REPORT [facility] Reports generated via electronic interface contain lavelle ginal data; SERVICES however they are lacking the format of the original re port. Caution should be taken when reading/interpreting unfo rmatted reports. Name: ? EVELINA POP ? Accession #: ? [id number] : ? 1990 (Age: [age]) ??F ?Collect Date: ? 2015 Location: ? [facility] ? Receive Date : ? 03/20/2015 Provider: ?EDU LYONS PA-C Copy to: ? Specimen/Source: ? Pap Test, Cervix/Endocervix, ThinPrep Imaging System with manual evaluation Last Menstrual Period: ? 02/21/15 Hormonal/Contraceptive Status: ? Tubal ligation: Bilateral 2012 ? SPECIMEN ADEQUACY ? Satisfactory for Evaluation - transformation zone component present GENERAL CATEGORIZATION ? Negative for Intraepithelial Lesion or Malignan cy ? Document reviewed and electronically signed by: ? ALBA Matthews(ASCP) ? Report Date: ??03/22/2015 11:09 End of Report Specimen Performing Organization Address City/State/ZIP Code Phon e Number [facility] [address] [place] [address] SERVICES documented in this encounter Visit Diagnoses Not on filedocumented in this encounter Care Teams Machine Sneller Relationship Specialty Start Date End Date Unknown, Provider, PCP - General 02/27/09 documented as of this encounter
--- OUTSIDE RECORDS SUMMARY | 2021-11-14 10:36 | XMS_ITS | Clinical Summary ---
:1990 Author Organization [facility] [place] [address] Care Team Providers Name Role Phone Awilda Martin Primary Care Provider Allergies Active Allergy Reactions Severity Noted Date Comments Trazodone 10/04/2018 Severe migraine s Bupropion 11/27/2020 Medications Medication Sig Dispensed Refills Start Date End Date Status escitalopram (LEXAPRO) Take 15 mg by 0 07/07/2018 Active 20 mg Tablet mouth daily. levothyroxine Take 100 mcg by 0 09/07/2018 Active (SYNTHROID) 75 mcg mouth daily. Tablet ARIPiprazole (ABILIFY) take 1 tablet by 0 09/08/2018 Active 5 mg Tablet mouth once daily LORazepam (ATIVAN) 0.5 take 1 to 2 0 09/26/2018 Active mg Tablet tablets by mouth twice a day if needed albuterol 90 Inhale 2 puffs 0 Ac tive mcg/actuation HFA into the lungs as Aerosol Inhaler needed for Wheezing. Use with spacer pantoprazole (PROTONIX) Take 1 tablet by 90 tablet 3 9 Active 40 mg Tablet, Delayed mouth daily. Release Indications: ran (E.C.)Indications: ran out, needs new out, needs new script script Additional Information Patient taking differently: 80 mg Oral DAILY, Indications: ran out, needs new script, Reported on 11/27/2020 cholestyramine (QUESTRAN) 4 Take 1 packet by mouth 30 each 11 10/25/2018 Active gram Powder in Packet daily. Additional Information Patient not taking. Reported on 11/27/2020 lamoTRIgine (LaMICtal) 200 mg Take 400 mg by mouth daily. 0 09/03/2020 Active Tablet Active Problems No known active problems Social History Tobacco Use Types Packs/Day Years Used Date Current Every Day Smoker 0.5 Smokeless Tobacco: Never Used Alcohol Use Standard Drinks/Week Comments Yes 7 (1 standard drink = 0.6 oz pure alcoho l) Sex Assigned at Date Recorded Female 11/23/2020 9:22 AM EDT Last Filed Vital Signs Vital Sign Reading Time Taken Comments Blood Pressure 116/76 08/04/2021 1:00 PM EDT Pulse 80 08/04/2021 12:30 PM EDT Temperature 36.2 ??C (97.2 ??F) 08/04/2021 10:51 AM EDT Respiratory Rate 18 08/04/2021 12:40 PM EDT Oxygen Saturation 97% 08/04/2021 1:00 PM EDT Inhaled Oxygen Concentration - - Weight 95.4 kg (210 lb 4.8 oz) 08/04/2021 10:51 AM EDT Height 166.4 cm (5' 5.5) 11/27/2020 8:45 AM EDT Body Mass Index 34.46 11/27/2020 8:45 AM EDT Plan of Treatment Health Maintenance Due Date Last Done Comments Covid-19 Vaccine (#1) 1994 Pneumococcal Vaccine: At-Risk 5-64yrs (1 - PCV) 08/11/1995 HIV screen 08/11/2007 Tdap adult 2008 Tetanus vaccine 2008 HPV test 08/11/2019 PAP Smear 08/11/2019 Influenza (Flu) vaccine (1 of 1 - Influenza standard 11/13/2021 series) Lipid Screening 11/27/2025 11/27/2020 Hepatitis C Screening Completed 11/27/2020 Insurance Payer Benefit Plan / Subscriber ID Effective Dates Phone Addre ss Type Group HEALTH PLANS HEALTH PLANS [id number] 2020-Presen [phone] [address] [place] [address] [place] [id number] 2019-Prese [phone] [address] [place] [address] Care Teams [employer] Relationship Specialty Start Date End Date Awilda Martin PA PCP - General Family Medicine 08/30/20 [address] [place], [place] [address]
--- OUTSIDE RECORDS SUMMARY | 2021-11-14 10:36 | XMS_ITS | Encounter Summary ---
:1990 Author Organization [facility] Address [address] [place] [address] Care Team Providers Name Role Phone Unknown, Provider Primary Care Provider Encounter Details Date Type Department Care Team Description 12/21/2012 Results Only [facility]- Mo Somers MD [phone] [address] [place], [place] [address] (Wo rk) Social History Tobacco Use Types Packs/Day Years Used Date Never Assessed Sex Assigned at Date Recorded Not on file documented as of this encounter Plan of Treatment Not on filedocumented as of this encounter Procedures Procedure Name Priority Date/Time Associated Diagnosis Comme nts PAP TEST- RESULT Routine 12/21/2012 0:00 EDT Resu lts for this ONLY procedure are i n the results section. documented in this encounter Results PAP TEST- RESULT ONLY (12/21/2012 0:00 EDT) Pathology Report: CYTOPATHOLOGY REPORT [facility] Reports generated via electronic interface contain lavelle ginal data; however they are lacking the format of the original re port. Caution should be taken when reading/interpreting unfo rmatted reports. Name: ? JOVITA POP ? Accession #: ? [id number] ? : ? 1990 (Age: 22) ??F ?Collect Da te: ? 12/21/2012 ? Location: ? [facility] ? Receive Date: ? 013 ? Provider: MO SANDERS MD Copy to: ? Final Report SPECIMEN ADEQUACY ? Satisfactory for Evaluation - transformation zone component present GENERAL CATEGORIZATION ? Negative for Intraepithelial Lesion or Malignan cy ?? Last Menstrual Period: 12/02/12 Other: Additional clinical information: No prior abnor mal Specimen/Source: ??Pap Test, Source Not Provided, [employer] [facility] System with manual evaluation Document reviewed and electronically signed by: ? ALBA Estes(ASCP) ? Report ??Date: 12/28/2012 14:20 HPV with Pap Test ? Date Ordered: ? 12/28/2012 ? Status: ?? Signed Out ?Date Complete: ? 12/30/2012 ? By: ??S ystem Interface ? Date Reported: ? 12/30/2012 ? Interpretation RESULT: Negative for HPV. No E6 or E7 mRNA is detected from HPV types 16,18,31,3 3,35, 39,45,51,52,56,58,59,66, and 68 by director of healthcare systems media andrae amplification. Test not validated for this type of specimen or collec tion method. The sensitivity and specificity of the test in this situation are unknown. The results should be interpret ed with caution. Comments Document reviewed and electronically signed by: ? System Interface ? Report date: 12/30/2012 By the signature above, the attending physician certif ies that he/she has personally conducted a gross and/or microscopic examin ation of the described specimens and rendered or confirmed the above diagnosi s. End of Report Specimen Performing Organization Address City/State/ZIP Code Phon e Number [facility] [address] [place] [address] SERVICES [facility] [address] [place] [address] documented in this encounter Visit Diagnoses Not on filedocumented in this encounter Care Teams Necktie Turner Relationship Specialty Start Date End Date Unknown, Provider, PCP - General 02/27/09 documented as of this encounter
--- OUTSIDE RECORDS SUMMARY | 2021-11-14 10:36 | XMS_ITS | Encounter Summary ---
:1990 Author Organization [facility] [place] [address] Care Team Providers Name Role Phone Awilda Martin Primary Care Provider Reason for Visit Consultation (Routine) - Closed Specialty Diagnoses / Procedures Referred By Contact Refer red To Contact Gastroenterology Diagnoses Fatty Liver Disease Awilda Martin, [facility] Gastro 4l Procedures Consult RUSSELL [facility] [address] [place] [address] [place] [address] Fax: Referral ID Status Reason Start Date Expiration Date Visits Requ ested Visits Authorized [id number] Closed 09/20/2020 09/20/2021 1 1 Encounter Details Date Type Department Care Team Description 11/27/2020 Office Visit Gastroenterology at [facility] Yaquelin Zepeda Elevated liver enzymes; [facility] Johnnie Wesley APRN PIERCE (nonalcoholic steatohepatitis) [place] [address] [facility] [phone] [place] [address] Social History Tobacco Use Types Packs/Day Years Used Date Current Every Day Smoker 0.5 Smokeless Tobacco: Never Used Alcohol Use Standard Drinks/Week Comments Yes 2 (1 standard drink = 0.6 oz pure alcoho l) Sex Assigned at Date Recorded Female 11/23/2020 9:22 AM EDT documented as of this encounter Last Filed Vital Signs Vital Sign Reading Time Taken Comments Blood Pressure 105/63 11/27/2020 8:45 AM EDT Pulse 84 11/27/2020 8:45 AM EDT Temperature - - Respiratory Rate - - Oxygen Saturation - - Inhaled Oxygen Concentration - - Weight 92.4 kg (203 lb 11.2 oz) 11/27/2020 8:45 AM EDT Height 166.4 cm (5' 5.5) 11/27/2020 8:45 AM EDT Body Mass Index 33.38 11/27/2020 8:45 AM EDT documented in this encounter Progress Notes Yaquelin Zepeda APRN - 11/27/2020 9:00 AM EDT Images from the original note were not included. 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 HISTORY OF PRESENT ILLNESS Jovita Pop is a 30 y.o. year old female with history of GERD, hypothyroid, bipolar disorder and elevated liver enzyme with concern for fatty liver disease. She was nauseous and vomitting for a month within 5 min of eating in August, mostly if food was acidicor she ate too much. She went to the ED and had blood work and an US done and that showed her liver tests were elevated and her US showed fatty liver. She has been mostly 3 months sober (since August 2020). Prior to August she would have 4 drinks at a time. Would binge drink over the weekend. Since August she has only drank once at a wedding. She had a sleep study, hasn't gotten results, concerned she has sleep apnea. She also believes she has high triglycerides. She has lost 30 lbs in the past year. She did weight watchers for 3 months, then lost more weight onher own afterwards. Viral risk factors: Denies IV or intranasal use of drugs, no blood transfusion before 1988, no tattoos, no piercings and no reports of incarceration ROS: Constitutional: no fatigue, fever, chills Eye: no visual changes ENT: no URI symptoms Cardio: no chest pain, palpitations Resp: no cough, no SOB GI: see HPI. No blood in stools, no nausea/vomitting : no dysuria Integumentary: no new rashes, no easy bruising Musculoskeletal: no new joint pains, swelling of ankles or legs Neuro: no new numbness, weakness in extremities PAST MEDICAL/SURGICAL HISTORY Hypothyroidism Bipolar disorder GERD Elevated triglycerides. MEDICATIONS Outpatient Medications Marked as Taking for the 11/27/20 encounter (Office Visit) with Yaquelin Zepeda APRN Medication Sig Dispense Refill ??? lamoTRIgine (LaMICtal) 200 mg Tablet Take 400 mg by mouth daily. ??? escitalopram (LEXAPRO) 20 mg Tablet Take 15 mg by mouth daily. 0 ??? levothyroxine (SYNTHROID) 75 mcg Tablet Take 100 mcg by mouth daily. 0 ??? pantoprazole (PROTONIX) 40 mg Tablet, Delayed Release (E.C.) Take 1 tablet by mouth daily. Indications: ran out, needs new script (Patient taking differently: Take 80 mg by mouth daily. Indications: ran out, needs new script) 90 tablet 3 Has Taken Lamictal for past year. ALLERGIES Allergies Allergen Reactions ??? Trazodone Severe migraines ??? Wellbutrin [Bupropion] SOCIAL HISTORY Works as an [employer] at [employer]. Has 2 children, age 11 and 8. Alcohol: Has cut down in past 3 months. Previously drinking heavily. Cigarettes: 1/2- 1/4 ppd. Has thought about quitting. FAMILY HISTORY Maternal grandfather in 40s-50s of cirrhosis, unknown Does not know about father's side of family. PHYSICAL EXAM Vitals: 11/27/20 0845 Weight: 92.4 kg (203 lb 11.2 oz) Height: 166.4 cm (5' 5.5) Body mass index is 33.38 kg/m??. Gen: Well appearing, no apparent distress. Skin: no spider angiomata, no palmar erythema, no jaundice. HEENT: Sclerae anicteric, pupils equal, round, react to light. Pharynx unremarkable. Neck is supple,no adenopathy, no thyromegaly. Chest is clear. Heart: Regular rate and rhythm. Normal S1, S2, no murmurs. Abdomen: Normal bowel sounds; soft, non distended. No obvious hepatosplenomegaly. No evidence of ascites Extremities: No edema. Neuro: alert and oriented x3, no asterixis or tremor. 08/16/2020: Ultrasound 08/16/2020: FIB-4: 0.61 - low likelihood of advanced fibrosis. Fibroscan Results: Median kPa: 4.8 kPa Mean IQR: 25% (goal is <30 %) Number of valid measurements: 12(at least 10 required) Number of invalid measurements: 0 Predicted fibrosis stage: F CAP (dB/m): 391 Estimated steatosis grade: 3/3 % hepatocytes affected: >66 % ASSESSMENT/PLAN Jovita Pop is a 30 y.o. female with history of hypothyroid, bipolar disorder, GERD, and elevated liver enzymes likely due to a combination of NAFLD and ALD. She has mostly stopped drinking alcohol in the past 3 months, but was previously drinking heavily which I suspect contributed to the hepatic steatosis on her ultrasound. She also has metabolic risk factors of obesity and elevated triglycerides. I will check today for other causes of elevated liver enzymes, including viral hepatitis, iron overload, autoimmune hepatitis and PBC. Her fibroscan today does not show any fibrosis in her liver, and her FIB-4 also shows low likelihoodof advanced fibrosis. We discussed treatment of her fatty liver disease by continuing to not drink alcohol (or drink minimal, with no binge drinking more than 2 drinks at a time, no more than 7 drinks in a week). Additionally, weight loss can cause fat to come out of the liver. She is already working on [employer] and has lost 15% of her TBW in the past year. We discussed a goal of 10-15% of TBW loss, and keeping that weight off. We also discussed minimizing added sugars and processed carbohydrates to help with treatment of her triglycerides. For ongoing followup, I would recommend that she have her liver tests checked with her primary care provider annually. I would also recommend following her FIB-4 (https://www.hepatitisc.uw.edu/page/clinical-calculators/fib-4) , which uses her Age, AST, ALT and platelets and if this becomes elevated over 1.3, that could suggest higher likelihood for fibrosis in her liver and I would recommend that shebe referred back to hepatology for a follow up visit. Plan: - Blood work today - Continue to work on diet, exercise, and minimizing alcohol use. - Follow up with PCP and calculate FIB-4 annually. If FIB-4 becomes higher than 1.3, would recommendfollow up in hepatology. Yaquelin Zepeda APRN Section of Gastroenterology [place] [address] Copy: RUSSELL Sandoval [address] / [place] [address] documented in this encounter Procedure Notes Yaquelin Zepeda APRN - 11/27/2020 9:00 AM EDTAssociated Order(s): FIBROSCAN Procedure(s): FIBROSCAN Pre-Procedure Diagnose(s): Elevated liver enzymes [facility] Liver Fibrosis Assessment Report Indication: NALFD/ALD Performed by: YAQUELIN ZEPEDA APRN Procedure: Vibration Controlled Transient Elastography (VCTE) or Fibroscan [place] Protocol: Patient's identity, procedure and site were verified, confirmatory pause performed. Discussed procedure including risks and potential complications. Questions answered. Patient verbalizes understanding and wishes to proceed with Fibroscan assessment. Patient was placed in the supine position with right arm in maximum abduction to allow optimal exposure of right lateral abdomen. Patient was briefly assessed. Testing was performed in the mid-axillarylocation. 50Hz Shear Wave pulses were applied and the resulting Shear Wave and Propagation Speed wasdetected with a 3.5MHz ultrasonic signal, using the Fibroscan probe. Skin to liver capsule distance and liver parenchyma were accessed during the entire examination with the Fibroscan probe. Patient was instructed to breathe normally and abstain from sudden movements during the procedure. At least tenSheer Waves were produced; individual measurements of each Shear Wave were calculated. Patient tolerated the procedure well with no complications. Fibroscan Results: Fibroscan Results: Median kPa: 4.8 kPa Mean IQR: 25% (goal is <30 %) Number of valid measurements: 12(at least 10 required) Number of invalid measurements: 0 Predicted fibrosis stage: F CAP (dB/m): 391 Estimated steatosis grade: 3/3 % hepatocytes affected: >66 % Interpretation: Based on this Fibroscan result, history, clinical examination and review of laboratory and radiological data, this patient likely has stage 0-1 liver fibrosis and grade 3 steatosis affecting over 66% of hepatocytes. documented in this encounter Plan of Treatment Not on filedocumented as of this encounter Procedures Procedure Name Priority Date/Time Associated Comments Diagnosis HC HEPATITIS C Routine 11/27/2020 9:58 AM Elevated liver Resul ts for this ANTIBODY EDT enzymes procedure are i n the results section. HC IRON BINDING Routine 11/27/2020 9:58 AM Elevated liver Resu lts for this CAPACITY EDT enzymes procedure are i n the results section. HC HEPATITIS A, TOTAL Routine 11/27/2020 9:58 AM Elevated live r Results for this EDT enzymes procedure are i n the results section. HC HEPATITIS B CORE AB Routine 11/27/2020 9:58 AM Elevated tucker er Results for this EDT enzymes procedure are i n the results section. HC PCH SMOOTH MUSCLE Routine 11/27/2020 9:58 AM Elevated liver Results for this AB, SERUM EDT enzymes procedure are i n the results section. HC HEPATITIS B SURFACE Routine 11/27/2020 9:58 AM Elevated tucker er Results for this AB EDT enzymes procedure are i n the results section. HC HEPATITIS B SURFACE Routine 11/27/2020 9:58 AM Elevated tucker er Results for this AG EDT enzymes procedure are i n the results section. HC PCH ANATITRE Routine 11/27/2020 9:58 AM Elevated liver Resu lts for this (ANDPATTERN) EDT enzymes procedure are i n the results section. HC VENIPUNCTURE Routine 11/27/2020 9:58 AM Elevated liver Resu lts for this EDT enzymes procedure are in [place] (nonalcoholic the resul ts steatohepatitis) section. HC FERRITIN, SERUM Routine 11/27/2020 9:58 AM Elevated liver R esults for this EDT enzymes procedure are i n the results section. LIPID PANEL (REFLEX Routine 11/27/2020 9:58 AM Elevated liver Results for this DIRECT LDL) EDT enzymes procedure are in [place] (nonalcoholic the resul ts steatohepatitis) section. COMPREHENSIVE Routine 11/27/2020 9:58 AM Elevated liver Result s for this METABOLIC PANEL EDT enzymes procedure ar e in (NON-FASTING) the results section. [id number] Routine 11/27/2020 9:00 AM Elevated liver Results for this EDT enzymes procedure are i n the results section. documented in this encounter Results Hemoglobin A1c (11/27/2020 9:58 AM EDT) athologist Signature Hemoglobin A1C 5.3 4.3 - [address].6 [facility] Comment: Reference Range: 4.3 - 5.6% 5.7 - 6.4% - Increased Risk of Developin g Diabetes Mellitus >= 6.5% - Consistent with diagnosis of D iabetes Mellitus In the absence of hyperglycemia (i.e. pl asma glucose > 200 mg/dL) or classic symptoms of hyperglycemia a repeat measu rement of HbA1c should be performed on a separate sample to confirm the diagnos is. Diagnosis and Classification of Diabetes Mellitus, Diabetes Care 2013; 36: Suppl. 1, Q77-60 Est Avg Gluc 105 mg/dL [facility] Comment: eAG equivalents for HbA1c percentages: HbA1c(%) ?eAG(mg/dL) 6.0 ?126 6.5 ?140 7.0 ?154 7.5 ?169 8.0 ?183 8.5 ?197 9.0 ?212 9.5 ?226 10.0 ? 240 Limitations: The eAG calculation has not been validated on women, individuals below 18 years old and above 70 years old, and individuals with hemoglobinopathies. Additional resources are available on [facility] ADA website. Ron BROWN, Ana J, Tom R, et al. ??Tr anslating the A1C assay into estimated average glucose values. ??Diabetes Care 2008:31(8):7248-2764. Specimen Anatomical Collection Method Collection Time Receive d Time (Source) Location / / Volume Laterality Blood 11/27/2020 9:58 AM EDT 10:04 AM EDT Resulting Agency Comment Spec In Lab Yaquelin Zepeda REPAIR ELECTRIC MOTOR ASSEMBLER CHEMISTRY ORDERABLES Performing Organization Address City/State/ZIP [place] [address] Lipid Panel (Reflex Direct LDL) (11/27/2020 9:58 AM EDT) athologist Signature Chol, Total 269 mg/dL [facility] Comment: Lower Risk: <200 mg/dL Average Risk: 200-239 mg/dL Higher Risk: >tx=740 mg/dL Triglycerides 207 mg/dL [facility] Comment: Average Risk/Lower Risk: <150 mg/dL Borderline High Risk: 150-199 mg/dL High Risk: 200-499 mg/dL Very High Risk: >jo=574 mg/dL HDL 33 mg/dL [facility] Comment: Males: ?? Higher Risk: <40 mg/dL Females: ?? Higher Risk: <50 mg/dL LDL Cholesterol 195 mg/dL [facility] Comment: Lowest Risk: <100 mg/dL Lower Risk: 100-129 mg/dL Borderline High Risk: 130-159 mg/dL High Risk: 160-189 mg/dL Very High Risk: >gw=304 mg/dL Chol/HDL Ratio 8.[address] [facility] Lipid Interpretation See Note [facility] Comment: Lipid management should be guided by a p atient? s ASCVD risk, goals and preferences. ACC/AHA Guidelines recommend high intens ity statin if clinical ASCVD or LDL greater than or equal to 190 mg/dL. http://Core Diagnosticsurl.com/QWB-LYD-Zodwcvilq Adults aged 40-75 with LDL 70-189 mg/dL should have their 10 year ASCVD risk estimated with the ACC/AHA ASCVD risk es timator http://tools.acc.org/OEHZK-Xjno-Twxdpsyr r/ Statin should be discussed if risk great er than or equal to 7.5% in non-diabetics. With diabetes, moderate i ntensity statin is recommended if risk less than 7.5%, high intensity if risk g reater than or equal to 7.5%. Annual lipid monitoring on statins is no t necessary. Evaluate secondary causes of Triglycerid es greater than 500 mg/dL or LDL greater than 190 mg/dL: See table 6 of A CC/AHA Guideline. Lifestyle modification is a critical com ponent of ASCVD risk reduction. Specimen Anatomical Collection Method Collection Time Receive d Time (Source) Location / / Volume Laterality Blood 11/27/2020 9:58 AM EDT 10:04 AM EDT Resulting Agency Comment Spec In Lab Yaquelin Zepeda APRN CHEMISTRY ORDERABLES Performing Organization Address City/[facility]/ZIP [facility] [place] [address] Hepatitis A Antibody, Total (11/27/2020 9:58 AM EDT) Analysis Performed At Patho logist Time Signature Hepatitis A Ab Negative Negative [facility] LABORATORY Specimen Anatomical Collection Method Collection Time Receive d Time (Source) Location / / Volume Laterality Blood 11/27/2020 9:58 AM EDT 10:04 AM EDT Resulting Agency Comment Spec In Lab Yaquelin Zepeda APRN IMMUNOLOGY ORDERABLES Performing Organization Address City/[facility]/[place] [address] Hepatitis C Antibody (11/27/2020 9:58 AM EDT) Analysis Performed At Patho logist Time Signature Hepatitis C Ab Negative Negative [facility] Specimen Anatomical Collection Method Collection Time Receive d Time (Source) Location / / Volume Laterality Blood 11/27/2020 9:58 AM 1 EDT 10:04 AM EDT Resulting Agency Comment Spec In Lab Yaquelin Zepeda APRN IMMUNOLOGY ORDERABLES Performing Organization Address City/[facility]/ZIP [facility] [place] [address] Ferritin (11/27/2020 9:58 AM EDT) P athologist Signature Ferritin 59 15 - 150 [facility] ng/mL [facility] Comment: Pediatric reference ranges not verified at [facility], interpret with caution. Reference ranges for females greater mehnaz n 50 years of age approach values for men, i.e., 30-400 ng/mL. Specimen Anatomical Collection Method Collection Time Receive d Time (Source) Location / / Volume Laterality Blood 11/27/2020 9:58 AM EDT 10:04 AM EDT Resulting Agency Comment Spec In Lab Yaquelin Zepeda APRN CHEMISTRY ORDERABLES Performing Organization Address City/State/ZIP Code Phon e Number [address] (ABNORMAL) Iron and TIBC (11/27/2020 9:58 AM EDT) athologist [facility] Iron 50 30 - 150 [facility] mcg/dL [facility] TIBC 328 250 - 450 [facility] m[facility]/dL [facility] Iron Saturation 15 (L) 20 - 50 % [facility] Specimen Anatomical Collection Method Collection Time Receive d Time (Source) Location / / Volume Laterality Blood 11/27/2020 9:58 AM EDT 10:04 AM EDT Resulting Agency Comment Spec In Lab Yaquelin Zepeda APRN CHEMISTRY ORDERABLES Performing Organization Address City/[facility]/[place] [address] Smooth Muscle Antibody (11/27/2020 9:58 AM EDT) athologist [facility] Sm Muscle Ab Negative Negative [facility] Comment: Negative: No further testing will be per formed ADDITIONAL INFORMATIO N This test was developed and its performa nce characteristics determined by [facility] in a manner co nsistent with CLIA requirements. This test has not been rene ared or approved by the U.S. Food and Drug Administration. Test Performed by: [facility] [address] [address] [address] [employer]: Shane Alfaro M.D. Ph. D.; CLIA# [id number] Specimen Anatomical Collection Method Collection Time Receive d Time (Source) Location / / Volume Laterality Blood 11/27/2020 9:58 AM 1 EDT 11:47 AM EDT Resulting Agency Comment Spec In Lab Yaquelin Zepeda APRN IMMUNOLOGY ORDERABLES Performing Organization Address City/State/ZIP Code [place] [address] [facility] LAB[address] Drive ALEXX (11/27/2020 9:58 AM EDT) Component Value Ref Test Analysis Performed At [facility] Range Method Time Signature Antinuclear Ab MO Test ?Result ? Flag ??Unit ??RefValue [facility] Antinuclear Ab, HEp-2 ? <1:80 (Negative) ? <1:80 (Negative) HOSPITAL ??Substrate, S LABORATORY ? ADDITIONAL INFORMATION ------ ?Method: Immunofluorescence using HEp-2 cellular substr ate. ?Test Performed by: ?[facility] ?[address] [place] [address] ?[employer]: Shane Alfaro M.D. Ph.D.; CLIA# [id number] Specimen Anatomical Collection Method Collection Time Receive d Time (Source) Location / / Volume Laterality Blood 11/27/2020 9:58 AM 1 EDT 11:47 AM EDT Resulting Agency Comment Spec In Lab Yaquelin Allisonvanita ZHU IMMUNOLOGY ORDERABLES Performing Organization Address City/[facility]/[place] [address] Hepatitis B Core Antibody, Total (11/27/2020 9:58 AM EDT) Analysis Performed At Patho logist Time Signature Hep B Core Ab Negative Negative [facility] Specimen Anatomical Collection Method Collection Time Receive d Time (Source) Location / / Volume Laterality Blood 11/27/2020 9:58 AM EDT 10:04 AM EDT Resulting Agency Comment Spec In Lab Yaquelin Zepeda REPAIR [employer]LECT[employer]OR ASSEMBLER CHEMISTRY ORDERABLES Performing Organization Address City/[facility] [place] [address] Hepatitis B Surface Antibody (11/27/2020 9:58 AM EDT) P athologist Signature HepB Surface >800.0 IU/L [facility]ORY Comment: HepB Surface Ab Quant: Unvaccinated: < 8.5 IU/L Vaccinated: > 11.5 IU/L HepB Surface Ab Positive [facility] Comment: Patient is considered to be immune to HB V infection. Expected Results: Vaccinated: Positive Unvaccinated: Negative Specimen Anatomical Collection Method Collection Time Receive d Time (Source) Location / / Volume Laterality Blood 11/27/2020 9:58 AM EDT 10:04 AM EDT Resulting Agency Comment Spec In Lab Yaquelin Allisonvanita ZHU IMMUNOLOGY ORDERABLES Performing Organization Address City/[facility] [place] [address] Hepatitis B Surface Antigen (11/27/2020 9:58 AM EDT) Analysis Performed At Patho logist Time Signature HepB Surface Negative Negative [facility] LABORATORY Specimen Anatomical Collection Method Collection Time Receive d Time (Source) Location / / Volume Laterality Blood 11/27/2020 9:58 AM 1 EDT 10:04 AM EDT Resulting Agency Comment Spec In Lab Yaquelin Zepeda MARKO CHEMISTRY ORDERABLES Performing Organization Address City/State/ZIP [place] [address] Comprehensive metabolic panel (non-fasting) (11/27/2020 9:58 AM EDT) P athologist Signature Glucose Lvl 99 65 - 199 [facility] mg/dL [facility] Comment: Diabetes: >=200 mg/dL plus symp toms BUN 9 8 - 18 mg/dL [facility] Creatinine 0.76 0.70 - 1.20 mg/dL [facility] Sodium 136 135 - 145 mmol/L [facility] Potassium 4.3 3.5 - 5.0 mmol/L [facility] Comment: Please note: ??Patients with WBC >100,00 0 may have falsely elevated Potassium levels. ??For accurate Potassium quantif ication in these patients send serum separator tube (gold top) for subsequent determinations. ??Contact the Clinical Chemistry Laboratory if there are any qu estions. Chloride 102 98 - 107 mmol/L [facility] CO2 26 22 - 31 mmol/L [facility] Anion Gap 8 5 - 15 mmol/L [facility] Calcium 9.8 8.5 - 10.5 mg/dL [facility] Total Protein 7.7 6.1 - 8.0 gm/dL [facility] Albumin 4.8 3.2 - 5.2 gm/dL [facility] AST 15 0 - 30 unit/L [facility] ALT 22 0 - 30 unit/L [facility] Alk Phos 63 35 - 105 unit/L [facility] Total Bilirubin 0.4 0.2 - 1.3 mg/dL [facility] Estimated GFR 105 >=60 mL/min/1.73 m?? [facility] Comment: This patient? s estimated glomerular filtration rate (eGFR) is between 105 mL/min/1.73 m2 (patients with less muscl e mass) and 121 mL/min/1.73 m2 (patients with more muscle mass) as dete rmined by the CKD-EPI equation. Assessment of eGFR is not appropriate wh en creatinine concentrations are rapidly changing. For clinical decisions where creatinine clearance will affect therapy, a 24-hour urine creatinine celina cesia may be advised. Assignment of CKD stage 1 - 5 for patien ts with an eGFR near the transition point between stages may be based on cli nical assessment of muscle mass and symptoms in addition to eGFR. Specimen Anatomical Collection Method Collection Time Receive d Time (Source) Location / / Volume Laterality Blood 11/27/2020 9:58 AM EDT 10:04 AM EDT Resulting Agency Comment Spec In Lab Yaquelin Zepeda APRN CHEMISTRY ORDERABLES Performing Organization Address City/State/[place] [address] [id number] (11/27/2020 9:00 AM EDT) Narrative Yaquelin Zepeda APRN - 11/27/2020 9:0 0 AM EDT Yaquelin Zepeda APRN ? 11/27/2020 ??4:03 PM [facility] Liver Fibrosis Asses sment Report Indication: ?? NALFD/ALD Performed by: ??YAQUELIN ZEPEDA APRN Procedure: Vibration Controlled Transien t Elastography (VCTE) or Fibroscan [place] Protocol: Patient's identity, procedure and site were verified, confirmatory pause performed. Discussed procedure including risks and potential complicati ons. Questions answered. Patient verbalizes understanding and wis hes to proceed with Fibroscan assessment. Patient was placed in the supine positio n with right arm in maximum abduction to allow optimal expos ure of right lateral abdomen. Patient was briefly assessed. T esting was performed in the mid-axillary location. 50Hz Shear Wa ve pulses were applied and the resulting Shear Wave and Propaga tion Speed was detected with a 3.5MHz ultrasonic signal, using t he Fibroscan probe. Skin to liver capsule distance and liver pare nchyma were accessed during the entire examination with the F ibroscan probe. Patient was instructed to breathe normally and a bstain from sudden movements during the procedure. At least ten Sheer Waves were produced; individual measurements of eac h Shear Wave were calculated. Patient tolerated the proced ure well with no complications. Fibroscan Results: Fibroscan Results: Median kPa: 4.8 ??kPa Mean IQR: 25% (goal is <30 %) Number of valid measurements: ??12(at le ast 10 required) Number of invalid measurements: 0 Predicted fibrosis stage: F CAP (dB/m): 391 Estimated steatosis grade: 3/3 % hepatocytes affected: >66 % Interpretation: Based on this Fibroscan result, history, clinical examination and review of laboratory and radiological da ta, this patient likely has stage 0-1 liver fibrosis and grade 3 steatosis affecting over 66% of hepatocytes. ?? Yaquelin Zepeda APRN PROCEDURE/MINOR SURGICAL ORD ERABLES documented in this encounter Visit Diagnoses Diagnosis Elevated liver enzymes Nonspecific elevation of levels of trans aminase or lactic acid dehydrogenase (LDH) PIERCE (nonalcoholic steatohepatitis) Other chronic nonalcoholic liver disease documented in this encounter Care Teams Fire Battalion Chief Relationship Specialty Start Date End Date Awilda Martin PA PCP - General Family Medicine 08/30/20 [address] [place] [address] documented as of this encounter
--- OUTSIDE RECORDS SUMMARY | 2021-11-14 10:36 | XMS_ITS | Encounter Summary ---
:1990 Author Organization [facility] Address [address] [place] [address] Care Team Providers Name Role Phone Unknown, Provider Primary Care Provider Encounter Details Date Type Department Care Team Description 07/09/2009 Results Only [facility] Mahin Vargas, PURCHASING DIRECTOR Laboratory Services - [address] [place], [place] [address] [facility] [address] [place], [place] [id number] [phone] Social History Tobacco Use Types Packs/Day Years Used Date Never Assessed Sex Assigned at Date Recorded Not on file documented as of this encounter Plan of Treatment Not on filedocumented as of this encounter Procedures Procedure Name Priority Date/Time Associated Diagnosis Comme nts CYTOPATHOLOGY Routine 07/09/2009 0:00 EDT Results for this procedure are i n the results section . documented in this encounter Results CYTOPATHOLOGY (07/09/2009 0:00 EDT) Pathology Report: CYTOPATHOLOGY REPORT ? [place] [facility] ? LAB Reports generated via electr onic interface contain original data; ? however they are lacking the format of the original report. ? Caution should be taken when reading/interpreting unformatted reports. ? Name: ? JOVITA POP D ? Accession #: ? [id number] ? : ? 1990 (Age: 18) ??F ?Collect Date: ? 07/09/2009 ? Location: ? [facility] ? Receive Date: ? 07/10/2009 ? Provider: ?REGINA LEONARDG OOD PURCHASING DIRECTOR ? Copy to: ? Specimen/Source: ? Pap Test, Cervix/Endocervix, ThinPrep Imaging System ? with manual evaluation ? Last Menstrual Period: ? 04/16/10 ? Hormonal/Contraceptive Statu s: ? Intrauterine device: Pt has Mirena ? SPECIMEN ADEQUACY ? Satisfactory for Eval uation ? - transformation zone compon ent present ? GENERAL CATEGORIZATION ? Negative for Intraepi thelial Lesion or Malignancy ? Document reviewed and electr onically signed by: ? Kandace [place], [place]( CP) ? Report Date: ??05/05/ 2010 07:20 ? End of Report ? Specimen Performing Organization Address City/State/[facility] Code Phon e Number [facility] [address] [place] [address] SERVICES [facility] [address] [place] [address] documented in this encounter Visit Diagnoses Not on filedocumented in this encounter Care Teams English Professor Relationship Specialty Start Date End Date Unknown, Provider, PCP - General 02/27/09 documented as of this encounter
--- OUTSIDE RECORDS SUMMARY | 2021-11-14 10:36 | XMS_ITS | Encounter Summary ---
:1990 Author Organization [facility] [place] [address] Care Team Providers Name Role Phone Awilda Martin Primary Care Provider Encounter Details Date Type Department Care Team Description 04/02/[address] [facility] [place] [address] Social History Tobacco Use Types Packs/Day Years Used Date Current Every Day Smoker 0.5 Smokeless Tobacco: Never Used Alcohol Use Standard Drinks/Week Comments Yes 2 (1 standard drink = 0.6 oz pure alcoho l) Sex Assigned at Date Recorded Female 11/23/2020 9:22 AM EDT documented as of this encounter Miscellaneous Notes Telephone Encounter - Manju Barbosa E - 04/02/2021 10:49 AM EST Jovita Blair Donn [id number] Diagnosis/Indication: Gastritis 1. Have you ever had a/an Upper Endoscopy before? Yes: Date 2018 If yes, did you have any problems with the procedure? No What type of sedation was used: None 2. Do you take any blood thinners or have you been diagnosed with a bleeding disorder that increasesyour risk of bleeding with procedures? No 3. Do you have a Pacemaker or Defibrillator device? No 4. Are you a diabetic? No 5. Do you have any Allergies to Eggs, Latex or Medications? Yes: EDH 6. Do you take any Oral Iron Supplements (Including multi-vitamins)? Yes (Multivitamin) 7. Do you have a history of three or more abdominal surgeries? No 8. Have you had a problem with sedation or anesthesia? No 9. Do you use a c-pap machine or oxygen tank? Neither 10. Do you take prescription narcotic pain medications, including suboxone or methodone? No 11. Do you have a preference regarding the gender of your provider? No Preference 12. Is there any other information you would like to us to note for the provider and nursing team who will perform your case? No 13. Say to patient: You must have a responsible republican who will drive you to your procedure, stay on campus for the entire duration of your procedure, and drive you home from your procedure? *Please Verify the height and weight, and adjust if height and/or weight have changed* Estimated body mass index is 33.38 kg/m?? as calculated from the following: Height as of 11/27/20: 166.4 cm (5' 5.5). Weight as of 11/27/20: 92.4 kg (203 lb 11.2 oz). Age:30 y.o. documented in this encounter Plan of Treatment Not on filedocumented as of this encounter Visit Diagnoses Not on filedocumented in this encounter Care Teams Internal Revenue Service Agent Relationship Specialty Start Date End Date Awilda Martin PA PCP - General Family Medicine 08/30/20 [address] [place] [address] documented as of this encounter
--- OUTSIDE RECORDS SUMMARY | 2021-11-14 10:36 | XMS_ITS | Encounter Summary ---
:1990 Author Organization [facility] [place] [address] Care Team Providers Name Role Phone Awilda Martin Primary Care Provider Encounter Details Date Type Department Care Team Description 10/11/2018 [place] [facility] [place]aurabh Jara, UPPER [facility] Johnnie V[place] [address] [facility] [phone] GASTRO[address]Y [address]PT. [place] [id number] Social History Tobacco Use Types Packs/Day Years Used Date Current Every Day Smoker 0.5 Smokeless Tobacco: Never Used Alcohol Use Standard Drinks/Week Comments Yes 2 (1 standard drink = 0.6 oz pure alcoho l) Sex Assigned at Date Recorded Female 11/23/2020 9:22 AM EDT documented as of this encounter Last Filed Vital Signs Vital Sign Reading Time Taken Comments Blood Pressure 115/73 10/11/2018 4:06 PM EDT Pulse 83 10/11/2018 4:06 PM EDT Temperature - - Respiratory Rate - - Oxygen Saturation 93% 10/11/2018 4:06 PM EDT Inhaled Oxygen Concentration - - [...] better as expected. Wednesday-Wednesday Same Day Endo [phone] 7a-8p Otherwise contact [phone] and ask to speak to the cleaner industrial electrical control assembler Follow-up care is a peres part of [...] Jara MD - 10/11/2018 5:32 PM EDT [facility] Operative Note Patient Name: Jovita Pop : [id number] MR#: [id number] Case Date: 10/11/2018 Surgeon: Surgeon(s) and Role: [...] 5:32 PM 9 5:32 EDT PM EDT [facility] - 10/11/2018 5:32 PM EDT Specimen requisition ordered. ??Separate Pathology report to follow Saurabh Vergara MD PATHOLOGY/CYTOLOGY ORDERABLE S Performing Organization Address City/[facility]/[place] [address] Surgical Pathology Report (10/11/2018 5:29 PM EDT) Component Value Ref Test Analysis Performed At [facility] Method Time Signature Surgical [id number] ? Location: 4T; EA10; [facility] Report The signing pathologist has (i) examined the relevant preparation(s) for the [facility] specimen(s) and (ii) rendered or confirmed the diagnosis(es) . HOSPITAL LABORATORY . ?Surgic al Pathology DIAGNOSIS Esophagus, ??biopsy: - ??Squamocolumnar junctiona l mucosa (cardia type) with mild chronic inflammation. There is no evidence of intestinal metaplasia. Electronically signed by: ??Jose Bazan MD Verified: ??10/13/2018 ?Pathologist Performed at: ??-[facility] Dept. [place]ology, [place], [place] CLINICAL INFORMATION Specimen Submitted: A - [...] MD PATHOLOGY/CYTOLOGY ORDERABLE S Performing Organization Address City/[facility]/[place] [address] [facility] [address] UPPER GI ENDOSCOPY (10/11/2018 5:06 PM EDT) Component Value Ref Test Analysis Performed At [facility] Method Time Signature UPPER GI [facility] ENDOSCOPY Endoscopy Procedure Date: 10/11/2018 5:06 PM ? Patient Name: Jovita Pop ? Date of : 1990 ? Age: 28 ? Order #: [id number] ? Instrument Name: [id number] ? Procedure: ? Upper GI endoscopy Indications: ? Follow-up of gastro-esophageal refl ux ? disease Providers: ? Saurabh Jara MD, Joycelyn ? Milton, LINDA, Digna Dumont , ? Epic Director Referring MD: ?RUSSELL Camarillo Medicines: ? Midazolam 3 mg [...] [facility] documented in this encounter Visit Diagnoses Diagnosis Dyspepsia Dyspepsia and other specified disorders of function of stomach Gastroesophageal reflux disease, esophag itis presence not specified documented in this encounter Administered Medications Inactive Administered Medications - up to 3 most recent administrations Medication Order MAR Action Action Date Dose Rate Site benzocaine (TOPEX) 20 % topical Given 10/11/2018 5:21 PM EDT 1 e ach aerosol ONCE PRN, Starting on Wed10/11/18 at 1721, Until Wed10/11/18 at 2019, Intra-Operative (Intra-Procedure) fentaNYL 50 mcg/mL multi-dose injection Given 10/11/2018 5:25 PM EDT 50 mcg ONCE PRN, Starting on e 10/11/18 at 1721, Until Wed10/11/18 at 2020, Intra-Operative (Intra-Procedure), Routine Given 10/11/2018 5:21 PM EDT 75 mcg lactated ringers infusion New Bag 10/11/2018 4:19 PM EDT 100 mL/hr 100 mL/hr 100 mL/hr, Intravenous, CONTINUOUS, Starting on Wed10/11/18 at 1630, Until Wed10/11/18 at 2020, Endoscopy (Day of Procedure) midazolam (PF) (VERSED) multi-dose injec tion Given 10/11/2018 5:25 PM EDT 1 mg ONCE PRN, Starting on 10/11/18 at 1721, Until Tu10/11/18 at 2019, Intra-Operative (Intra-Procedure), Routine Given 10/11/2018 5:21 PM EDT 2 mg documented in this encounter Active and Recently Administered Medications Times are shown in EDT. Continuous Medication Order 10/09/2018 10/10/2018 10/11/2018 lactated ringers infusion 1619 ( New Bag - Provider: Lucrecia Lopez RN) 100 mL/hr, at 100 mL/hr, Intravenous, CO NTINUOUS, Starting e 10/11/18 at 1630, Until Wed10/11/18 at 2020, Endo (Day of Procedure) PRN Medication Order 10/09/2018 10/10/2018 10/11/2018 benzocaine (TOPEX) 20 % topical aerosol (CANCELED) 1721 (Given - Provider: Joycelyn Rose, LINDA) ONCE PRN, Starting Wed10/11/18 at 1721, Intra-Operative (Intra-P rocedure) fentaNYL 50 mcg/mL multi-dose injection (CANCELED) 1720 (Given - Provider: Joycelyn Rose, LINDA)172 (Given - Provider: Joycelyn Rose, RN) ONCE PRN, Starting Wed10/11/18 at 172, Until Wed10/11/18 at 2019, Intra- Operative (Intra-Procedure), Routine midazolam (PF) (VERSED) multi-dose injection (CANCELED) 1720 (Given - Provider: Joycelyn Rose RN)1724 (Given - Provider: Joycelyn Rose, LINDA) ONCE PRN, Starting Wed10/11/18 at 1721, Until Wed10/11/18 at 2019, Intra- Operative (Intra-Procedure), Routine documented in this encounter Care Teams Clutch Assembler Relationship Specialty Start Date End Date Awilda Martin PA PCP - General Family Medicine 07/06/18 10/31/19 [address] [place] [address] documented as of this encounter
--- OUTSIDE RECORDS SUMMARY | 2021-11-14 10:36 | XMS_ITS | Encounter Summary ---
:1990 Author Organization [facility] [place] [address] Care Team Providers Name Role Phone Awilda Martin Primary Care Provider Encounter Details Date Type Department Care Team Description 06/25/2021 [place] [facility] [facility] [place] [address] Social History Tobacco Use Types Packs/Day Years Used Date Current Every Day Smoker 0.5 Smokeless Tobacco: Never Used Alcohol Use Standard Drinks/Week Comments Yes 2 (1 standard drink = 0.6 oz pure alcoho l) Sex Assigned at Date Recorded Female 11/23/2020 9:22 AM EDT documented as of this encounter Miscellaneous Notes Telephone Encounter - Mayelin Mata - 06/25/2021 8:30 AM EDT Jovita Blair Donn [id number] Diagnosis/Indication: GASTRITIS 1. Have you ever had a/an Upper Endoscopy before? Yes: Date 10/11/2018 If yes, did you have any problems with the procedure? No What type of sedation was used: IV Conscious Sedation 2. Do you take any blood thinners or have you been diagnosed with a bleeding disorder that increasesyour risk of bleeding with procedures? No 3. Do you have a Pacemaker or Defibrillator device? No 4. Are you a diabetic? No 5. Do you have any Allergies to Eggs, Latex or Medications? Yes: SEE EDH 6. Do you take any Oral Iron Supplements (Including multi-vitamins)? No 7. Do you have a history of three or more abdominal surgeries? No 8. Have you had a problem with sedation or anesthesia? No 9. Do you use a c-pap machine or oxygen tank? C-Pap 10. Do you take prescription narcotic pain medications, including suboxone or methodone? No 11. Do you have a preference regarding the gender of your provider? No Preference 12. Is there any other information you would like to us to note for the provider and nursing team who will perform your case? No 13. Say to patient: You must have a responsible green party who will drive you to your procedure, [...] on filedocumented in this encounter Care Teams Merchandise Supervisor Relationship Specialty Start Date End Date Awilda Martin PA PCP - General Family Medicine 08/30/20 [address] [place] [address] documented as of this encounter
--- OUTSIDE RECORDS SUMMARY | 2021-11-14 10:36 | XMS_ITS | Encounter Summary ---
:1990 Author Organization [facility] Address [address] [place] [address] Care Team Providers Name Role Phone Unavailable Primary Care Provider Unavailable Encounter Details Date Type Department Care Team Description 06/14/2008 Before [facility] - Mo Ring MD Converted Visit [facility] ([facility] [address] [place] [address] [address] [place] [address] (Wo rk) Social History Tobacco Use Types Packs/Day Years Used Date Never Assessed Sex Assigned at Date Recorded Not on file documented as of this encounter Plan of Treatment Not on filedocumented as of this encounter Procedures Procedure Name Priority Date/Time Associated Diagnosis Comme [facility] CYTOPATHOLOGY Routine 06/14/2008 0:00 EDT Results for this procedure are i n the results section . documented in this encounter Results CYTOPATHOLOGY (06/14/2008 0:00 EDT) Pathology Report: CYTOPATHOLOGY REPORT ? [facility] [facility] ? LAB Reports generated via AirClic interface contain original data; ? however they are lacking the format of the original report. ? Caution should be taken when reading/interpreting unformatted reports. ? Name: ? EDUARDO, EVELINA D ? Accession #: ? [id number] ? : ? 1990 (Age: 17) ??F ?Collect Date: ? 06/14/2008 ? Location: ? [facility] ? Receive Date: ? 06/18/2008 ? Provider: ?MO READY MD ? Copy to: ? Specimen/Source: ? Pap Test, Cervix/Endocervix, ThinPrep Imaging System ? with manual evaluation ? Last Menstrual Period: ? 1/11/09 ? Menstrual/ Status: ? Other: ? HPVA - HPV testing requested if ASC-US on the current ThinPrep Pap test. ? SPECIMEN ADEQUACY ? Satisfactory for Eval uation ? - transformation zone compon ent present ? GENERAL CATEGORIZATION ? Negative for Intraepi thelial Lesion or Malignancy ? Document reviewed and electr onically signed by: ? Aviva Forman, CT(ASCP) ? Report Date: ??04/08/ 2009 08:54 ? End of Report ? Specimen Performing Organization Address City/State/ZIP Code Phon e Number [facility] [address] [place] [address] SERVICES [facility] [address] [place] [address] documented in this encounter Visit Diagnoses Not on filedocumented in this encounter
--- OUTSIDE RECORDS SUMMARY | 2021-11-14 10:36 | XMS_ITS | Encounter Summary ---
:1990 Author Organization [facility] Address [facility] [place] [address] Care Team Providers Name Role Phone Awilda Martin Primary Care Provider Reason for Visit Consultation (Routine) - Specialty Diagnoses / Procedures Referred By Contact Refer red To Contact Gastroenterology Diagnoses ABDOMINAL BLOATING, CHRONIC DIARRHEA Awilda Martin, [facility] [place] [facility] 4[facility] PA [facility] [address] [place] [address] [place] [address] Fax: Referral ID Status Reason Start Date Expiration Date Visits V isits Requested Authorized [id number] Consult, 07/06/2018 07/06/2019 6 6 [facility] Encounter Details Date Type Department Care Team Description 10/04/2018 Office Visit Gastroenterology at [facility] OCarlos, Dyspepsia; [facility] Johnnie Wells APRN Gastroesophageal reflux disease, esophag [place] [address] [facility] [phone] [place] [address] Social History Tobacco Use Types Packs/Day Years Used Date Current Every Day Smoker 0.5 Smokeless Tobacco: Never Used Sex Assigned at Date Recorded Female 11/23/2020 9:22 AM EDT documented as of this encounter Last Filed Vital Signs Vital Sign Reading Time Taken Comments Blood Pressure 115/65 10/04/2018 8:15 AM EDT Pulse 99 10/04/2018 8:15 AM EDT Temperature - - Respiratory Rate - - Oxygen Saturation - - Inhaled Oxygen Concentration - - Weight 98.6 kg (217 lb 4.8 oz) 10/04/2018 8:15 AM EDT Height 167.6 cm (5' 6) 10/04/2018 8:15 AM EDT Body Mass Index 35.07 10/04/2018 8:15 AM EDT documented in this encounter Patient Instructions Patient InstructionsRussell Gee RN - 10/04/2018 8:00 AM EDT egd documented in this encounter Progress Notes Russell Gee RN - 10/04/2018 8:00 AM EDT Section of Gastroenterology and Hepatology [address] [place] [address] .Jovita Pop : 1990 Patient is here for further evaluation of gastrointestinal symptoms at the request of Awilda Martin. HPI: The patient is here for abdominal bloating and diarrhea. sx for awhile. I noticed the changein my bowels six months ago, they use to be pellet like now they are loose. She has numerous stools per day. No night time sx. No blood in stool. Stools can be urgent and explosive. No mucous in stools. One episode of thinking she was going to pass flatus and she passed liquid stool. No correlation with sx and diet. She can have intermittent bloating and distention. My abdomen becomes hard. Sx worse throughout the day. Eating is a trigger. Sx worse with foods like pasta and bread. They are not as bad with salads. Uncomfortable with pressure placed on abdomen. Can have a significant amount of gas. Bloating and distention improve with having a bowel movement or passing flatus. She experiences heartburn daily. She was taking protonix qd. She found helpful. No dysphagia, odynophagia, vomiting. Intermittent nausea. Early satiety. Reviewed diet. Stopped late night snacking. Coffee: 1-2 large DD with espresso. Diet rashaad jt. Does not eat breakfast. If she does, she will eat eggs with ketchup. No lunch. Gates dinner. Can binge eat. Hx of large dose of nsaids. But has stopped. Weight stable. Social History Socioeconomic History ??? Marital status: Single Spouse name: Not on file ??? Number of children: Not on file ??? Years of education: Not on file ??? Highest education level: Not on file Occupational History ??? Not on file Social Needs ??? Financial resource strain: Not on file ??? Food insecurity: Worry: Not on file Inability: Not on file ??? Transportation needs: Medical: Not on file Non-medical: Not on file Tobacco Use ??? Smoking status: Current Every Day Smoker Packs/day: 0.50 ??? Smokeless tobacco: Never Used Substance and Sexual Activity ??? Alcohol use: Not on file ??? Drug use: Not on file ??? Sexual activity: Not on file Lifestyle ??? Physical activity: Days per week: Not on file Minutes per session: Not on file ??? Stress: Not on file Relationships ??? Social connections: Talks on phone: Not on file Gets together: Not on file Attends shinto service: Not on file Active member of club or organization: Not on file Attends meetings of clubs or organizations: Not on file Relationship status: Not on file ??? Intimate partner violence: Fear of current or ex partner: Not on file Emotionally abused: Not on file Physically abused: Not on file Forced sexual activity: Not on file Other Topics Concern ??? Not on file Social History Narrative ??? Not on file Medical History: gerd; asthma; hypothyroidism; anxiety; depression Surgical History: tubal ligation Family History: mother: gerd; barretts Allergies Allergen Reactions ??? Trazodone Severe migraines Current Outpatient Medications: ??? escitalopram (LEXAPRO) 20 mg Tablet, take 1 and 1/2 tablet by mouth once daily, Disp: , Rfl: 0 ??? levothyroxine (SYNTHROID) 75 mcg Tablet, , Disp: , Rfl: 0 ??? ARIPiprazole (ABILIFY) 5 mg Tablet, take 1 tablet by mouth once daily, Disp: , Rfl: 0 ??? LORazepam (ATIVAN) 0.5 mg Tablet, take 1 to 2 tablets by mouth twice a day if needed, Disp: , Rfl: 0 ??? albuterol 90 mcg/actuation HFA Aerosol Inhaler, Inhale 2 puffs into the lungs as needed for Wheezing. Use with spacer, Disp: , Rfl: ??? pantoprazole (PROTONIX) 40 mg Tablet, Delayed Release (E.C.), Indications: ran out, needs new script, Disp: , Rfl: 0 Review of Systems - Negative except General: Cardiac: Resp: GI: see above : MS: Neuro: Skin: Psyche: Sleep: Endo: Physical Exam: soft, tender in gastric area, no mass or organomegaly Impression: 1. Gerd/dyspepsia: pantoprazole 40mg qd, 30 minutes before breakfast. Given long standing hx of sx schedule upper endoscopy. Long discussion with pt that many of her sx could be controlled with diet and lifestyle changes. Pt given information/resources for low fodmap and mediterranean diets. Exercise.Water. 2. F/u with pt once results received I spent a total of 54 minutes face to face with this patient; 40 minutes were spent counseling the patient in the medical problems described above. Sincerely, Russell Gee NP Section of Gastroenterology and Hepatology documented in this encounter Plan of Treatment Scheduled Orders Name Type Priority Associated Diagnoses Order S chedule UPPER GI ENDOSCOPY Procedures Routine Dyspepsia Ordered: 10/04/2018 Gastroesophageal reflux disease, esophagitis presence not specified documented as of this encounter Visit Diagnoses Diagnosis Dyspepsia Dyspepsia and other specified disorders of function of stomach Gastroesophageal reflux disease, esophag itis presence not specified documented in this encounter Care Teams Herbarium Worker Relationship Specialty Start Date End Date Awilda Martin PA PCP - General Family Medicine 07/06/18 10/31/19 [address] [place] [address] documented as of this encounter
--- OUTSIDE RECORDS SUMMARY | 2021-11-14 10:36 | XMS_ITS | Encounter Summary ---
:1990 Author Organization [facility] Address [address] [place] [address] Care Team Providers Name Role Phone Unavailable Primary Care Provider Unavailable Encounter Details Date Type Department Care Team Description 02/22/2009 Orders Only [facility] Mo Ring MD Laboratory Services - [facility] [address] [place] [address] [place], [place] [id number] [phone] Social History Tobacco Use Types Packs/Day Years Used Date Never Assessed Sex Assigned at Date Recorded Not on file documented as of this encounter Plan of Treatment Not on filedocumented as of this encounter Procedures Procedure Name Priority Date/Time Associated Diagnosis Comme [facility] SURGICAL PATHOLOGY Routine 02/22/2009 0:00 EST Re sults for this procedure are i n the results section. documented in this encounter Results SURGICAL PATHOLOGY (02/22/2009 0:00 EST) Pathology Report: SURGICAL PATHOLOGY REPORT ? [facility] Reports generated via IMNEXT interface contain original data; ? LAB however they are lacking the format of the original report. ? Caution should be taken when reading/interpreting unformatted reports. ? Name: ? DONN, EVELINA D ? Accession #: ? [id number] ? : ? 1990 (Age: 18) ??F ? Collec t Date: ? 02/22/2009 ? Location: ? [facility] ? R eceive Date: ? 02/25/2009 ? Provider: MO READY MD ? Copy to: ABI MALIK PA ? Final Pathologic Diagnosis: ? Skin of finger, left distal 4th, shave biopsy: ? - Pyogenic granuloma. ? Document reviewed and electr onically signed by: ? Chey Kennedy MD ? Report ??Date: 02/27/2009 20 :36 ? By the signature above, the attending physician certifies that he/she has ? personally conducted a gross and/or microscopic examination of the described ? specimens and rendered or co nfirmed the above diagnosis. ? Specimen(s) Received: ? Atypical growth on di stal 4th finger of L hand ? Clinical History: ? Atypical growth on 4t h finger distal of L hand ? Gross Description: ? Received in formalin labelled Donn, Evelina and atypical growth ? distal 4th finger L hand is a shave biopsy of a jameson, firm, asymmetrical nodule measuring 0.6 x 0.4 x 0.2 cm . ??The specimen is bisected and submitted entirely ?? in one cassette. ??(Heidi cardoza)/lgk ? End of Report ? Specimen Performing Organization Address City/State/ZIP Code Phon e Number [facility] [address] [place] [address] SERVICES [facility] [address] [place] [address] documented in this encounter Visit Diagnoses Not on filedocumented in this encounter
== END 2021-11-14 10:24 | disposition home or self-care (01) ==
LOC: LBN 10:23
PROVIDERS: PCP Physician Assistant Medical; Visit Provider Physician Assistant
DX: L02.214 Cutaneous abscess of groin
CPT/HCPCS: 87070; 87205

== ENCOUNTER 2021-12-15 04:51 | Outpatient (CLI) | payer OTHER, MEDICAID, SELFPAY ==
--- NOTE | 2021-12-15 13:00 | NS.NUTBLAN_ITS ---
Jovita returns for weight management counseling. Wt: 194, down 5 lbs in last 8 weeks. Down 18 lbs since June 2021, down 44 lbs from highest weight of 238 lbs. Meds: 0.5 mg ozempic No routine exercise. 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 Diet Recall: [employer] breakfast wrap, Skips lunch, home made dinner. Goal Wt: 180-185 lbs Jovita continues to make progress and losing weight with help from Ozempic. She is interested in increasing dose again. Encouraged Jovita to start counting her carbs with max intake of 100 grams daily and to eat 3 x daily. Can use premier protein shakes as meal replacement. Reviewed importance of increasing metabolic rate as she loses weight by eating on a schedule and having consistent exercise- a 20 min walk at lunch would suffice. Constipation still an issue despite trying Magnesium oxide. May need to add a fiber supplement such as citrucel along with mg oxide. Increase in vegetables also recommended. Follow up planned 02/09/22 at 1 pm.
== END 2021-12-15 04:52 | disposition home or self-care (01) ==
LOC: DS 04:51
PROVIDERS: PCP Physician Assistant Medical; Visit Provider Dietitian, Registered
DX: E66.8 Other obesity (principal); Z71.3 Dietary counseling and surveillance
CPT/HCPCS: 97803

== ENCOUNTER 2022-02-09 03:28 | Outpatient (CLI) | payer OTHER, MEDICAID, SELFPAY ==
--- NOTE | 2022-02-09 13:00 | NS.NUTBLAN_ITS ---
Jovita returns for weight management counseling. Wt: 190 lbs, down 4 lbs in last 6 weeks. Has lost a total of 22 lbs in last 8 months, down 48 lbs in last year. Has stopped ozempic secondary to side effects. Diet Recall: granola bar, yogurt, skipped lunch, salad and chicken Exercise: walks a lot during day at work Jovita continues to be very successful in losing weight. Her goal weight is 180 lbs and she is getting close to her goal. She is frustrated at slowness of weight loss. Reassured her that 1-2 lbs per week is goal for weight loss. Reviewed meal plans and reviewed importance of eating 3 meals per day, monitoring protein, and carb intake. Reviewed healthy snack ideas. Follow up sheduled for 03/02/22 at 1 pm.
== END 2022-02-09 03:29 | disposition home or self-care (01) ==
LOC: DS 03:28
PROVIDERS: PCP Physician Assistant Medical; Visit Provider Dietitian, Registered
DX: E66.8 Other obesity (principal); Z71.3 Dietary counseling and surveillance
CPT/HCPCS: 97803

== ENCOUNTER 2022-10-28 13:50 | Outpatient (REF) | payer OTHER, MEDICAID, SELFPAY ==
[2022-10-30 13:57] LABS: Chlamydia Result Negative (Negative); GC Result Negative (Negative)
== END 2022-10-28 13:51 | disposition home or self-care (01) ==
LOC: LBN 13:50
PROVIDERS: PCP Physician Assistant Medical; Visit Provider Physician Assistant
DX: N76.0 Acute vaginitis (principal); R10.9 Unspecified abdominal pain; Z11.3 Encounter for screening for infections with a predominantly sexual mode of transmission
CPT/HCPCS: 87491; 87591; 87480; 87510; 87660

== ENCOUNTER 2022-12-08 18:19 | Outpatient (REF) | payer OTHER, MEDICAID, SELFPAY ==
[2022-12-08 13:21] LABS: Abs Immature Grans 0.02 10^3/uL (0.0-0.06); Absolute Basophil Count 0.04 10^3/uL (0.0-0.2); Absolute Eosinophil Count 0.12 10^3/uL (0.0-0.7); Absolute Lymphocyte Count 2.24 10^3/uL (1.2-3.4); Absolute Monocyte Count 0.54 10^3/uL (0.1-0.8); Absolute Neutrophil Count 3.84 10^3/uL (1.2-6.7); Basophils % 0.6; Eosinophils % 1.8; HCT 37.3 % (36.0-46.0); HGB 12.4 g/dL (11.2-15.7); Immature Grans % 0.3; Lymphocytes % 32.9; MCH 28.6 pg (27.0-33.0); MCHC 33.2 % (32.0-36.0); MCV 86 fL (80-95); Monocytes % 7.9; Neutrophils % 56.5; Platelet Count 244 10^3/uL (130-400); RBC 4.34 10^6/uL (3.93-5.22); RDW 12.9 % (11.7-14.6); RDW-SD 40.2 fL
[2022-12-08 13:36] LABS: ALT 26 U/L (14-59); AST 12 U/L (15-37); Albumin 4.2 g/dL (3.4-5.0); Alkaline Phosphatase 50 U/L (46-116); BUN 12 mg/dL (7-18); Bilirubin, Total 0.4 mg/dL (0.2-1.0); CREATININE 0.8 mg/dL (0.55-1.02); Calcium 9.1 mg/dL (8.5-10.1); Chloride 102 mmol/L (98-107); Estimated GFR 99.71 (mL/min/1.73m2); Glucose 103 mg/dL (74-106); Potassium 3.7 mmol/L (3.5-5.1); Sodium 137 mmol/L (136-145); TSH 2.81 uIU/mL (0.36-3.74); Total Protein 6.9 g/dL (6.4-8.2)
== END 2022-12-08 18:20 | disposition home or self-care (01) ==
LOC: NCHCN 18:19
PROVIDERS: PCP Physician Assistant Medical; Visit Provider Physician Assistant Medical
DX: E03.9 Hypothyroidism, unspecified (principal); R51.9 Headache, unspecified
CPT/HCPCS: 80053; 83735; 84443; 85025

== ENCOUNTER 2023-02-12 16:10 | Outpatient (REF) | payer OTHER, MEDICAID, SELFPAY ==
[2023-02-12 14:30] LABS: Ferritin 18 ng/mL (8-252)
== END 2023-02-12 16:11 | disposition home or self-care (01) ==
LOC: NCHCN 16:10
PROVIDERS: PCP Physician Assistant Medical; Visit Provider Physician Assistant Medical
DX: G25.81 Restless legs syndrome (principal)
CPT/HCPCS: 82728

== ENCOUNTER 2023-03-01 04:18 | Outpatient (CLI) | payer OTHER, MEDICAID, SELFPAY ==
--- NOTE | 2023-03-01 13:00 | NS.NUTBLAN_ITS ---
Assessment: Ms. Pop presents for nutritional counseling for weight management as well as looking for tips to improve the nutritional quality of her diet. Over the past year she has lost significant weight. She was 240 lbs and is down to 187 lbs. Her goal weight is 170 to 175 lbs. She has started Wegovy and it is helping her with cravings and portions. Ms. Pop does admit to a steady diet of Diet Monster drinks and large sized candy bars. On the weekends she states she has 10 beers per day but only 2 beers per day during the week. Her diet recall is as follows: B: either none or up to 72 oz. of Diet Monster Energy drink L: Noodles or a salad. Large sized candy bar or chips D. Noodles, vegetable, protein Throughout the overnight she may have brownies, cookies, cereal in bed or on the couch watching television. At this time she states she is not ready to include intentional physical activity into her regimen. Nutrition Diagnosis: Poor nutritional quality diet related to high intake of enegy drinks (diet) as well as added sugars and simple carbohydrates Intervention: We discussed the several things Ms. Pop could do to improve the quality of her intake. At this time, Ms. Pop is going to keep a food journal to assess her baseline. She is going to focus less these next two weeks on what she is eating but she is going to have a rule that all food has to be eaten at the kitchen table. She will not eat on the couch or take food up to bed with her. Monitoring and Evaluation: Ms. Pop will monitor her intake with tracking and she will follow up with me for evaluation of her progress and to set new action plans if she is ready.
== END 2023-03-01 04:19 | disposition home or self-care (01) ==
PROVIDERS: PCP Physician Assistant Medical; Visit Provider Dietitian, Registered
DX: E66.8 Other obesity (principal); E63.1 Imbalance of constituents of food intake; Z71.3 Dietary counseling and surveillance
CPT/HCPCS: 97802

== ENCOUNTER 2023-05-04 20:40 | Outpatient (REF) | payer OTHER, MEDICAID, SELFPAY ==
[2023-05-04 20:47] LABS: Abs Immature Grans 0.01 10^3/uL (0.0-0.06); Absolute Basophil Count 0.04 10^3/uL (0.0-0.2); Absolute Eosinophil Count 0.14 10^3/uL (0.0-0.7); Absolute Lymphocyte Count 2.93 10^3/uL (1.2-3.4); Absolute Monocyte Count 0.54 10^3/uL (0.1-0.8); Absolute Neutrophil Count 4.56 10^3/uL (1.2-6.7); Basophils % 0.5; Eosinophils % 1.7; HCT 38.7 % (36.0-46.0); HGB 13.3 g/dL (11.2-15.7); Immature Grans % 0.1; Lymphocytes % 35.6; MCH 28.7 pg (27.0-33.0); MCHC 34.4 % (32.0-36.0); MCV 84 fL (80-95); MPV 10.8 fL (8.0-11.0); Monocytes % 6.6; Neutrophils % 55.5; Platelet Count 304 10^3/uL (130-400); RBC 4.63 10^6/uL (3.93-5.22); RDW 13.4 % (11.7-14.6); RDW-SD 40.7 fL; WBC 8.22 10^3/uL (4.4-10.8)
[2023-05-04 21:07] LABS: Hemoglobin A1C 5.1 % (<5.7)
[2023-05-04 21:15] LABS: ALT 22 U/L (14-59); AST 14 U/L (15-37); Alkaline Phosphatase 57 U/L (46-116); Bilirubin, Direct 0.1 mg/dL (0.0-0.2); Bilirubin, Total 0.4 mg/dL (0.2-1.0); TSH 2.49 uIU/mL (0.36-3.74); Total Protein 7.9 g/dL (6.4-8.2)
== END 2023-05-04 20:41 | disposition home or self-care (01) ==
LOC: NCHCN 20:40
PROVIDERS: PCP Physician Assistant Medical; Visit Provider Physician Assistant Medical
DX: E03.9 Hypothyroidism, unspecified (principal); K76.0 Fatty (change of) liver, not elsewhere classified; F10.10 Alcohol abuse, uncomplicated; E66.8 Other obesity; Z13.1 Encounter for screening for diabetes mellitus
CPT/HCPCS: 80076; 83036; 84443; 85025

== ENCOUNTER → 2023-05-24 13:48 | Outpatient (CLI) | payer OTHER, MEDICAID, SELFPAY ==
--- NOTE | 2023-05-24 11:45 | DI.RAD_ITS ---
Exam(s) XR HUMERUS LT EXAM: XR HUMERUS LT CLINICAL HISTORY: S49.92XA unspecified injury lt shoulder /upper arm, Fall with injury. TECHNIQUE: 2D digital imaging was performed of the left humerus. Two images were obtained. AP and lateral views were obtained. COMPARISON: CR LEFT FOREARM from 07/30/2017 FINDINGS: BONES: No acute fracture is present. No bony destructive lesion is seen. Visualized portion of elbow and shoulder joints are unremarkable. A sideplate and screws are seen in the mid radius. SOFT TISSUE: Normal. IMPRESSION: Unremarkable radiographs of the left humerus. DATA REPOSITORY: RADIATION DOSE DELIVERED:
== END ==
PROVIDERS: PCP Physician Assistant Medical; Visit Provider Nurse Practitioner Family
DX: S49.92XA Unspecified injury of left shoulder and upper arm, initial encounter (principal); X58.XXXA Exposure to other specified factors, initial encounter; W19.XXXA Unspecified fall, initial encounter
CPT/HCPCS: 73060

== ENCOUNTER → 2023-07-05 12:42 | Outpatient (CLI) | payer OTHER, MEDICAID, SELFPAY ==
--- NOTE | 2023-07-05 12:45 | DI.RAD_ITS ---
Exam(s) XR THUMB LT EXAM: XR THUMB LT EXAM DATE/TIME: CLINICAL HISTORY: traumatic injury yesterday with possible dislocation,lt thumb sprain,. TECHNIQUE: 2D digital imaging was performed of the left finger. Three views were obtained. PA/AP, oblique, and lateral views were obtained. COMPARISON: None. FINDINGS: BONES: No acute fracture is present. No bony destructive lesion is seen. JOINTS: No dislocation is present. SOFT TISSUE: Normal. IMPRESSION: No evidence of acute fracture or dislocation. DATA REPOSITORY: RADIATION DOSE DELIVERED:
== END ==
PROVIDERS: PCP Physician Assistant Medical; Visit Provider Nurse Practitioner Acute Care
DX: M79.645 Pain in left finger(s); S63.682A Other sprain of left thumb, initial encounter; X58.XXXA Exposure to other specified factors, initial encounter
CPT/HCPCS: 73140

== ENCOUNTER 2023-08-27 16:05 | Outpatient (REF) | payer OTHER, MEDICAID, SELFPAY | END 2023-08-27 16:06 | disposition home or self-care (01) | LOC: LBN 16:05 | PROVIDERS: PCP Physician Assistant Medical; Visit Provider Physician Assistant | DX: N94.9 Unspecified condition associated with female genital organs and menstrual cycle (principal) | CPT/HCPCS: 87480; 87510; 87660 ==

== ENCOUNTER 2023-11-01 20:01 | Outpatient (REF) | payer OTHER, SELFPAY ==
[2023-11-01 21:21] LABS: ALT 34 U/L (14-59); AST 14 U/L (15-37); Albumin 4.6 g/dL (3.4-5.0); Alkaline Phosphatase 60 U/L (46-116); Bilirubin, Direct 0.1 mg/dL (0.0-0.2); Bilirubin, Total 0.58 mg/dL (0.2-1.0); Ferritin 35 ng/mL (8-252); Total Protein 7.4 g/dL (6.4-8.2)
[2023-11-02 19:41] LABS: HIV-1/2 Ag & Ab Screen Negative (Negative)
[2023-11-02 19:42] LABS: Hepatitis C Ab w Rflx HCV PCR Negative (Negative)
[2023-11-03 08:42] LABS: Syphilis Serology (RPR) Negative (Negative)
[2023-11-03 08:59] LABS: Lyme Ab w Rflx to Lyme Confirm Negative (Negative)
[2023-11-03 14:21] LABS: Chlamydia Result Negative (Negative); GC Result Negative (Negative)
[2023-11-05 15:48] LABS: Anaplasma phagocytophilum Negative (Negative); B. miyamotoi PCR Negative (Negative); Babesia divergens/MO-1 Negative (Negative); Babesia duncani Negative (Negative); Babesia microti Negative (Negative); Ehrlichia chaffeensis Negative (Negative); Ehrlichia ewingii/canis Negative (Negative); Ehrlichia muris eauclairensis Negative (Negative)
== END 2023-11-01 20:02 | disposition home or self-care (01) ==
LOC: NCHCN 20:01
PROVIDERS: PCP Physician Assistant Medical; Referring Provider Physician Assistant Medical; Visit Provider Physician Assistant Medical
DX: R51.9 Headache, unspecified (principal); G25.81 Restless legs syndrome; Z11.3 Encounter for screening for infections with a predominantly sexual mode of transmission; K76.0 Fatty (change of) liver, not elsewhere classified
CPT/HCPCS: 80076; 86803; 87389; 87491; 87591; 87798; 82728; 83735; 86592; 86618

== ENCOUNTER 2024-01-12 19:43 | Outpatient (REF) | payer OTHER, SELFPAY ==
[2024-01-12 20:20] LABS: Ferritin 29 ng/mL (8-252)
== END 2024-01-12 19:44 | disposition home or self-care (01) ==
LOC: NCHCN 19:43
PROVIDERS: PCP Physician Assistant Medical; Visit Provider Nurse Practitioner Family
DX: G25.81 Restless legs syndrome (principal); D50.9 Iron deficiency anemia, unspecified
CPT/HCPCS: 82728

== ENCOUNTER 2024-02-08 01:52 | Outpatient (RCR) | payer OTHER, SELFPAY ==
[2024-01-17] MEDS: Normal Saline Flush 10 ML SYR IVP (11:37)
[2024-01-17] MEDS: IRON SUCROSE COMPLEX 200 MG in Normal Saline 100 ML 440 MG IVPB (11:37)
[2024-01-31] MEDS: Normal Saline Flush 10 ML SYR IVP (08:07)
[2024-01-31] MEDS: IRON SUCROSE COMPLEX 300 MG in Normal Saline 250 ML 176.667 MG IVPB (08:07)
== END 2024-02-12 23:59 | disposition home or self-care (01) ==
LOC: INF 01:52
PROVIDERS: PCP Physician Assistant Medical; Visit Provider Family Medicine
DX: D50.9 Iron deficiency anemia, unspecified; G25.81 Restless legs syndrome
CPT/HCPCS: 96365; 96366; J1756

== ENCOUNTER 2024-02-25 18:45 | Outpatient (REF) | payer OTHER, SELFPAY | END 2024-02-25 18:46 | disposition home or self-care (01) | LOC: LBN 18:45 | PROVIDERS: PCP Physician Assistant Medical; Visit Provider Physician Assistant | DX: N94.9 Unspecified condition associated with female genital organs and menstrual cycle (principal); R30.0 Dysuria | CPT/HCPCS: 87077; 87086; 87186; 87480; 87510; 87660 ==

== ENCOUNTER 2024-04-11 20:02 | Emergency (ER) | payer OTHER, SELFPAY ==
[2024-04-11 20:15] VITALS: BP 123/79; PULSE 80; RESP 20; TEMP 36.6; O2SAT 96
--- NOTE | 2024-04-11 22:05 | DI.RAD_ITS ---
Exam(s) XR SHOULDER RT COMPLETE 2+V XR SCAPULA RT EXAM: XR SHOULDER RT COMPLETE 2+V and XR scapula RT CLINICAL HISTORY: pain over scapula and shoulder. TECHNIQUE: 2D digital imaging was performed of the right scapula and shoulder. Seven images were ob tained. AP, Grashey, Y-view and axillary views were obtained. COMPARISON: CR,XR XR CHEST 2V PA LATERAL from 10/19/2021 FINDINGS: BONES: No acute fracture is present. No bony destructive lesion is seen. JOINTS: No dislocation present. The joint spaces are well maintained. SOFT TISSUE: Normal. IMPRESSION: No acute fracture or dislocation. DATA REPOSITORY: RADIATION DOSE DELIVERED:
[2024-04-11 22:42] VITALS: BP 122/78; PULSE 80; RESP 18; O2SAT 98
[2024-04-11] MEDS: Bupivacaine 0.5% Pres-Free 30 ML VIAL (22:42)
--- NOTE | 2024-04-11 22:56 | DI.VRAD_ITS ---
PROCEDURE INFORMATION: Exam: XR Right Scapula Exam date and time: 04/11/2024 10:00 PM Age: 33 years old Clinical indication: Injury or trauma; Other: Fell well skiing; Blunt trauma (contusions or hematomas); Right; Injury date: 04/04/24; Pain over scapula and shoulder TECHNIQUE: Imaging protocol: Radiologic exam of the right scapula. Complete exam. COMPARISON: CR XR SHOULDER RT COMPLETE 2+V 04/11/2024 9:56 PM FINDINGS: Bones/joints: Normal. Soft tissues: Normal. IMPRESSION: No acute findings. Dictated and Authenticated by: Rob Tang MD. Orderin Isidro Deras MD
--- NOTE | 2024-04-11 22:57 | DI.VRAD_ITS ---
PROCEDURE INFORMATION: Exam: XR Right Shoulder Exam date and time: 04/11/2024 9:56 PM Age: 33 years old Clinical indication: Injury or trauma; Other: Fell well skiing; Blunt trauma (contusions or hematomas); Right; Injury date: 04/04/24; Pain over scapula and shoulder TECHNIQUE: Imaging protocol: Radiologic exam of the right shoulder. Views: 2 or more views. COMPARISON: CR XR CHEST 2V PA LATERAL 10/19/2021 3:47 PM FINDINGS: Bones/joints: Normal. Soft tissues: Normal. IMPRESSION: No acute findings. Dictated and Authenticated by: Rob Tang MD. Orderin Isidro Deras MD
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
== END 2024-04-11 22:42 | disposition home or self-care (01) ==
PROVIDERS: Emergency Provider Physician Assistant; PCP Physician Assistant Medical
DX: S46.811A Strain of other muscles, fascia and tendons at shoulder and upper arm level, right arm, initial encounter (principal); W19.XXXA Unspecified fall, initial encounter; M25.511 Pain in right shoulder
CPT/HCPCS: 20552; 99284; 73010; 73030; J0665

== ENCOUNTER 2024-04-24 16:46 | Outpatient (REF) | payer OTHER, SELFPAY ==
[2024-04-24 15:52] LABS: HCT 38.6 % (36.0-46.0); HGB 13.2 g/dL (11.2-15.7); MCH 30.7 pg (27.0-33.0); MCHC 34.2 % (32.0-36.0); MCV 90 fL (80-95); MPV 10.7 fL (8.0-11.0); Platelet Count 265 10^3/uL (130-400); RDW 12.2 % (11.7-14.6); RDW-SD 39.8 fL; WBC 6.13 10^3/uL (4.4-10.8)
[2024-04-24 16:16] LABS: Hemoglobin A1C 5.1 % (<5.7)
[2024-04-24 16:26] LABS: ALT 25 U/L (14-59); AST 7 U/L (15-37); Albumin 4.5 g/dL (3.4-5.0); Alkaline Phosphatase 59 U/L (46-116); Bilirubin, Total 0.41 mg/dL (0.2-1.0); Calculated LDL 178 mg/dL (<100); Cholesterol 275 mg/dL (<200); Ferritin 110 ng/mL (8-252); HDL Cholesterol 46 mg/dL (40-60); TSH (W/Ref FT4) 3.13 uIU/mL (0.36-3.74); Total Protein 7.3 g/dL (6.4-8.2); Triglyceride 255 mg/dL (<150)
[2024-04-24 16:57] LABS: Bilirubin, Direct 0.1 mg/dL (0.0-0.2)
== END 2024-04-24 16:47 | disposition home or self-care (01) ==
LOC: NCHCN 16:46
PROVIDERS: PCP Physician Assistant Medical; Visit Provider Physician Assistant Medical
DX: G25.81 Restless legs syndrome (principal); E03.9 Hypothyroidism, unspecified
CPT/HCPCS: 80061; 80076; 85027; 82728; 83036; 84443

== ENCOUNTER 2024-05-03 12:14 | Outpatient (REF) | payer OTHER, SELFPAY ==
[2024-05-03 13:04] LABS: HCT 36.8 % (36.0-46.0); HGB 12.6 g/dL (11.2-15.7); MCH 30.8 pg (27.0-33.0); MCHC 34.2 % (32.0-36.0); MCV 90 fL (80-95); MPV 11.2 fL (8.0-11.0); Platelet Count 212 10^3/uL (130-400); RBC 4.09 10^6/uL (3.93-5.22); RDW 11.9 % (11.7-14.6); RDW-SD 38.9 fL; WBC 5.86 10^3/uL (4.4-10.8)
[2024-05-03 13:44] LABS: Total Iron Binding Capacity 312 ug/dL (250-450)
[2024-05-03 13:57] LABS: Ferritin 108 ng/mL (8-252)
== END 2024-05-03 12:15 | disposition home or self-care (01) ==
LOC: LBN 12:14
PROVIDERS: PCP Physician Assistant Medical; Visit Provider Obstetrics & Gynecology
DX: N93.9 Abnormal uterine and vaginal bleeding, unspecified (principal)
CPT/HCPCS: 85027; 82728; 83550

== ENCOUNTER 2024-06-15 22:28 | Outpatient (REF) | payer OTHER, SELFPAY ==
[2024-06-15 17:29] LABS: Abs Immature Grans 0.02 10^3/uL (0.0-0.06); Absolute Basophil Count 0.05 10^3/uL (0.0-0.2); Absolute Eosinophil Count 0.09 10^3/uL (0.0-0.7); Absolute Lymphocyte Count 2.73 10^3/uL (1.2-3.4); Absolute Monocyte Count 0.42 10^3/uL (0.1-0.8); Absolute Neutrophil Count 3.97 10^3/uL (1.2-6.7); Basophils % 0.7 %; Eosinophils % 1.2 %; HCT 37.8 % (36.0-46.0); HGB 12.9 g/dL (11.2-15.7); Immature Grans % 0.3 %; Lymphocytes % 37.5 %; MCH 31.3 pg (27.0-33.0); MCHC 34.1 % (32.0-36.0); MCV 92 fL (80-95); MPV 11.3 fL (8.0-11.0); Monocytes % 5.8 %; Neutrophils % 54.5 %; Platelet Count 251 10^3/uL (130-400); RBC 4.12 10^6/uL (3.93-5.22); RDW 11.9 % (11.7-14.6); RDW-SD 39.8 fL; WBC 7.28 10^3/uL (4.4-10.8)
[2024-06-15 18:09] LABS: Iron 93 ug/dL (50-170); Total Iron Binding Capacity 327 ug/dL (250-450); Transferrin Sat 28 % (15-50)
[2024-06-15 18:22] LABS: Ferritin 83 ng/mL (8-252)
== END 2024-06-15 22:29 | disposition home or self-care (01) ==
LOC: NCHCN 22:28
PROVIDERS: PCP Physician Assistant Medical; Visit Provider Physician Assistant Medical
DX: N92.0 Excessive and frequent menstruation with regular cycle (principal)
CPT/HCPCS: 82728; 83540; 83550; 85025

== ENCOUNTER 2024-09-29 12:18 | Outpatient (REF) | payer OTHER, SELFPAY ==
[2024-09-29 22:38] LABS: ALT 52 U/L (14-59); AST 25 U/L (15-37); Albumin 4.8 g/dL (3.4-5.0); Alkaline Phosphatase 124 U/L (46-116); Anion Gap 10.0 mmol/L (3-11); BUN 14 mg/dL (7-18); Bilirubin, Total 0.8 mg/dL (0.2-1.0); CO2 27.0 mmol/L (21.0-32.0); Calcium 9.3 mg/dL (8.5-10.1); Calculated LDL 175 mg/dL (<100); Chloride 102 mmol/L (98-107); Cholesterol 269 mg/dL (<200); Estimated GFR 98.48 (mL/min/1.73m2); Glucose 80 mg/dL (74-106); HDL Cholesterol 43 mg/dL (>or=50); Potassium 4.8 mmol/L (3.5-5.1); Sodium 139 mmol/L (136-145); Total Protein 7.9 g/dL (6.4-8.2); Triglyceride 257 mg/dL (<150)
[2024-10-02 11:51] LABS: Chlamydia Result Negative (Negative); GC Result Negative (Negative)
== END 2024-09-29 12:19 | disposition home or self-care (01) ==
LOC: LBN 12:18
PROVIDERS: PCP Nurse Practitioner Family; Visit Provider Nurse Practitioner Family
DX: K76.0 Fatty (change of) liver, not elsewhere classified (principal); Z11.3 Encounter for screening for infections with a predominantly sexual mode of transmission
CPT/HCPCS: 80053; 80061; 87491; 87591

== ENCOUNTER 2025-01-16 14:31 | Outpatient (REF) | payer OTHER, SELFPAY ==
[2025-01-16 15:55] LABS: ALT 34 U/L (14-59); AST 14 U/L (15-37); Albumin 4.3 g/dL (3.4-5.0); Alkaline Phosphatase 64 U/L (46-116); Anion Gap 8.2 mmol/L (3-11); BUN 11 mg/dL (7-18); Bilirubin, Total 0.4 mg/dL (0.2-1.0); CO2 28.8 mmol/L (21.0-32.0); Calcium 9.2 mg/dL (8.5-10.1); Chloride 104 mmol/L (98-107); Glucose 98 mg/dL (74-106); Potassium 4.4 mmol/L (3.5-5.1); Sodium 141 mmol/L (136-145); Total Protein 7.1 g/dL (6.4-8.2)
== END 2025-01-16 14:32 | disposition home or self-care (01) ==
LOC: LBN 14:31
PROVIDERS: PCP Nurse Practitioner Family; Visit Provider Nurse Practitioner Family
DX: K76.0 Fatty (change of) liver, not elsewhere classified (principal)
CPT/HCPCS: 80053